=== PATIENT | male | born 1945 | race Caucasian/White ===

== ENCOUNTER → 2018-05-12 09:29 | Outpatient (CLI) | payer MEDICARE, OTHER, SELFPAY ==
[2018-05-12 12:03] LABS: Absolute Lymphocyte Count 2.14 X10^3/ul (0.83-4.51); Absolute Neutrophil Count 4.2 X10^3/uL (2.0-7.7); Basophil# 0.03 X10^3/uL; Basophil% 0.4 % (0-1); Eosinophil# 0.23 X10^3/uL; Eosinophils% 3.1 % (0-5); Hematocrit 43.3 % (40-54); Hemoglobin 14.1 g/dl (13.0-16.5); Lymphocyte # 2.14 X10^3/ul (4.0); Lymphocyte % 28.7 % (19-41); Mean Corp Hgb Conc 32.6 g/gl (32-36); Mean Corpuscular Hgb 28.5 pg (27.0-32.0); Mean Corpuscular Volume 87.5 fL (80-94); Mean Platelet Vol. 10.9 fl (6.2-12.0); Monocyte# 0.83 X10^3/uL; Monocyte% 11.1 % (0-10); Neutrophil # 4.21 X10^3/uL (2.7-7.7); Neutrophil % 56.4 % (47-70); Platelet Count 223 K/mm3 (150-450); Red Blood Count 4.95 M/mm3 (4.6-6.2); White Blood Count 7.5 K/mm3 (4.4-11.0)
[2018-05-12 12:06] LABS: POSITIVE COUNT NO; POSITIVE DIFFERENTIAL NO; POSITIVE MORPHOLOGY NO
[2018-05-12 12:24] LABS: Hemoglobin A1c 5.8 % (4.2-6.3)
[2018-05-12 12:26] LABS: ALB/GLOB Ratio 1.1 RATIO (0.9-2.4); AST(SGOT) 18 U/L (15-37); Alanine Aminotransfer ALT/SGPT 28 U/L (16-61); Albumin, Serum 3.9 g/dL (3.2-5.0); Alkaline Phosphatase 94 U/L (45-117); Anion Gap 9 (5-15); BUN 14 mg/dL (7-18); BUN/Creat Ratio 13.7 RATIO (10-20); Calcium,Total 9.3 mg/dL (8.5-10.1); Chloride 105 mmol/L (98-107); Cholesterol 169 mg/dL (200); Creatinine, Serum 1.02 mg/dL (0.70-1.30); EST Glomerular Filtration Rate 76 mL/min (>60); Est Glom Filt Rate - Afr Amer 92 mL/min (>60); Globulin 3.6 g/dL (2.2-4.2); Glucose 119 mg/dL (74-106); High Density Lipoprotein 46 mg/dL; Potassium 4.4 mmol/L (3.5-5.1); Protein, Total 7.5 g/dL (6.4-8.2); Sodium Level 142 mmol/L (136-145); Triglycerides 121 mg/dL; Uric Acid 5.5 mg/dL (3.5-7.2); Very Low Density Lipoprotein 24 mg/dL (5-40)
[2018-05-12 12:40] LABS: Microalbumin:Creatinine Ratio 26.3 mg/g CRE (<30 mg/g CRE)
== END ==
PROVIDERS: Family Provider Family Medicine; PCP Family Medicine; Visit Provider Family Medicine
DX: E11.9 Type 2 diabetes mellitus without complications (principal); M10.9 Gout, unspecified; E66.9 Obesity, unspecified
CPT/HCPCS: 36415; 80053; 80061; 82043; 82570; 83036; 84550; 85025

== ENCOUNTER 2018-08-17 23:33 | Inpatient (IN) | payer MEDICARE, OTHER, SELFPAY ==
[2018-08-17 23:34] VITALS: BP 161/80; PULSE 96; RESP 20; TEMP 37.2; O2SAT 94; BMI 31.5
[2018-08-18] VITALS (15 sets, daily range): BP systolic 116–161; BP diastolic 60–87; PULSE 76–93; RESP 16–24; TEMP 36.6–37.2; O2SAT 90–100; BMI 31.6
--- NOTE | 2018-08-18 00:19 | ED.VISSUMM ---
- ER Visit Summary Date of Service: 08/18/18 Chief Complaint: Incontinence and confusion History of Present Illness: The patient is a 72 M who was brought to the emergency room by his because of incontinence and confusion. He also has a cough. Patient states there is nothing wrong with him. was the informant. He has been incontinent with increased urination the past 24-48 hours. He is also had a cough which is nonproductive. There is been no documented fever. History is limited because patient is disoriented. Physical Examination: Vital signs remarkable for blood pressure 161/80. Pulse ox is only 90% on room air. Patient is alert but he is disoriented. HEENT exam is remarkable for nasal congestion. Lungs reveal fine rales. Heart is regular. Abdomen is soft nontender. There is mild swelling of his extremities. Motor is 5/5. Sensations intact. DTRs symmetric. Cranial 2 through 12 are intact. Gait was not tested. Finger-nose to finger was performed well. Test Results: White count is 13.8 thousand with 79 segs no bands. Basic metabolic panel is unremarkable. Urine is remarkable for blood and ketones. There is no evidence of infection. Two-view chest x-ray reveals no acute pathology. Since patient is hypoxic with a normal chest x-ray will obtain a CTA to evaluate for pulmonary embolus. There may be a small pneumonia that was not detected on the x-ray. Because patient is disoriented incontinent will obtain a CT of the head to evaluate for intracranial reason for his change in mental status since there is no metabolic or infectious etiology. Emergency Department Course and Treatment: With history of confusion frequency and incontinence UA was obtained to assess for UTI. With complaint of runny nose abnormal auscultatory findings and pulse ox 90% chest x-ray appropriate blood work and influenza screen was obtained to evaluate his respiratory symptoms. Believe patient has infectious encephalopathy and reason he is disoriented. CT was not obtained since he does not have focal neurologic findings. Treatment Plan: Further testing and disposition once all tests are done Disposition: Pending Impression: 1. Hypoxia, pulse ox 88% room air 2. Acute disorientation/change in mental status with incontinence evaluate for normal pressure hydrocephalus 3. History of diabetes 4. History hypercholesterolemia 5. History of benign prostatic hypertrophy This note was generated with [employer] software. It may contain incorrect words, spelling, and punctuation that were not noted in review of the chart prior to signing Is unchanged ED Disposition - Plan for ED Patient: Chief Complaint: Complaint Referrals: Dallas Vitale DO [Primary Care Provider] -
[2018-08-18 00:33] LABS: Bacteria 0 SEEN /hpf (None Seen); Mucous, Urine 0 SEEN /hpf (<or=2+); Red Blood Cells-Urine 0 SEEN /hpf (0-5); Squamous Epithelial Cells - UA 0 SEEN /hpf (0-5); White Blood Cells 0 SEEN /hpf (0-5)
[2018-08-18 00:39] LABS: Color, Urine Yellow (Yellow); Glucose, Dipstick Normal (Normal); Ketone-Dipstick 15 mg/dl (Negative); Leukocyte Esterase-Dipstick Negative /ul (Negative); Nitrite-Dipstick Negative (Negative); Occult Blood-Urine 150 /ul (Negative); Protein-Dipstick 100 mg/dl (Negative); Specific Gravity, Urine 1.015 (1.002-1.030); Urine Bilirubin Dipstick Negative (Negative); Urine Clarity Clear (Clear); Urine Urobilinogen 4 mg/dl (Normal)
[2018-08-18 00:40] LABS: Anion Gap 8 (5-15); BUN 16 mg/dL (7-18); BUN/Creat Ratio 14.3 RATIO (10-20); Calcium,Total 8.9 mg/dL (8.5-10.1); Chloride 103 mmol/L (98-107); Creatinine, Serum 1.12 mg/dL (0.70-1.30); EST Glomerular Filtration Rate 68 mL/min (>60); Est Glom Filt Rate - Afr Amer 82 mL/min (>60); Estimated Creatinine Clearance 60.65 ml/min; Glucose 132 mg/dL (74-106); Potassium 3.8 mmol/L (3.5-5.1); Sodium Level 135 mmol/L (136-145)
[2018-08-18 00:43] LABS: Absolute Lymphocyte Count 1.01 X10^3/ul (0.83-4.51); Absolute Neutrophil Count 10.9 X10^3/uL (2.0-7.7); Basophil# 0.02 X10^3/uL; Basophil% 0.1 % (0-1); Eosinophil# 0.03 X10^3/uL; Eosinophils% 0.2 % (0-5); Hematocrit 40.6 % (40-54); Hemoglobin 13.3 g/dl (13.0-16.5); Lymphocyte # 1.01 X10^3/ul (4.0); Lymphocyte % 7.3 % (19-41); Mean Corp Hgb Conc 32.8 g/gl (32-36); Mean Corpuscular Volume 85.5 fL (80-94); Mean Platelet Vol. 9.9 fl (6.2-12.0); Monocyte# 1.79 X10^3/uL; Neutrophil # 10.94 X10^3/uL (2.7-7.7); Neutrophil % 79.2 % (47-70); Platelet Count 175 K/mm3 (150-450); RBC Distribution Width CV 13.7 % (11.6-14.6); RBC Distribution Width SD 42.9 fl (35.1-43.9); Red Blood Count 4.75 M/mm3 (4.6-6.2); White Blood Count 13.8 K/mm3 (4.4-11.0)
--- NOTE | 2018-08-18 00:47 | RAD_ITS ---
STUDY: X-RAY CHEST REASON FOR EXAM: Male, 72 years old. Cough TECHNIQUE: Frontal and lateral views of the chest. COMPARISON: None. FINDINGS: Subsegmental atelectases are noted in the right and left lung bases. There is no demonstrated pleural abnormality. Normal size heart. Normal mediastinum and norberto. Normal visualized pulmonary arteries. Normal visualized aortic arch and descending thoracic aorta. There are diffuse degenerative changes and dextroscoliosis of the visualized thoracic spine. Normal visualized ribs, clavicles, and shoulders. There is no demonstrated abnormality of the visualized soft tissue structures of the upper abdomen. RAD/Chest PA and Lateral IMPRESSION: Degenerative changes, as described above. No demonstrated acute cardiopulmonary process. Electronically Signed: Ryan Abreu MD at 1:38 EST Tel , Service support ,
[2018-08-18 00:48] LABS: Differential Indicated SCAN CRITERIA MET; POSITIVE COUNT NO; POSITIVE DIFFERENTIAL YES; POSITIVE MORPHOLOGY NO
--- NOTE | 2018-08-18 00:56 | CT_ITS ---
STUDY: CTA CHEST REASON FOR EXAM: Male, 72 years old. Hypoxia. RADIATION DOSAGE (If Supplied By Facility): CTDIvol = ( 19.63 ) mGy, DLP = ( 726.69 ) mGycm TECHNIQUE: The examination was performed with the intravenous administration of 100 ml of Isovue 370 contrast material. Post-processing of the angiographic images was performed, with multiplanar reformation, but without 3D reconstruction. Individualized dose optimization techniques were used for this CT. COMPARISON: Chest x-ray 08/18/2018. FINDINGS: Normal enhancement of the main pulmonary artery and right and left pulmonary arteries. Normal enhancement of the bilateral peripheral pulmonary arteries. There is no demonstrated pulmonary embolism. There is mild atherosclerotic calcification of the thoracic aorta and visualized great vessels. The left common carotid artery originates from the right brachiocephalic artery, consistent with bovine configuration of the great vessels, a developmental variant. There is no demonstrated aortic dissection. Normal heart and pericardium. There are coronary artery calcifications. There are visualized mediastinal lymph nodes, which are within normal size limits, and with normal morphology. There is an enlarged right hilar lymph node with short axis diameter 1.3 cm. Normal visualized trachea. There is mild bronchiectasis, which is most evident in the lower lobes. There is bronchial wall thickening, is most prominent in the right upper lobe and may represent an infectious or inflammatory bronchitis.. The lungs are hyper expanded, with flattening of the hemidiaphragms. Normal pulmonary parenchyma. Normal pleura. Normal chest wall structures. There are degenerative changes of thoracic spine. There is a small hiatal hernia. CT/CTA Chest W/WO Contrast IMPRESSION: No demonstrated pulmonary embolism, aortic aneurysm, or aortic dissection. COPD. Bronchiectasis. Bronchial wall thickening, most prominent in the right upper lobe, may represent an infectious or inflammatory bronchitis. Atherosclerosis. Mild right hilar lymphadenopathy. Electronically Signed: Bro Fuentes MD at 2:47 EST , Service support ,
--- NOTE | 2018-08-18 00:59 | CT_ITS ---
STUDY: CT BRAIN WITHOUT CONTRAST REASON FOR EXAM: Male, 72 years old. Altered mental status. Incontinence. RADIATION DOSAGE (If Supplied By Facility): CTDIvol = ( 44.99 ) mGy, DLP = ( 812.98 ) mGycm TECHNIQUE: Transaxial CT imaging of the brain was performed without administration of intravenous contrast material. Individualized dose optimization techniques were used for this CT. COMPARISON: None. FINDINGS: Normal soft tissue structures. There is hyperostosis frontalis internus. There is mild cerebral atrophy with widening of the extra-axial spaces and ventricular dilatation. There are areas of decreased attenuation within the white matter tracts of the supratentorial brain, consistent with microvascular disease changes. Normal basal ganglia and thalami. Normal brainstem. Normal cerebellum. There is atherosclerotic calcification of the vertebral and cavernous carotid arteries. There is no intracranial hemorrhage. There are no findings of an acute ischemic infarction. There is mucoperiosteal thickening in bilateral maxillary, bilateral ethmoid, and left frontal sinuses, consistent with chronic sinusitis. There is a small amount of fluid with air-fluid levels in the maxillary sinuses bilaterally, consistent with overlying acute sinusitis. CT/Brain/Head without Contrast IMPRESSION: Chronic involutional changes of the brain. No demonstrated acute intracranial process. Mild bilateral acute maxillary sinusitis, overlying more extensive chronic sinus disease. Electronically Signed: Bro Fuentes MD at 2:28 EST , Service support ,
[2018-08-18 01:13] LABS: Differential Comment SCANNED
--- NOTE | 2018-08-18 03:37 | PCM.HP.STD ---
Problem List (1) Acute bronchitis Status: Acute History of Present Illness Date of Admission: 08/18/18 Chief Complaint: cold-like symptoms The patient is a 72 year old M with a significant history of dementia; hypertension; diabetes mellitus; gout; benign prostatic hypertrophy; obstructive sleep apnea; obstructive sleep apnea status post uvulopalatoplasty who came to the hospital because of cold-like symptoms. History was obtained from patient's as patient was confused and was confabulating. reports that patient has had cold-like symptoms. She described the cold symptoms as a runny nose and cough. Associated with her symptoms is chills. Although patient has a baseline dementia his reports that patient has had an increase in his confusion. Unlike previous patient has been incontinent. And he appeared very weak. Because of history of previous UTI his thought that may be he is having a UTI so he was brought to the emergency department. However at emergency department his urine did not show UTI but it showed proteinuria. He had leukocytosis of 13.8 and mild hyponatremia. Chest x-ray was unremarkable. However a CTA of his chest showed bronchiectasis and bronchial wall thickening. Emergency department doctor reported that was on room air patient oxygen saturation was 88%. Past Medical History Medical History: Medical History (Last Updated 08/18/18 @ 04:47 by Bowen Lechuga MD) BPH (benign prostatic hyperplasia) N40.0 Dementia F03.90 Diabetes E11.9 Gout M10.9 HTN (hypertension) I10 Allergies Penicillins Allergy (Verified 08/17/18 23:34) Unknown Home Medications: Ambulatory Orders Medication Instructions Recorded Allopurinol 100 mg PO DAILY 01/07/15 Lovastatin 20 mg PO DAILY 01/07/15 Metformin HCl [Glucophage] 500 mg PO DAILY 01/07/15 Aspirin [Aspirin, Baby] 81 mg PO DAILY 08/17/18 Memantine HCl 10 mg PO BID 08/17/18 Surgical History: appendectomy - Patient reported that while his appendix was being taken out his gallbladder was taken out too. But his is not sure whether indeed his gallbladder was taken out too., total hip arthroplasty - Left hip, - - Left shoulder surgery. Lives: Spouse/ Significant Other Smoking Status: Never smoker Alcohol: None - *Family History Maternal Family History: Family History (Last Updated 08/18/18 @ 04:49 by Bowen Lechuga MD) Mother Hypertension Father CVA (cerebral vascular accident) Review of Systems Constitutional: Reports: Chills, Weakness. Denies: Fever, Weight Change HEENT: Reports: Sinus Congestion, Sinus Drainage. Denies: Head Aches Cardiovascular: Denies: Chest Pain, Palpitations Respiratory: Reports: Cough, Sputum production Gastrointestinal: Denies: Abdominal Pain, Nausea, Vomiting Genitourinary: Reports: Incontinence. Denies: Dysuria Musculoskeletal: Denies: Joint Pain, Joint Tenderness Skin: Denies: Rash, Wounds Neurological: Denies: Numbness, Tingling, Focal weakness Psychiatric: Denies: Anxiety, Depression, Homicidal Ideations, Suicidal Ideations Hematologic/ Lymphatic: Denies: Easy Bruising, Easy Bleeding VTE Information - Inpt Only VTE Present on Admission: No VTE Mechan Device Prophylaxis: None VTE Pharm Prophylaxis ordered?: Yes Patient Problems: Active and Suspected Problems (Last Updated 08/18/18 @ 04:47 by Bowen Lechuga MD) Acute bronchitis (Acute) - Physical Exam General: Alert, Confused HEENT: Atraumatic, PERRLA, EOMI, Normocephalic Neck: Supple, No JVD, Negative Carotid Bruits Lungs: Rales, Wheezes Cardiovascular: Regular rate Abdomen: Bowel Sounds Present, Non Tender Extremities: No edema, Capillary Refill Less than 3 Seconds Skin: No rashes, No breakdown Musculoskeletal: No Muscle Wasting Neurological: - - Patient is confused and he is confabulating. Psych/Mental Status: Appropriate Vital Signs Temp Pulse Resp BP Pulse Ox 98.9 F 85 18 140/81 H 92 08/18/18 02:31 08/18/18 02:31 08/18/18 02:31 08/18/18 02:31 08/18/18 02:31 Oxygen Flow Rate (L/min) 2 Oxygen Delivery Method Nasal Cannula Weight: 99.79 kg Body Mass Index (BMI) 31.5 Microbiology Past 72 Hours 08/18/18 00:45 Influenza Types A,B Direct FA (ABDIRAHMAN) - Final Mucosa - Nasopharyngeal Laboratory Tests Past 24 Hrs 08/17/18 08/17/18 08/17/18 00:14 00:14 00:14 WBC 13.8 H RBC 4.75 Hgb 13.3 Hct 40.6 MCV 85.5 MCH 28.0 MCHC 32.8 RDW 13.7 RDW Differential 42.9 Plt Count 175 MPV 9.9 Immature Gran % (Auto) 0.200 Neut % (Auto) 79.2 H Lymph % (Auto) 7.3 L [place] % (Auto) 13.0 H Eos % (Auto) 0.2 Baso % (Auto) 0.1 Absolute Neuts (auto) 10.9 H Absolute Lymphs (auto) 1.01 Total Counted Not Reportable Differential Comment SCANNED Diff Path Review May foll Sodium 135 L Potassium 3.8 Chloride 103 Carbon Dioxide 24.0 Anion Gap 8 BUN 16 Creatinine 1.12 Estim Creat Clear Calc 60.65 Est GFR (MDRD) Af Amer 82 Est GFR (MDRD) Non-Af 68 BUN/Creatinine Ratio 14.3 Glucose 132 H Lactic Acid 1.0 Calcium 8.9 Urine Color Urine Clarity Urine pH Ur Specific [place] Urine Protein Urine Glucose (UA) Urine Ketones Urine Occult Blood Urine Nitrite Urine Bilirubin Urine Urobilinogen Ur Leukocyte Esterase Urine RBC Urine WBC Ur Squamous Epith Cells Urine Bacteria Urine Mucus 08/17/18 00:50 WBC RBC Hgb Hct MCV MCH MCHC RDW RDW Differential Plt Count MPV Immature Gran % (Auto) Neut % (Auto) Lymph % (Auto) [place] % (Auto) Eos % (Auto) Baso % (Auto) Absolute Neuts (auto) Absolute Lymphs (auto) Total Counted Differential Comment Diff Path Review Sodium Potassium Chloride Carbon Dioxide Anion Gap BUN Creatinine Estim Creat Clear Calc Est GFR (MDRD) Af Amer Est GFR (MDRD) Non-Af BUN/Creatinine Ratio Glucose Lactic Acid Calcium Urine Color Yellow Urine Clarity Clear Urine pH 5.0 Ur Specific [place] 1.015 Urine Protein 100 H Urine Glucose (UA) Normal Urine Ketones 15 H Urine Occult Blood 150 H Urine Nitrite Negative Urine Bilirubin Negative Urine Urobilinogen 4 H Ur Leukocyte Esterase Negative Urine RBC 0 SEEN Urine WBC 0 SEEN Ur Squamous Epith Cells 0 SEEN Urine Bacteria 0 SEEN Urine Mucus 0 SEEN Assessment/Plan All Active Problems (Last Updated 08/18/18 @ 04:47 by Bowen Lechuga MD) Acute bronchitis (Acute) The patient is a 72 year old M with a significant history of dementia; hypertension; diabetes mellitus; gout; benign prostatic hypertrophy; obstructive sleep apnea; obstructive sleep apnea status post uvulopalatoplasty who came to the hospital because of cold-like symptoms; incontinence of urine a; mild leukocytosis and radiographic evidence of bronchiectasis and bronchial wall thickening.. Acute hypoxemic respiratory failure secondary to bronchiectasis with acute bronchitis. Patient with oxygen saturation of 88% on room air whiles at emergency department. And on 2 L his oxygen saturation was 92%. Levaquin was started at emergency departments. We will continue Levaquin. Because patient had moderate wheezing and rhonchi will initiate prednisone treatment. Scheduled DuoNeb As needed albuterol ordered Flonase and Mucinex ordered. Will order a comprehensive respiratory pathogen panel. His rapid influenza screen was negative. Supplemental oxygen to keep his saturation above 90%. 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 Trend BMP. Diabetes mellitus On admission his blood glucose was within goal. We will continue home metformin. Hypertension His blood pressure on admission was stable for his age and comorbidities. Not on any home blood pressure medication Trend blood pressure Obstructive Sleep apnea BiPAP continued. DVT prophylaxis Subcutaneous heparin. Code Visit Inpatient E&M: 16188 Init Hosp L3
[2018-08-18] MEDS: levoFLOXacin IV 750 MG/150 ML BAG 100 MG IV ×2 (04:25→22:01)
[2018-08-18] MEDS: predniSONE 20 MG Tablet 40 MG PO (05:36)
[2018-08-18] MEDS: Fluticasone 0.05% 1 SPRAY NASAL.SRY NASAL ×2 (05:36→22:00)
[2018-08-18] MEDS: Ipratropium/Albuterol Sulfate 3 ML AMPUL.NEB INHALATION ×5 (07:13→23:46)
[2018-08-18] MEDS: Allopurinol 100 MG Tablet PO (09:56)
[2018-08-18] MEDS: guaiFENesin 1,200 MG Tablet 1200 MG PO ×2 (09:56→22:01)
[2018-08-18] MEDS: Memantine Hydrochloride 10 MG Tablet PO ×2 (09:56→22:01)
[2018-08-18] MEDS: Enoxaparin 40 MG/0.4 ML Syringe SC (09:57)
[2018-08-18] MEDS: Aspirin 81 MG TAB.CHEW PO (09:57)
[2018-08-18] MEDS: Glucerna Shake 120 ML LIQUID PO ×2 (09:57→12:48)
--- NOTE | 2018-08-18 10:00 | CASEMGMT ---
RN QUINTIN Face to Face with patient for initial transition planning/care coordination assessment. RN QUINTIN introduced self and role at [facility]. Patient sitting in chair, alert and oriented, family at bedside. Patient willing to participate in assessment and is able to answer all questions appropriately. Care providers, pharmacy, and demographics verified. Patient wishes to discharge home, denies need for HHC. Patient states he has no further needs or concerns at this time. CM to continue to follow patient for discharge needs. PCP: Iam Specialists: None Preferred Pharmacy: [facility] Insurance: [facility] Prescription Benefit: Yes Living Will/HPOA: Yes Sobeida Zavala HPOA LNOK: , daughter Living Arrangements: Patient lives with in split level home. Patient is indepedent at home. Ramp to enter the home. Transportation: Family DME/HHC: Patient has cane, walker, and Cpap at home. Denies HHC Disposition Plan: Patient to discharge home with family support and follow-up plans in place. Kelly SANTIAGO, RN, CM
[2018-08-18 10:57] LABS: Pathologist Review Reviewed
--- NOTE | 2018-08-18 21:19 | PN_ITS ---
Patient Problems: Active and Suspected Problems (Last Updated 08/18/18 @ 04:47 by Bowen Lechuga MD) Acute bronchitis (Acute) Subjective: Patient is a 72-year-old male with a past medical history of dementia, hypertension, diabetes mellitus, gout, BPH, obstructive sleep apnea (noncompliant with CPAP) who presented to the emergency department at [facility] on 08/18/2018 with cough and increased confusion. His stated he had a runny nose and had chills at home. He has gotten progressively weaker over the past few days. He was afebrile in the emergency room with a blood pressure of 161/80, respiratory rate of 20 and a pulse ox of 90-94% on room air. White blood cell count was elevated at 13.8 with 80% neutrophils. Sodium was mildly decreased at 135. Lactic acid was 1.0 and a UA was negative for evidence of urinary tract infection. Influenza swab in the emergency department was negative however respiratory panel was positive for influenza A. The pt has no complaints at this time. He is oriented to person. Objective: PHYSICAL EXAM: GENERAL: alert, oriented X 1, Cooperative, NAD, the head is atraumatic ORAL: moist mucosa, no mucosal lesions NECK: No JVD, supple, trachea midline LUNGS: Coarse breath sounds and expiratory wheezing throughout. There is symm etric chest expansion. He has no tachypnea and no conversational dyspnea. HEART: RRR, Normal S1 and S2, no rub, no gallop ABDOMEN: soft, NT, ND, BS present, no guarding with palpation EXTREMITIES: no edema, no cyanosis, no calf tenderness SKIN: No rashes, no breakdown NEUROLOGIC: no focal neurologic deficits, able to follow commands but is confused and confabulating. PSYCH: appropriate, normal affect, pleasant - Physical Exam Vital Signs Temp Pulse Resp BP Pulse Ox 97.8 F 76 20 H 116/60 100 08/18/18 16:00 08/18/18 20:00 08/18/18 20:00 08/18/18 16:00 08/18/18 16:00 Oxygen Flow Rate (L/min) 2 Oxygen Delivery Method Room Air Weight: 220 lb 0.341 oz Body Mass Index (BMI) 31.6 Intake and Output for Last 24 Hours 08/16/18 08/17/18 08/18/18 23:59 23:59 23:59 Intake Total 510 / 510 Balance 510 / 510 Microbiology Past 72 Hours 08/18/18 05:24 Gram Stain - Final Sputum, Expectorated/Coughed 08/18/18 07:25 Respiratory Panel (PCR) - Final Mucosa - Nasopharyngeal Influenza A (Subtype H3) 08/18/18 00:45 Influenza Types A,B Direct FA (ABDIRAHMAN) - Final Mucosa - Nasopharyngeal Laboratory Tests Past 24 Hrs 08/17/18 08/17/18 08/17/18 00:14 00:14 00:14 WBC 13.8 H RBC 4.75 Hgb 13.3 Hct 40.6 MCV 85.5 MCH 28.0 MCHC 32.8 RDW 13.7 RDW Differential 42.9 Plt Count 175 MPV 9.9 Immature Gran % (Auto) 0.200 Neut % (Auto) 79.2 H Lymph % (Auto) 7.3 L [place] % (Auto) 13.0 H Eos % (Auto) 0.2 Baso % (Auto) 0.1 Absolute Neuts (auto) 10.9 H Absolute Lymphs (auto) 1.01 Total Counted Not Reportable Differential Comment SCANNED Diff Path Review Reviewed Sodium 135 L Potassium 3.8 Chloride 103 Carbon Dioxide 24.0 Anion Gap 8 BUN 16 Creatinine 1.12 Estim Creat Clear Calc 60.65 Est GFR (MDRD) Af Amer 82 Est GFR (MDRD) Non-Af 68 BUN/Creatinine Ratio 14.3 Glucose 132 H Lactic Acid 1.0 Calcium 8.9 Urine Color Urine Clarity Urine pH Ur Specific [place] Urine Protein Urine Glucose (UA) Urine Ketones Urine Occult Blood Urine Nitrite Urine Bilirubin Urine Urobilinogen Ur Leukocyte Esterase Urine RBC Urine WBC Ur Squamous Epith Cells Urine Bacteria Urine Mucus 08/17/18 00:50 WBC RBC Hgb Hct MCV MCH MCHC RDW RDW Differential Plt Count MPV Immature Gran % (Auto) Neut % (Auto) Lymph % (Auto) [place] % (Auto) Eos % (Auto) Baso % (Auto) Absolute Neuts (auto) Absolute Lymphs (auto) Total Counted Differential Comment Diff Path Review Sodium Potassium Chloride Carbon Dioxide Anion Gap BUN Creatinine Estim Creat Clear Calc Est GFR (MDRD) Af Amer Est GFR (MDRD) Non-Af BUN/Creatinine Ratio Glucose Lactic Acid Calcium Urine Color Yellow Urine Clarity Clear Urine pH 5.0 Ur Specific [place] 1.015 Urine Protein 100 H Urine Glucose (UA) Normal Urine Ketones 15 H Urine Occult Blood 150 H Urine Nitrite Negative Urine Bilirubin Negative Urine Urobilinogen 4 H Ur Leukocyte Esterase Negative Urine RBC 0 SEEN Urine WBC 0 SEEN Ur Squamous Epith Cells 0 SEEN Urine Bacteria 0 SEEN Urine Mucus 0 SEEN Medical Necessity - Tobacco Use Smoking Status: Never smoker Assessment/Plan All Active Problems (Last Updated 08/18/18 @ 04:47 by Bowen Lechuga MD) Acute bronchitis (Acute) Impressions 1. Influenza A 2. Generalized debility with weakness 3. Dementia with probable coexisting encephalopathy secondary to infection 4. HARINDER-not always compliant with CPAP 5. BPH 6. Status post uvulopalatoplasty 7. Diabetes mellitus type 2 8. Gout 9. Hypertension His symptoms started approximately 1 week ago and therefore he is not a candidate for Tamiflu. Continue oxygen protocol Continue Lovenox for DVT prophylaxis Continue guaifenesin and DuoNeb's Continue Levaquin until the final sputum culture is available. Seroquel 25 mg at bedtime Continue prednisone and order accuchecks and SSI
[2018-08-18] MEDS: Atorvastatin Calcium 10 MG Tablet 5 MG PO (22:01)
[2018-08-18] MEDS: Insulin Lispro 100 UNIT/ML INSULN.PEN SC (22:16)
[2018-08-18 23:00] LABS: Bedside Glucose 216 mg/dL (70-110)
[2018-08-19] VITALS (11 sets, daily range): BP systolic 120–146; BP diastolic 72–77; PULSE 76–98; RESP 18–21; TEMP 36.8–37.1; O2SAT 91–97
[2018-08-19 06:56] LABS: Bedside Glucose 113 mg/dL (70-110)
[2018-08-19] MEDS: Ipratropium/Albuterol Sulfate 3 ML AMPUL.NEB INHALATION ×5 (07:03→22:22)
[2018-08-19 07:08] LABS: Absolute Lymphocyte Count 1.39 X10^3/ul (0.83-4.51); Basophil# 0.02 X10^3/uL; Basophil% 0.2 % (0-1); Eosinophil# 0.02 X10^3/uL; Eosinophils% 0.2 % (0-5); Hematocrit 36.8 % (40-54); Hemoglobin 12.2 g/dl (13.0-16.5); Lymphocyte # 1.39 X10^3/ul (4.0); Lymphocyte % 11.8 % (19-41); Mean Corp Hgb Conc 33.2 g/gl (32-36); Mean Corpuscular Hgb 28.2 pg (27.0-32.0); Mean Corpuscular Volume 85.2 fL (80-94); Mean Platelet Vol. 10.5 fl (6.2-12.0); Monocyte# 1.33 X10^3/uL; Monocyte% 11.3 % (0-10); Neutrophil # 9.01 X10^3/uL (2.7-7.7); Neutrophil % 76.3 % (47-70); Platelet Count 187 K/mm3 (150-450); RBC Distribution Width CV 13.7 % (11.6-14.6); RBC Distribution Width SD 42.8 fl (35.1-43.9); Red Blood Count 4.32 M/mm3 (4.6-6.2); White Blood Count 11.8 K/mm3 (4.4-11.0)
[2018-08-19 07:14] LABS: POSITIVE COUNT NO; POSITIVE DIFFERENTIAL NO; POSITIVE MORPHOLOGY NO
[2018-08-19 07:27] LABS: Anion Gap 11 (5-15); BUN 19 mg/dL (7-18); BUN/Creat Ratio 17.4 RATIO (10-20); Chloride 105 mmol/L (98-107); Creatinine, Serum 1.09 mg/dL (0.70-1.30); EST Glomerular Filtration Rate 70 mL/min (>60); Est Glom Filt Rate - Afr Amer 85 mL/min (>60); Estimated Creatinine Clearance 62.32 ml/min; Glucose 108 mg/dL (74-106); Phosphorus 2.3 mg/dL (2.5-4.9); Potassium 3.4 mmol/L (3.5-5.1); Sodium Level 140 mmol/L (136-145)
[2018-08-19] MEDS: Glucerna Shake 120 ML LIQUID PO ×3 (08:24→16:21)
[2018-08-19] MEDS: predniSONE 20 MG Tablet 40 MG PO (08:24)
[2018-08-19] MEDS: Allopurinol 100 MG Tablet PO (08:25)
[2018-08-19] MEDS: Aspirin 81 MG TAB.CHEW PO (08:25)
[2018-08-19 08:47] LABS: Hemoglobin A1c 6.1 % (4.2-6.3)
[2018-08-19] MEDS: Fluticasone 0.05% 1 SPRAY NASAL.SRY NASAL ×2 (09:45→21:52)
[2018-08-19] MEDS: guaiFENesin 1,200 MG Tablet 1200 MG PO ×2 (09:46→21:52)
[2018-08-19] MEDS: Enoxaparin 40 MG/0.4 ML Syringe SC (09:46)
[2018-08-19] MEDS: Memantine Hydrochloride 10 MG Tablet PO ×2 (09:46→21:52)
[2018-08-19] MEDS: Insulin Lispro 100 UNIT/ML INSULN.PEN SC ×3 (11:37→21:57)
[2018-08-19 11:56] LABS: Bedside Glucose 223 mg/dL (70-110)
--- NOTE | 2018-08-19 13:44 | PCM.PROGNOTE ---
Subjective: All events the past 24 hours of been reviewed. He remains afebrile Vital signs are stable Pulse ox on room air ranges from 92-96% Lab: Potassium is low at 3.4 today. White blood cell count remains elevated at 11.8, down from 13.8 at admission. Microbiology: Sputum is positive for streptococcal pneumoniae, respiratory panel was positive for influenza A He is more alert today. He has no complaints Objective: PHYSICAL EXAM: GENERAL: alert, oriented X 1, Cooperative, NAD, the head is atraumatic. more alert today ORAL: moist mucosa, no mucosal lesions NECK: No JVD, supple, trachea midline LUNGS: Coarse breath sounds with rare end exp wheeze today. There is symmetric chest expansion. He has no tachypnea and no conversational dyspnea. HEART: RRR, Normal S1 and S2, no rub, no gallop ABDOMEN: soft, NT, ND, BS present, no guarding with palpation EXTREMITIES: no edema, no cyanosis, no calf tenderness SKIN: No rashes, no breakdown NEUROLOGIC: no focal neurologic deficits, able to follow commands but is confused and confabulating. PSYCH: appropriate, normal affect, pleasant - Physical Exam Vital Signs Temp Pulse Resp BP Pulse Ox 98.2 F 92 20 H 143/73 H 97 08/19/18 08:10 08/19/18 08:10 08/19/18 10:52 08/19/18 08:10 08/19/18 08:10 Oxygen Flow Rate (L/min) 2 Oxygen Delivery Method Room Air Weight: 220 lb 0.341 oz Body Mass Index (BMI) 31.6 Intake and Output for Last 24 Hours 08/17/18 08/18/18 08/19/18 23:59 23:59 23:59 Intake Total 510 / 510 1539 / 1539 Output Total 1125 / 1125 Balance 510 / 510 414 / 414 Microbiology Past 72 Hours 08/18/18 05:24 Gram Stain - Final Sputum, Expectorated/Coughed Respiratory Culture - Preliminary Streptococcus group A 08/18/18 07:25 Respiratory Panel (PCR) - Final Mucosa - Nasopharyngeal Influenza A (Subtype H3) 08/18/18 00:45 Influenza Types A,B Direct FA (ABDIRAHMAN) - Final Mucosa - Nasopharyngeal Laboratory Tests Past 24 Hrs 08/19/18 08/19/18 08/19/18 06:05 06:05 06:05 WBC 11.8 H RBC 4.32 L Hgb 12.2 L Hct 36.8 L MCV 85.2 MCH 28.2 MCHC 33.2 RDW 13.7 RDW Differential 42.8 Plt Count 187 MPV 10.5 Immature Gran % (Auto) 0.200 Neut % (Auto) 76.3 H Lymph % (Auto) 11.8 L [place] % (Auto) 11.3 H Eos % (Auto) 0.2 Baso % (Auto) 0.2 Absolute Neuts (auto) 9.0 H Absolute Lymphs (auto) 1.39 Total Counted Not Reportable Sodium 140 Potassium 3.4 L Chloride 105 Carbon Dioxide 24.0 Anion Gap 11 BUN 19 H Creatinine 1.09 Estim Creat Clear Calc 62.32 Est GFR (MDRD) Af Amer 85 Est GFR (MDRD) Non-Af 70 BUN/Creatinine Ratio 17.4 Glucose 108 H Hemoglobin A1c 6.1 Calcium 9.0 Phosphorus 2.3 L Magnesium 2.0 POC Glucose 08/19/18 08/19/18 08/18/18 11:31 06:51 22:12 POC Glucose 223 H 113 H 216 H Medical Necessity - Tobacco Use Smoking Status: Never smoker Assessment/Plan All Active Problems (Last Updated 08/18/18 @ 04:47 by Bowen Lechuga MD) Encephalopathy due to infection (Acute) Streptococcus pneumoniae infection (Acute) Post viral debility (Acute) Influenza A (Acute) Acute bronchitis (Acute) Impressions 1. Influenza A 2. Generalized debility with weakness 3. Dementia with probable coexisting encephalopathy secondary to infection 4. HARINDER-not always compliant with CPAP 5. BPH 6. Status post uvulopalatoplasty 7. Diabetes mellitus type 2 8. Gout 9. Hypertension Continue current treatment Ambulatory pulse ox in the a.m. on room air Possible discharge tomorrow if he is able to ambulate Code Visit Inpatient E&M: 04333 Subs Hosp L2
[2018-08-19] MEDS: Ceftriaxone 1 GM/50 ML BAG IV (15:46)
[2018-08-19 16:32] LABS: Bedside Glucose 237 mg/dL (70-110)
[2018-08-19] MEDS: Atorvastatin Calcium 10 MG Tablet 5 MG PO (21:52)
[2018-08-19 22:11] LABS: Bedside Glucose 205 mg/dL (70-110)
[2018-08-20 03:10] VITALS: BP 122/80; PULSE 82; RESP 18; TEMP 36.6; O2SAT 94
[2018-08-20 06:46] LABS: Bedside Glucose 107 mg/dL (70-110)
[2018-08-20] MEDS: Ipratropium/Albuterol Sulfate 3 ML AMPUL.NEB INHALATION ×3 (07:34→15:09)
[2018-08-20 07:35] VITALS: PULSE 72; RESP 18; O2SAT 96
[2018-08-20 09:09] VITALS: BP 140/96; PULSE 87; RESP 18; TEMP 36.9; O2SAT 93
[2018-08-20] MEDS: Allopurinol 100 MG Tablet PO (09:12)
[2018-08-20] MEDS: Fluticasone 0.05% 1 SPRAY NASAL.SRY NASAL (09:12)
[2018-08-20] MEDS: Aspirin 81 MG TAB.CHEW PO (09:12)
[2018-08-20] MEDS: Enoxaparin 40 MG/0.4 ML Syringe SC (09:13)
[2018-08-20] MEDS: Memantine Hydrochloride 10 MG Tablet PO (09:15)
[2018-08-20] MEDS: predniSONE 20 MG Tablet 40 MG PO (09:15)
[2018-08-20] MEDS: Glucerna Shake 120 ML LIQUID PO ×2 (09:16→16:03)
[2018-08-20] MEDS: guaiFENesin 1,200 MG Tablet 1200 MG PO (09:16)
[2018-08-20] MEDS: Ceftriaxone 1 GM/50 ML BAG IV (09:19)
[2018-08-20] MEDS: Insulin Lispro 100 UNIT/ML INSULN.PEN SC ×2 (11:34→16:01)
[2018-08-20 11:35] VITALS: PULSE 82; RESP 18
[2018-08-20 12:16] LABS: Bedside Glucose 168 mg/dL (70-110)
[2018-08-20 14:03] VITALS: BP 117/67; PULSE 76; RESP 16; TEMP 36.2; O2SAT 95
[2018-08-20 15:10] VITALS: PULSE 74; RESP 18
[2018-08-20 16:26] LABS: Bedside Glucose 208 mg/dL (70-110)
--- NOTE | 2018-08-20 17:00 | DCINST_ITS ---
- Discharge Diagnoses Current Active Problems: Current Active and Chronic Problems (Last Updated 08/18/18 @ 04:47 by Bowen Lechuga MD) Acute bronchitis (Acute) secondary to Streptococcus pneumoniae and influenza a Post viral debility Encephalopathy due to infection You will use the following diet at home:: Other - Carbohydrate controlled diet Your food should be the consistency of: Regular Your liquids should be the consistency of: Regular/Thin Discharge Activity: - - Avoid exposure to any strong smells such as bleach, cleaning products, strong colognes or perfumes, paint fumes and smoke of any kind. Avoid sudden exposure to cold air because this can cause bronchospasm. You may want to cover your mouth when you go outside in the winter. Avoid exposure to anyone who is sick with a cough or sore throat. Call your doctor if you observe: Fever of 101 or Higher, Shortness of breath, Dizziness, Fainting spells, Chest pain, Calf discomfort Additional Instructions: The blood sugars will be high while he is on the Prednisone which is a steroid. This will make you urinate more so be sure todrink enough fluid to keep your urine a pale yellow. The HGBA1C is 6.1 and this is excellent. Allergies/Adverse Reactions: Allergies Penicillins Allergy (Verified 08/18/18 04:52) Unknown allergy occurred when he was a child - reaction unknown Medications to take at Discharge Allopurinol 100 mg PO DAILY 01/07/15 Lovastatin 40 mg PO DAILY 01/07/15 Metformin HCl [Glucophage] 500 mg PO DAILY 01/07/15 Aspirin [Aspirin, Baby] 81 mg PO DAILY 08/17/18 Memantine HCl 10 mg PO BID 08/17/18 Cefdinir [Omnicef [equiv]] 300 mg PO Q12H #10 capsule 08/20/18 Guaifenesin [Mucinex] 1,200 mg PO BID #20 tablet 08/20/18 Prednisone 10 mg PO UD #30 tab 08/20/18 The following prescriptions were given: Cefdinir [Omnicef [equiv]] 300 mg PO Q12H #10 capsule Prednisone 10 mg PO UD #30 tab Guaifenesin [Mucinex] 1,200 mg PO BID #20 tablet Primary Care Physician: Dallas Vitale DO [Primary Care Provider] - Please follow up with your Primary Care Physician in: 5-7 days Test Results: Test results from this visit will be discussed in further detail at your follow- up appointment, if applicable. Proposed Discharge Date: 08/20/18
--- NOTE | 2018-08-20 17:02 | PCM.DC.SUM ---
Discharge Date and Diagnosis - Problem List Patient Problems: Active and Suspected Problems (Last Updated 08/18/18 @ 04:47 by Bowen Lechuga MD) Encephalopathy due to infection (Acute) Streptococcus pneumoniae infection (Acute) Post viral debility (Acute) Influenza A (Acute) Acute bronchitis (Acute) Date of Admission: 08/18/18 Date of Discharge: 08/20/18 - Primary Discharge Diagnosis Active and Suspected Problems (Last Updated 08/18/18 @ 04:47 by Bowen Lechuga MD) Streptococcus pneumoniae infection (Acute) - bronchitis Influenza A (Acute) Acute bronchitis (Acute) Encephalopathy due to infection (Acute) Post viral debility (Acute) - Secondary Discharge Diagnosis Dementia Diabetes mellitus type 2 Obstructive sleep apnea-noncompliant with CPAP BPH Status post uvulopalatoplasty Gout Hypertension Hospital Course and Treatment Imaging Results: Clinical Impression(s) from Imaging Studies Chest X-Ray 08/18/18 00:47 IMPRESSION: Degenerative changes, as described above. No demonstrated acute cardiopulmonary process. Electronically Signed: Ryan Abreu MD at 1:38 EST Tel , Service support , Chest CTA 08/18/18 00:56 IMPRESSION: No demonstrated pulmonary embolism, aortic aneurysm, or aortic dissection. COPD. Bronchiectasis. Bronchial wall thickening, most prominent in the right upper lobe, may represent an infectious or inflammatory bronchitis. Atherosclerosis. Mild right hilar lymphadenopathy. Electronically Signed: Bro Fuentes MD at 2:47 EST , Service support , Brain CT 08/18/18 00:59 IMPRESSION: Chronic involutional changes of the brain. No demonstrated acute intracranial process. Mild bilateral acute maxillary sinusitis, overlying more extensive chronic sinus disease. Electronically Signed: Bro Fuentes MD at 2:28 EST , Service support , none Operations: None Procedures: None Summary of Care Provided: Patient is a 72-year-old male with a past medical history of dementia, hypertension, diabetes mellitus II, gout, BPH and obstructive sleep apnea (noncompliant with CPAP) who presented to the emergency department at [facility] on 08/18/2018 with cough and increased confusion. His stated he had a runny nose and had chills at home and that the sx had been present for about a week. He was getting progressively weaker over the few days preceding admission to the hospital. He was afebrile in the emergency room with a blood pressure of 161/80, respiratory rate of 20 and a pulse ox of 90-94% on room air. White blood cell count was elevated at 13.8 with 80% neutrophils. Sodium was mildly decreased at 135. Lactic acid was 1.0 and a UA was negative for evidence of urinary tract infection. Influenza swab in the emergency department was negative. Respiratory was positive for Influenza A He had already had SX for a week and Tamiflu was not indicated. He was admitted to the hospital and started on Steroids and aerosolized bronchodilators for acute bronchitis with Bronchospasm. He was also started on Levaquin by the admitting physician. A sputum was sent for culture and it was positive for group A strep. The antibiotic was changed to Rocephin. He was seen by PT and OT in the hospital and on 08/20/18 he was ambulated in the halls and did well. Physical therapy recommended no additional therapy. He was discharged home on 08/20/2018 with a prescription for Cefdinir 300 mg twice daily for 10 doses and a prednisone taper over the next 10 days. He will follow-up with Dr. Vitale in the office in 5-7 days. I reassured his that his blood sugars have been high because of the steroids and that his hemoglobin A1c is 6.1 so his diabetes is very well controlled as an outpatient. She was instructed that he will need to increase his fluid intake while on the Prednisone because the high blood sugars will make him urinate more. PHYSICAL EXAM: GENERAL: alert, oriented X 1, Cooperative, NAD, the head is atraumatic ORAL: moist mucosa, no mucosal lesions NECK: No JVD, supple, trachea midline LUNGS: Scattered mild expiratory wheezing with no rales. There is symmetric chest expansion. He has no tachypnea and no conversational dyspnea. HEART: RRR, Normal S1 and S2, no rub, no gallop ABDOMEN: soft, NT, ND, BS present, no guarding with palpation EXTREMITIES: no edema, no cyanosis, no calf tenderness SKIN: No rashes, no breakdown NEUROLOGIC: no focal neurologic deficits, able to follow commands but is confused and confabulating. PSYCH: appropriate, normal affect, pleasant This note was generated with [employer] software. It may contain incorrect words, spelling, and punctuation that were not noted in checking the note before signing. Patient Problems: Active and Suspected Problems (Last Updated 08/18/18 @ 04:47 by Bowen Lechuga MD) Encephalopathy due to infection (Acute) Streptococcus pneumoniae infection (Acute) Post viral debility (Acute) Influenza A (Acute) Acute bronchitis (Acute) - Physical Exam Vital Signs Temp Pulse Resp BP Pulse Ox 97.2 F L 74 18 117/67 95 08/20/18 14:03 08/20/18 15:10 08/20/18 15:10 08/20/18 14:03 08/20/18 14:03 Oxygen Flow Rate (L/min) 2 Oxygen Delivery Method Room Air Weight: 220 lb 0.341 oz Body Mass Index (BMI) 31.6 Intake and Output for Last 24 Hours 08/18/18 08/19/18 08/20/18 23:59 23:59 23:59 Intake Total 510 / 510 1539 / 1539 654 / 654 Output Total 1125 / 1125 300 / 300 Balance 510 / 510 414 / 414 354 / 354 Microbiology Past 72 Hours 08/18/18 05:24 Gram Stain - Final Sputum, Expectorated/Coughed Respiratory Culture - Final Streptococcus group A 08/18/18 07:25 Respiratory Panel (PCR) - Final Mucosa - Nasopharyngeal Influenza A (Subtype H3) 08/18/18 00:45 Influenza Types A,B Direct FA (ABDIRAHMAN) - Final Mucosa - Nasopharyngeal POC Glucose 08/20/18 08/20/18 08/20/18 16:00 11:32 06:39 POC Glucose 208 H 168 H 107 08/19/18 21:57 POC Glucose 205 H Discharge Activity: - - Avoid exposure to any strong smells such as bleach, cleaning products, strong colognes or perfumes, paint fumes and smoke of any kind. Avoid sudden exposure to cold air because this can cause bronchospasm. You may want to cover your mouth when you go outside in the winter. Avoid exposure to anyone who is sick with a cough or sore throat. Call your doctor if you observe: Fever of 101 or Higher, Shortness of breath, Dizziness, Fainting spells, Chest pain, Calf discomfort Home Medications: Medications to take at Discharge Allopurinol 100 mg PO DAILY 01/07/15 Lovastatin 40 mg PO DAILY 01/07/15 Metformin HCl [Glucophage] 500 mg PO DAILY 01/07/15 Aspirin [Aspirin, Baby] 81 mg PO DAILY 08/17/18 Memantine HCl 10 mg PO BID 08/17/18 Cefdinir [Omnicef [equiv]] 300 mg PO Q12H #10 capsule 08/20/18 Guaifenesin [Mucinex] 1,200 mg PO BID #20 tablet 08/20/18 Prednisone 10 mg PO UD #30 tab 08/20/18 Following Prescrptions Were Given to Patient: Cefdinir [Omnicef [equiv]] 300 mg PO Q12H #10 capsule Prednisone 10 mg PO UD #30 tab Guaifenesin [Mucinex] 1,200 mg PO BID #20 tablet Primary Care Physician: Dallas Vitale DO [Primary Care Provider] - Please follow up with your Primary Care Physician in: 5-7 days Disposition: Home Minutes spent on discharge:: 30 Patient Condition:: Good Medical Necessity - Tobacco Use Smoking Status: Never smoker Meaningful Use Info Meaningful Use Diagnoses (Choose all that apply): None applicable Code Visit Inpatient E&M: 54347 Disch Hosp
--- NOTE | 2018-08-20 17:06 | DS.PCM_ITS ---
Discharge Date and Diagnosis - Problem List Patient Problems: Active and Suspected Problems (Last Updated 08/18/18 @ 04:47 by Bowen Lechuga MD) Encephalopathy due to infection (Acute) Streptococcus pneumoniae infection (Acute) Post viral debility (Acute) Influenza A (Acute) Acute bronchitis (Acute) Date of Admission: 08/18/18 Date of Discharge: 08/20/18 - Primary Discharge Diagnosis Active and Suspected Problems (Last Updated 08/18/18 @ 04:47 by Bowen Lechuga MD) Streptococcus pneumoniae infection (Acute) - bronchitis Influenza A (Acute) Acute bronchitis (Acute) Encephalopathy due to infection (Acute) Post viral debility (Acute) - Secondary Discharge Diagnosis Dementia Diabetes mellitus type 2 Obstructive sleep apnea-noncompliant with CPAP BPH Status post uvulopalatoplasty Gout Hypertension Hospital Course and Treatment Imaging Results: Clinical Impression(s) from Imaging Studies Chest X-Ray 08/18/18 00:47 IMPRESSION: Degenerative changes, as described above. No demonstrated acute cardiopulmonary process. Electronically Signed: Ryan Abreu MD at 1:38 EST Tel , Service support , Chest CTA 08/18/18 00:56 IMPRESSION: No demonstrated pulmonary embolism, aortic aneurysm, or aortic dissection. COPD. Bronchiectasis. Bronchial wall thickening, most prominent in the right upper lobe, may represent an infectious or inflammatory bronchitis. Atherosclerosis. Mild right hilar lymphadenopathy. Electronically Signed: Bro Fuentes MD at 2:47 EST , Service support , Brain CT 08/18/18 00:59 IMPRESSION: Chronic involutional changes of the brain. No demonstrated acute intracranial process. Mild bilateral acute maxillary sinusitis, overlying more extensive chronic sinus disease. Electronically Signed: Bro Fuentes MD at 2:28 EST , Service support , none Operations: None Procedures: None Summary of Care Provided: Patient is a 72-year-old male with a past medical history of dementia, hypertension, diabetes mellitus II, gout, BPH and obstructive sleep apnea (noncompliant with CPAP) who presented to the emergency department at [facility] on 08/18/2018 with cough and increased confusion. His stated he had a runny nose and had chills at home and that the sx had been present for about a week. He was getting progressively weaker over the few days preceding admission to the hospital. He was afebrile in the emergency room with a blood pressure of 161/80, respiratory rate of 20 and a pulse ox of 90-94% on room air. White blood cell count was elevated at 13.8 with 80% neutrophils. Sodium was mildly decreased at 135. Lactic acid was 1.0 and a UA was negative for evidence of urinary tract infection. Influenza swab in the emergency department was negative. Respiratory was positive for Influenza A He had already had SX for a week and Tamiflu was not indicated. He was admitted to the hospital and started on Steroids and aerosolized bronchodilators for acute bronchitis with Bronchospasm. He was also started on Levaquin by the admitting physician. A sputum was sent for culture and it was positive for group A strep. The antibiotic was changed to Rocephin. He was seen by PT and OT in the hospital and on 08/20/18 he was ambulated in the halls and did well. Physical therapy recommended no additional therapy. He was discharged home on 08/20/2018 with a prescription for Cefdinir 300 mg twice daily for 10 doses and a prednisone taper over the next 10 days. He will follow-up with Dr. Vitale in the office in 5-7 days. I reassured his that his blood sugars have been high because of the steroids and that his h emoglobin A1c is 6.1 so his diabetes is very well controlled as an outpatient. She was instructed that he will need to increase his fluid intake while on the Prednisone because the high blood sugars will make him urinate more. PHYSICAL EXAM: GENERAL: alert, oriented X 1, Cooperative, NAD, the head is atraumatic ORAL: moist mucosa, no mucosal lesions NECK: No JVD, supple, trachea midline LUNGS: Scattered mild expiratory wheezing with no rales. There is symmetric chest expansion. He has no tachypnea and no conversational dyspnea. HEART: RRR, Normal S1 and S2, no rub, no gallop ABDOMEN: soft, NT, ND, BS present, no guarding with palpation EXTREMITIES: no edema, no cyanosis, no calf tenderness SKIN: No rashes, no breakdown NEUROLOGIC: no focal neurologic deficits, able to follow commands but is confused and confabulating. PSYCH: appropriate, normal affect, pleasant This note was generated with [employer] dictation software. It may contain incorrect words, spelling, and punctuation that were not noted in checking the note before signing. Patient Problems: Active and Suspected Problems (Last Updated 08/18/18 @ 04:47 by Bowen Lechuga MD) Encephalopathy due to infection (Acute) Streptococcus pneumoniae infection (Acute) Post viral debility (Acute) Influenza A (Acute) Acute bronchitis (Acute) - Physical Exam Vital Signs Temp Pulse Resp BP Pulse Ox 97.2 F L 74 18 117/67 95 08/20/18 14:03 08/20/18 15:10 08/20/18 15:10 08/20/18 14:03 08/20/18 14:03 Oxygen Flow Rate (L/min) 2 Oxygen Delivery Method Room Air Weight: 220 lb 0.341 oz Body Mass Index (BMI) 31.6 Intake and Output for Last 24 Hours 08/18/18 08/19/18 08/20/18 23:59 23:59 23:59 Intake Total 510 / 510 1539 / 1539 654 / 654 Output Total 1125 / 1125 300 / 300 Balance 510 / 510 414 / 414 354 / 354 Microbiology Past 72 Hours 08/18/18 05:24 Gram Stain - Final Sputum, Expectorated/Coughed Respiratory Culture - Final Streptococcus group A 08/18/18 07:25 Respiratory Panel (PCR) - Final Mucosa - Nasopharyngeal Influenza A (Subtype H3) 08/18/18 00:45 Influenza Types A,B Direct FA (ABDIRAHMAN) - Final Mucosa - Nasopharyngeal POC Glucose 08/20/18 08/20/18 08/20/18 16:00 11:32 06:39 POC Glucose 208 H 168 H 107 08/19/18 21:57 POC Glucose 205 H Discharge Activity: - - Avoid exposure to any strong smells such as bleach, cleaning products, strong colognes or perfumes, paint fumes and smoke of any kind. Avoid sudden exposure to cold air because this can cause bronchospasm. You may want to cover your mouth when you go outside in the winter. Avoid exposure to anyone who is sick with a cough or sore throat. Call your doctor if you observe: Fever of 101 or Higher, Shortness of breath, Dizziness, Fainting spells, Chest pain, Calf discomfort Home Medications: Medications to take at Discharge Allopurinol 100 mg PO DAILY 01/07/15 Lovastatin 40 mg PO DAILY 01/07/15 Metformin HCl [Glucophage] 500 mg PO DAILY 01/07/15 Aspirin [Aspirin, Baby] 81 mg PO DAILY 08/17/18 Memantine HCl 10 mg PO BID 08/17/18 Cefdinir [Omnicef [equiv]] 300 mg PO Q12H #10 capsule 08/20/18 Guaifenesin [Mucinex] 1,200 mg PO BID #20 tablet 08/20/18 Prednisone 10 mg PO UD #30 tab 08/20/18 Following Prescrptions Were Given to Patient: Cefdinir [Omnicef [equiv]] 300 mg PO Q12H #10 capsule Prednisone 10 mg PO UD #30 tab Guaifenesin [Mucinex] 1,200 mg PO BID #20 tablet Primary Care Physician: Dallas Vitale DO [Primary Care Provider] - Please follow up with your Primary Care Physician in: 5-7 days Disposition: Home Minutes spent on discharge:: 30 Patient Condition:: Good Medical Necessity - Tobacco Use Smoking Status: Never smoker Meaningful Use Info Meaningful Use Diagnoses (Choose all that apply): None applicable Code Visit Inpatient E&M: 99089 Disch Hosp
== END 2018-08-20 17:31 | disposition home or self-care (01) | DRG 193 ==
LOC: ED 08-18 02:18 → MS3 08-18 04:04
PROVIDERS: Admitting Provider Hospitalist; Emergency Provider Emergency Medicine; Family Provider Family Medicine; PCP Family Medicine; Visit Provider Internal Medicine
DX: J10.1 Influenza due to other identified influenza virus with other respiratory manifestations (principal); J96.01 Acute respiratory failure with hypoxia; E87.1 Hypo-osmolality and hyponatremia; G93.40 Encephalopathy, unspecified; J47.0 Bronchiectasis with acute lower respiratory infection; J20.2 Acute bronchitis due to streptococcus; G47.33 Obstructive sleep apnea (adult) (pediatric); M10.9 Gout, unspecified; R32 Unspecified urinary incontinence; E11.9 Type 2 diabetes mellitus without complications; F03.90 Unspecified dementia, unspecified severity, without behavioral disturbance, psychotic disturbance, mood disturbance, and anxiety; N40.0 Benign prostatic hyperplasia without lower urinary tract symptoms; I10 Essential (primary) hypertension; R53.81 Other malaise; R53.1 Weakness; Z91.19 Patient's noncompliance with other medical treatment and regimen; Z79.84 Long term (current) use of oral hypoglycemic drugs; Z79.899 Other long term (current) drug therapy
CPT/HCPCS: 36415; 70450; 71046; 71275; 80048; 81001; 82962; 83036; 83605; 83735; 84100; 85025; 87070; 87077; 87205; 87633; 87804; 94640; 94667; 94668; 97110; 97116; 97162; 97165; 97530; 97802; 99285; J7040; J7050; P9612; Q9967; A4216

== ENCOUNTER 2018-09-03 15:36 | Emergency (ER) | payer MEDICARE, OTHER, SELFPAY ==
[2018-08-18 04:57] VITALS: BMI 31.6
[2018-09-03 15:37] VITALS: BP 145/82; PULSE 77; RESP 16; TEMP 36.4; O2SAT 94; BMI 32.8
[2018-09-03 16:11] LABS: Bedside Glucose 107 mg/dL (70-110)
--- NOTE | 2018-09-03 16:22 | CT_ITS ---
STUDY: CT BRAIN WITHOUT CONTRAST REASON FOR EXAM: Male, 72 years old. Altered mental status. RADIATION DOSAGE (If Supplied By Facility): CTDIvol = ( 44.99 ) mGy, DLP = ( 796.11 ) mGycm TECHNIQUE: Transaxial CT imaging of the brain was performed without administration of intravenous contrast material. Individualized dose optimization techniques were used for this CT. COMPARISON: August 18, 2018. FINDINGS: Normal soft tissue structures. Normal calvarium. There is mild cerebral atrophy with widening of the extra-axial spaces and ventricular dilatation. There are areas of decreased attenuation within the white matter tracts of the supratentorial brain, consistent with microvascular disease changes. Normal basal ganglia and thalami. Normal brainstem. Normal cerebellum. There is no intracranial hemorrhage. There are no findings of an acute ischemic infarction. There is persistent left maxillary sinus. There is clearing of the remainder of the sinus disease seen on the prior study. CT/Brain/Head without Contrast IMPRESSION: 1. Chronic involutional changes without evidence of acute intracranial or calvarial abnormality. There is no major interval change. 2. Improving sinusitis. Electronically Signed: Gil Disla DO at 17:44 EST Tel [phone], Service support ,
--- NOTE | 2018-09-03 16:23 | EKG12_ITS ---
Test Reason : GEN ILLNESS Blood Pressure : / mmHG Vent. Rate : 067 BPM Atrial Rate : 067 BPM P-R Int : 178 ms QRS Dur : 088 ms QT Int : 382 ms P-R-T Axes : 001 027 047 degrees QTc Int : 403 ms Normal sinus rhythm Normal ECG Confirmed by GUZMAN NORTON, CARYN ([id number]), supervising editor news reel KAVITA CHUN ([id number]) on 09/08/2018 9:09:59 AM Referred By: DAVID Confirmed By:CARYN HINDS MD
[2018-09-03 16:31] VITALS: O2SAT 97
--- NOTE | 2018-09-03 16:32 | RAD_ITS ---
STUDY: X-RAY CHEST REASON FOR EXAM: Male, 72 years old. Chest pain. TECHNIQUE: Single AP portable view of the chest. COMPARISON: August 18, 2000 8T. FINDINGS: Telemetry wires overlie the chest. There is a mildly decreased inspiratory effort with minimal bibasilar atelectasis. There is no new infiltrate or mass. There is no demonstrated pleural abnormality. Stable borderline cardiomegaly. Normal mediastinum and norberto. Normal visualized pulmonary arteries. Normal visualized aortic arch and descending thoracic aorta. Stable dextroscoliosis and degenerative changes of the thoracic spine. There is degenerative osteoarthritis of the bilateral shoulders. There is no demonstrated abnormality of the visualized soft tissue structures of the upper abdomen. RAD/Chest 1 View (Portable) IMPRESSION: Diminished inspiratory effort with minimal bibasilar atelectasis. The study is otherwise unchanged. Electronically Signed: Gil Disla DO at 16:48 EST Tel [phone], Service support ,
[2018-09-03 16:36] LABS: Absolute Lymphocyte Count 1.97 X10^3/ul (0.83-4.51); Absolute Neutrophil Count 7.1 X10^3/uL (2.0-7.7); Basophil# 0.03 X10^3/uL; Basophil% 0.3 % (0-1); Hematocrit 42.1 % (40-54); Hemoglobin 13.6 g/dl (13.0-16.5); Lymphocyte # 1.97 X10^3/ul (4.0); Lymphocyte % 19.3 % (19-41); Mean Corp Hgb Conc 32.3 g/gl (32-36); Mean Corpuscular Hgb 28.6 pg (27.0-32.0); Mean Corpuscular Volume 88.4 fL (80-94); Mean Platelet Vol. 10.3 fl (6.2-12.0); Monocyte# 0.94 X10^3/uL; Monocyte% 9.2 % (0-10); Neutrophil # 7.13 X10^3/uL (2.7-7.7); Neutrophil % 69.7 % (47-70); Platelet Count 247 K/mm3 (150-450); RBC Distribution Width CV 14.1 % (11.6-14.6); RBC Distribution Width SD 44.9 fl (35.1-43.9); Red Blood Count 4.76 M/mm3 (4.6-6.2); White Blood Count 10.2 K/mm3 (4.4-11.0)
[2018-09-03 16:45] LABS: POSITIVE COUNT NO; POSITIVE DIFFERENTIAL NO; POSITIVE MORPHOLOGY NO
[2018-09-03 16:48] LABS: Anion Gap 7 (5-15); BUN 23 mg/dL (7-18); Calcium,Total 8.9 mg/dL (8.5-10.1); Chloride 110 mmol/L (98-107); Creatinine, Serum 1.15 mg/dL (0.70-1.30); EST Glomerular Filtration Rate 66 mL/min (>60); Est Glom Filt Rate - Afr Amer 80 mL/min (>60); Estimated Creatinine Clearance 59.07 ml/min; Glucose 126 mg/dL (74-106); Sodium Level 141 mmol/L (136-145)
[2018-09-03 17:24] LABS: Bacteria 0 SEEN /hpf (None Seen); Mucous, Urine 0 SEEN /hpf (<or=2+); Red Blood Cells-Urine 0 SEEN /hpf (0-5); Squamous Epithelial Cells - UA 0 SEEN /hpf (0-5); White Blood Cells 0 SEEN /hpf (0-5)
[2018-09-03 17:29] LABS: Color, Urine Yellow (Yellow); Glucose, Dipstick Normal (Normal); Ketone-Dipstick Negative (Negative); Leukocyte Esterase-Dipstick 25 /ul (Negative); Nitrite-Dipstick Negative (Negative); Occult Blood-Urine Negative /ul (Negative); Protein-Dipstick Negative (Negative); Specific Gravity, Urine 1.015 (1.002-1.030); Urine Bilirubin Dipstick Negative (Negative); Urine Clarity Clear (Clear); Urine Urobilinogen 1 mg/dl (Normal); Urine pH 6.5 (5.0 - 8.0)
[2018-09-03 17:38] VITALS: BP 144/89; PULSE 72; RESP 16; O2SAT 97
--- NOTE | 2018-09-03 18:40 | ED.VISSUMM ---
- ER Visit Summary Date of Service: 09/03/18 Chief Complaint: Feels strange History of Present Illness: The patient is a 72 M who told his today that he feels strange. He was admitted about 2 weeks ago for URI and bronchitis. He was treated with antibiotics and a mucus medication which she completed several days ago. He just completed prednisone 2 days ago. Yesterday he was feeling well, but today he was acting strange per his family. He seemed out of character and had to lay down. No slurred speech or incoherent words. No facial droop. No vision changes. No weakness or numbness. No chest pain or any pains at all. No trouble breathing. He has had a lingering cough. He has a history of sleep apnea and is noncompliant with his treatment. Also history of dementia, diabetes, hypertension, BPH, and gout. Physical Examination: Afebrile and vital signs unremarkable. 94% on room air. Patient is alert and oriented. No acute distress. Cranial nerves grossly intact. Normal strength sensation. Normal cerebellar testing. Heart regular. Lungs clear. Abdomen soft and nontender. Extremities nontender. Test Results: EKG showed sinus rhythm at a rate of 67. No sign of acute ischemia or infarction pattern. CBC normal. Chloride 110, glucose 126, BUN 23. Urinalysis unremarkable. Troponin normal. Chest x-ray showed decreased inspiratory effort but was otherwise unremarkable. CT brain showed chronic changes and improving sinusitis. Emergency Department Course and Treatment: Patient has nonspecific symptoms, but he is elderly and had a recent admission. I did check a workup as above. Everything looks fairly unremarkable. He had no new or further symptoms during his stay in the emergency department. He is not having signs of stroke, encephalitis. No signs of sepsis or infection. No other concerning symptoms. His symptoms may be from his recent admission to the hospital or possibly the medications he was on including prednisone. I believe it is the safest course of action for him to be discharged. He is currently alert and oriented. No complaints. Family says he is acting appropriately. They will monitor for new or worsening issues. Follow-up with primary care. Return right away for any problems. Treatment Plan: As above Disposition: Discharge Impression: 1. Altered mental status resolved This note was generated with [employer].com[employer] software. It may contain incorrect words, spelling, and punctuation that were not noted in review of the chart prior to signing ED Disposition - Plan for ED Patient: Chief Complaint: General Illness Referrals: Dallas Vitale DO [Primary Care Provider] -
--- NOTE | 2018-09-03 18:43 | ED.DEP ---
ED Disposition - Plan for ED Patient: Chief Complaint: General Illness Instructions: ED Altered Loc Referrals: Dallas Vitale DO [Primary Care Provider] -
[2018-09-03 18:58] VITALS: BP 154/87; PULSE 69; RESP 18; O2SAT 93
--- OUTSIDE RECORDS SUMMARY | 2018-11-08 16:39 | XMS RPT_ITS ---
:1945 Author Organization OHIP Care Team Providers Name Role Phone Dallas Vitale Primary Care Unavailable Magdiel Lau Attending Unavailable Dallas Vitale Attending Unavailable Dallas Vitale Primary Care Unavailable Dallas Vitale Primary Care Unavailable Nhan Wong Attending Unavailable Bowen Lechuga Admitting Unavailable SemenStarla yousif Attending Unavailable Dallas Vitale Primary Care Unavailable Starla Raymond Consulting Unavailable Bowen Lechuga Admitting Unavailable SemenStarla yousif Attending Unavailable Dallas Vitale Primary Care Unavailable Starla Raymond Consulting Unavailable Bowen Lechuga Admitting Unavailable Bowen Lechuga Attending Unavailable Dallas Vitale Primary Care Unavailable Bowen Lechuga Consulting Unavailable Dallas Vitale Primary Care Unavailable Bowen Lechuga Admitting Unavailable Starla Raymond Attending Unavailable PROBLEMS PROBLEMS DATE TYPE CONDITION / CODE ATTENDING STATUS SOURCE 08/22/2018 Unknown J96.01 - Acute Sementi, Active [place] respiratory [facility] Community failure with Hospital hypoxia / Repository J96.01(ICD-10) PROCEDURES PROCEDURES No Procedure Records FoundRESULTS RESULTS EMERGENCY DEPARTMENT Observed: 09/09/2018 Status: F Source: [place] SUMMARY 3:29 PM [facility] HOSPITAL REPOSITORY [facility] Medical Records Department [address] [place] [address] Emergency Department Summary 09/09/18 1522 MR#: [id number] Acct: [id number] Name: HUMAIRA BUSTAMANTE Rep #: [id number] : 1945 72 From: Nhan Wong MD PCP: Dallas Vitale DO Status: REG ER - ER Visit Summary Date of Service: 09/09/18 Chief Complaint: [] History of Present Illness: The patient is a 72 M [] Physical Examination: [] Test Results: [] Emergency Department Course and Treatment: [] Treatment Plan: [] Disposition: [] Impression: [] This note was generated with [employer].comation software. It may contain incorrect words, spelling, and punctuation that were not noted in review of the chart prior to signing ED Disposition - Plan for ED Patient: Disposition: Home or Assisted Living Chief Complaint: Fall Instructions: ED Dementia Caregiver Support Prescriptions: Haloperidol [Haldol] 2 mg PO QHS #60 tablet Referrals: Dallas Vitale DO [Primary Care Provider] - Keep Veronica appointment What to do if you have Problems For any increased pain, shortness of breath, bleeding, nausea or vomiting, chest pain, or any unexpected problems, contact your Primary Care Provider. Call [facility] ([phone]) or report to the closest Emergency Room. Call 911 if necessary. 09/09/18 1529 <Electronically signed by Nhan Wong MD> Date Nhan Wong MD Cosigner Signature (If Indicated): Date CC: Dallas Vitale DO EMERGENCY DEPARTMENT Observed: 09/09/2018 Status: F Source: [place] SUMMARY 3:17 PM [facility] [facility] Medical Records Department [address] [place] [address] Emergency Department Summary 09/09/18 1512 MR#: [id number] Acct: [id number] Name: HUMAIRA BUSTAMANTE Rep #: [id number] : 1945 72 From: Nhan Wong MD PCP: Dallas Vitale DO Status: REG ER - ER Visit Summary Date of Service: 09/09/18 Chief Complaint: brought patient because he complains of not feeling right. History of Present Illness: The patient is a 72 M Patient has history of dementia. He has had increased problems since admission for delirium secondary to influenza type A. He has voiced no other complaints other than he feels strange. He has not informed that he had chest pain, shortness of breath. has not noted him to be short of breath. He apparently fell off the commode yesterday onto his knees. There is no head trauma. There is no loss of conscious. Denies neck pain. He denies urologic symptoms. has not noted any abnormal movements or difficulty using one extremity versus another. She states she would like an answer. Physical Examination: Vital signs noted blood pressure is elevated. Head is atraumatic normocephalic. Pupils are equal round reactive. Extraocular muscles are intact. TMs are pearly white with landmarks noted. Nares patent with no drainage. Posterior pharynx without erythema or exudate. Uvula is midline. There is no dysphonia or dysphasia. Trachea is midline. There is no stridor with auscultation of the neck. Heart is regular without murmur, gallop or rub. S1 and S2 are normal. Lungs are clear to auscultation with good movement of air bilaterally. Abdomen is soft nontender. He is alert but not oriented. He is not demonstrating any agitation in the emergency department. and family were states he becomes agitated. He has not harmed his . She feels safe at home. Motor is 5/5. Sensations intact. DTRs symmetric no clonus or Babinski sign. Cranial 2 through 12 are intact. Test Results: Review of prior records for this month. CBC, basic metabolic panel and UA were obtained and are unremarkable. Emergency Department Course and Treatment: Metabolic/infectious workup was undertaken. He had a recent CAT scan during his September 03 visit. This was not repeated. He had a chest x-ray which was done and not repeated since he has no respiratory symptoms nor findings. Case management was consulted. Arrangements have been made for increased care at home Treatment Plan: Outpatient home health Disposition: Discharge to home with spouse and children Impression: Exacerbation of dementia This note was generated with [employer] dictation software. It may contain incorrect words, spelling, and punctuation that were not noted in review of the chart prior to signing ED Disposition - Plan for ED Patient: Disposition: Home or Assisted Living Chief Complaint: Fall Instructions: ED Dementia Caregiver Support Referrals: Dallas Vitale, DO [Primary Care Provider] - Keep Veronica appointment What to do if you have Problems For any increased pain, shortness of breath, bleeding, nausea or vomiting, chest pain, or any unexpected problems, contact your Primary Care Provider. Call [facility] ([phone]) or report to the closest Emergency Room. Call 911 if necessary. 09/09/18 1517 <Electronically signed by Nhan Wong MD> Date Nhan Wong MD Cosigner Signature (If Indicated): Date CC: Dallas Vitale DO URINALYSIS, COMPLETE Collected: 09/09/2018 Status: F Source: [place] 1:20 PM [facility] [place] Order Comment: How was Urine Obtained? MARKETING ASSISTANT TO SPECIFY TYPE CODE TESTS RESULT OUT OF RANGE REFERENCE UNITS LAB L400.3000 Yellow COLOR Normal Yellow LAB L400.3050 Clear Normal CLARITY Clear LAB L400.3200 Normal mg/dl Normal GLUCOSE, UR Normal LAB L400.3300 Negative mg/dL Normal BILIRUBIN URINE Negative LAB L400.3400 Negative mg/dl High 5 KETONE UR LAB L400.3465 1.002-1.030 Normal SP.GR. DIPSTX 1.005 LAB L400.3550 5.0 - 8.0 pH UR Normal 7.0 LAB L400.3600 Negative mg/dl PROT Normal DIPSTX Negative LAB L400.3700 Normal mg/dl Normal UROBILI Normal LAB L400.3750 Negative Normal NITRITE UR Negative LAB L400.3780 Negative /ul Normal OCCULT BLOOD-UR Negative LAB L400.3800 Negative /ul LEUK Normal ESTERASE Negative LAB L400.4050 0-5 /hpf WBC 0 Normal SEEN LAB L400.4100 0-5 /hpf 0 Normal RBC-UA SEEN LAB L400.4150 0-5 /hpf SQUAM 0 Normal EPI SEEN LAB L400.4300 None Seen /hpf 0 Normal BACTERIA SEEN LAB L400.4350 <or=2+ /hpf 0 Normal MUCUS, URINE SEEN Performed By: #### L400.0001 #### [facility] [address] [place], [place], [address] CBC W/DIFF, AUTOMATED Collected: 09/09/2018 Status: F Source: [place] 1:05 PM [facility] [place] TYPE CODE TESTS RESULT OUT OF RANGE REFERENCE UNITS LAB L100.1000 4.4-11.0 K/mm3 Normal WBC 7.0 LAB L100.1200 4.6-6.2 M/mm3 Normal RBC 4.68 LAB L100.1300 13.0-16.5 g/dl Normal HGB 13.2 LAB L100.1400 40-54 % Normal HCT 40.8 LAB L100.1500 80-94 fL Normal MCV 87.2 LAB L100.1600 27.0-32.0 pg Normal MCH 28.2 LAB L100.1700 32-36 g/gl Normal MCHC 32.4 LAB L100.1810 11.6-14.6 % Normal RDW CV 14.1 LAB L100.1820 35.1-43.9 fl Normal RDW SD 43.9 LAB L100.1900 150-450 K/mm3 Normal PLT 167 LAB L100.2000 6.2-12.0 fl Normal MPV 9.9 LAB L100.2100 47-70 % Normal NEUT% 59.5 LAB L100.2200 19-41 % Normal LY% 27.0 LAB L100.2300 0-10 % High MONO% 11.0 LAB L100.2400 0-5 % Normal EO% 1.9 LAB L100.2500 0-1 % Normal BASO% 0.3 LAB L100.2550 0.0-0.9 % Normal IM GRAN % 0.300 Result Comment: IG% - Immature Granulocytes (promyelocytes, myelocytes and metamyelocytes) > 1% indicates that a LEFT SHIFT is Present. LAB L100.2620 2.0-7.7 X10 3/uL Normal Absolute Neut 4.2 LAB L100.2720 0.83-4.51 X10 3/ul Normal Absolute Lymph 1.89 Performed By: #### L100.0100 #### [facility] [address] [place], [place], [address] BASIC METABOLIC Collected: 09/09/2018 Status: F Source: [place] PROFILE (BMP) 1:05 PM [facility] TYPE CODE TESTS RESULT OUT OF RANGE REFERENCE UNITS LAB L501.0100 74-106 mg/dL Normal GLU 85 Result Comment: Please note revised GLUCOSE reference range effective 2017. LAB L501.1000 7-18 mg/dL Normal BUN 13 LAB L501.1100 0.70-1.30 mg/dL Normal CREAT,SERUM 0.91 Result Comment: The validity of the calculated GFR AND GFRAA in patients over 70 years has not been determined. Clinical correlation is essential. LAB L501.1110 >60 mL/min Normal EST GFR 87 Result Comment: Non- GFR Calc LAB L501.1115 >60 mL/min Normal EST GFR - AA 105 Result Comment: GFR Calc LAB L501.1255 ml/min Normal Estimated CRCL 74.65 LAB L501.1300 10-20 RATIO Normal BUN/CRE 14.3 LAB L501.2200 8.5-10 mg/dL Normal .1 CA 8.9 LAB L501.5300 136-14 mmol/L Normal 5 NA 141 LAB L501.5600 3.5-5. mmol/L Normal 1 K 3.8 LAB L501.5900 98-107 mmol/L High CL 108 LAB L501.6100 21.0-3 mmol/L Normal 2.0 CO2 26.0 LAB L501.6200 5-15 Normal GAP 7 Performed By: #### L500.2500 #### [facility] [address] [place], [address] 12 LEAD ELECTROCARDIOGRAM Observed: 09/08/2018 Status: F Source: [place] 9:10 AM [facility] [place] [facility] Cardiovascular Services [address] [place] [address] 12 Lead EKG 09/03/18 1629 MR#: [id number] Acct: [id number] Name: HUMAIRA BUSTAMANTE Rep #: [id number] : 1945 72 From: Danielito Foley MD Attending Dr: Status: DEP ER Ordering Dr: Magdiel Lau MD Date: 09/03/18 Location: ED Sex: M C Admitted: Test Reason : GEN ILLNESS Blood Pressure : / mmHG Vent. Rate : 067 BPM Atrial Rate : 067 BPM P-R Int : 178 ms QRS Dur : 088 ms QT Int : 382 ms P-R-T Axes : 001 027 047 degrees QTc Int : 403 ms Normal sinus rhythm Normal ECG Confirmed by DANIELITO FOLEY MD ([id number]), food editor KAVITA CHUN ([id number]) on 09/08/2018 9:09:59 AM Referred By: DAVID Confirmed By:DANIELITO FOLEY MD 09/08/18 0910 Date Danielito Foley MD CC: Magdiel Lau MD; Dallas Vitale DO Signed EMERGENCY DEPARTMENT Observed: 09/03/2018 Status: F Source: [place] SUMMARY 11:50 PM [facility] [place] [facility] Medical Records Department [address] [place] [address] Emergency Department Summary 09/03/18 1840 MR#: [id number] Acct: [id number] Name: HUMAIRA BUSTAMANTE Rep #: [id number] : 1945 72 From: Magdiel Lau MD PCP: Dallas Vitale DO Status: DEP ER - ER Visit Summary Date of Service: 09/03/18 Chief Complaint: Feels strange History of Present Illness: The patient is a 72 M who told his today that he feels strange. He was admitted about 2 weeks ago for URI and bronchitis. He was treated with antibiotics and a mucus medication which she completed several days ago. He just completed prednisone 2 days ago. Yesterday he was feeling well, but today he was acting strange per his family. He seemed out of character and had to lay down. No slurred speech or incoherent words. No facial droop. No vision changes. No weakness or numbness. No chest pain or any pains at all. No trouble breathing. He has had a lingering cough. He has a history of sleep apnea and is noncompliant with his treatment. Also history of dementia, diabetes, hypertension, BPH, and gout. Physical Examination: Afebrile and vital signs unremarkable. 94% on room air. Patient is alert and oriented. No acute distress. Cranial nerves grossly intact. Normal strength sensation. Normal cerebellar testing. Heart regular. Lungs clear. Abdomen soft and nontender. Extremities nontender. Test Results: EKG showed sinus rhythm at a rate of 67. No sign of acute ischemia or infarction pattern. CBC normal. Chloride 110, glucose 126, BUN 23. Urinalysis unremarkable. Troponin normal. Chest x-ray showed decreased inspiratory effort but was otherwise unremarkable. CT brain showed chronic changes and improving sinusitis. Emergency Department Course and Treatment: Patient has nonspecific symptoms, but he is elderly and had a recent admission. I did check a workup as above. Everything looks fairly unremarkable. He had no new or further symptoms during his stay in the emergency department. He is not having signs of stroke, encephalitis. No signs of sepsis or infection. No other concerning symptoms. His symptoms may be from his recent admission to the hospital or possibly the medications he was on including prednisone. I believe it is the safest course of action for him to be discharged. He is currently alert and oriented. No complaints. Family says he is acting appropriately. They will monitor for new or worsening issues. Follow-up with primary care. Return right away for any problems. Treatment Plan: As above Disposition: Discharge Impression: 1. Altered mental status resolved This note was generated with [employer]comation software. It may contain incorrect words, spelling, and punctuation that were not noted in review of the chart prior to signing ED Disposition - Plan for ED Patient: Chief Complaint: General Illness Referrals: Dallas Vitale DO [Primary Care Provider] - What to do if you have Problems For any increased pain, shortness of breath, bleeding, nausea or vomiting, chest pain, or any unexpected problems, contact your Primary Care Provider. Call [facility] ([phone]) or report to the closest Emergency Room. Call 911 if necessary. 09/03/182349 <Electronically signed by Magdiel Lau MD> Date Magdiel Stevensigner Signature (If Indicated): Date CC: Dallas Vitale DO DISCHARGE INSTRUCTION Observed: 09/03/2018 Status: F Source: [place] 11:50 PM [facility] [place] [facility] Medical Records Department [address] [place] [address] Discharge Instruction 09/03/18 1843 MR#: [id number] Acct: [id number] Name: HUMAIRA BUSTAMANTE Dunia Rep #: [id number] : 1945 72 From: Magdiel Lau MD PCP: Dallas Vitale DO Status: DEP ER ED Disposition - Plan for ED Patient: Chief Complaint: General Illness Instructions: ED Altered Loc Referrals: Dallas Vitale DO [Primary Care Provider] - What to do if you have Problems For any increased pain, shortness of breath, bleeding, nausea or vomiting, chest pain, or any unexpected problems, contact your Primary Care Provider. Call [facility] ([phone]) or report to the closest Emergency Room. Call 911 if necessary. 09/03/182349 <Electronically signed by Magdiel Lau MD> Date Magdiel Martinoer Signature (If Indicated): Date CC: Dallas Vitale DO URINALYSIS, COMPLETE Collected: 09/03/2018 Status: F Source: [place] 5:10 PM [facility] [place] Order Comment: Order Date: 09/03/18 How was Urine Obtained? MARKETING ASSISTANT TO SPECIFY TYPE CODE TESTS RESULT OUT OF RANGE REFERENCE UNITS LAB L400.3000 Yellow COLOR Normal Yellow LAB L400.3050 Clear Normal CLARITY Clear LAB L400.3200 Normal mg/dl Normal GLUCOSE, UR Normal LAB L400.3300 Negative mg/dL Normal BILIRUBIN URINE Negative LAB L400.3400 Negative mg/dl Normal KETONE UR Negative LAB L400.3465 1.002-1.030 Normal SP.GR. DIPSTX 1.015 LAB L400.3550 5.0 - 8.0 pH UR Normal 6.5 LAB L400.3600 Negative mg/dl PROT Normal DIPSTX Negative LAB L400.3700 Normal mg/dl High 1 UROBILI LAB L400.3750 Negative Normal NITRITE UR Negative LAB L400.3780 Negative /ul Normal OCCULT BLOOD-UR Negative LAB L400.3800 Negative /ul High LEUK 25 ESTERASE LAB L400.4050 0-5 /hpf WBC 0 Normal SEEN LAB L400.4100 0-5 /hpf 0 Normal RBC-UA SEEN LAB L400.4150 0-5 /hpf SQUAM 0 Normal EPI SEEN LAB L400.4300 None Seen /hpf 0 Normal BACTERIA SEEN LAB L400.4350 <or=2+ /hpf 0 Normal MUCUS, URINE SEEN Performed By: #### L400.0001 #### [facility] [address] [facility] [place], [place], [id number] CHEST 1 VIEW Observed: 09/03/2018 Status: F Source: [place] (PORTABLE) 4:24 PM [facility] [place] [facility] Imaging Services [address] [place] [address] Chest 1 View (Portable) MR#: [id number] Acct: [id number] Name: HUMAIRA BUSTAMANTE Rep #: [id number] : 1945 M 72 From: Gil Disla DO PCP: Dallas Vitale DO Status: PRE ER Study: Chest 1 View (Portable) Date of Exam: 09/03/18 Exam# [id number] Ordering Dr: Magdiel Lau MD STUDY: X-RAY CHEST REASON FOR EXAM: Male, 72 years old. Chest pain. TECHNIQUE: Single AP portable view of the chest. COMPARISON: August 18, 2000 8T. FINDINGS: Telemetry wires overlie the chest. There is a mildly decreased inspiratory effort with minimal bibasilar atelectasis. There is no new infiltrate or mass. There is no demonstrated pleural abnormality. Stable borderline cardiomegaly. Normal mediastinum and norberto. Normal visualized pulmonary arteries. Normal visualized aortic arch and descending thoracic aorta. Stable dextroscoliosis and degenerative changes of the thoracic spine. There is degenerative osteoarthritis of the bilateral shoulders. There is no demonstrated abnormality of the visualized soft tissue structures of the upper abdomen. RAD/Chest 1 View (Portable) IMPRESSION: Diminished inspiratory effort with minimal bibasilar atelectasis. The study is otherwise unchanged. Electronically Signed: Gil Disla DO at 16:48 EST Tel [phone], Service support , CC: Magdiel Lau MD; Dallas Vitale DO Senior Regulatory Affairs Specialist: Signed BRAIN/HEAD WITHOUT Observed: 09/03/2018 Status: F Source: [place] CONTRAST 4:24 PM [facility] [place] [facility] Imaging Services [address] [place] [address] Brain/Head without Contrast MR#: [id number] Acct: [id number] Name: HUMAIRA BUSTAMANTE Rep #: [id number] : 1945 M 72 From: Gil Disla DO PCP: Dallas Vitale DO Status: REG ER Study: Brain/Head without Contrast Date of Exam: 09/03/18 Exam# [id number] Ordering Dr: Magdiel Lau MD STUDY: CT BRAIN WITHOUT CONTRAST REASON FOR EXAM: Male, 72 years old. Altered mental status. RADIATION DOSAGE (If Supplied By Facility): CTDIvol = ( 44.99 ) mGy, DLP = ( 796.11 ) mGycm TECHNIQUE: Transaxial CT imaging of the brain was performed without administration of intravenous contrast material. Individualized dose optimization techniques were used for this CT. COMPARISON: August 18, 2018. FINDINGS: Normal soft tissue structures. Normal calvarium. There is mild cerebral atrophy with widening of the extra- axial spaces and ventricular dilatation. There are areas of decreased attenuation within the white matter tracts of the supratentorial brain, consistent with microvascular disease changes. Normal basal ganglia and thalami. Normal brainstem. Normal cerebellum. There is no intracranial hemorrhage. There are no findings of an acute ischemic infarction. There is persistent left maxillary sinus. There is clearing of the remainder of the sinus disease seen on the prior study. CT/Brain/Head without Contrast IMPRESSION: 1. Chronic involutional changes without evidence of acute intracranial or calvarial abnormality. There is no major interval change. 2. Improving sinusitis. Electronically Signed: Gil Disla DO at 17:44 EST Tel [phone], Service support , CC: Magdiel Lau MD; Dallas Vitale DO Senior Regulatory Affairs Specialist: Signed BEDSIDE GLUCOSE Collected: 09/03/2018 Status: F Source: [place] 3:56 PM [facility] [place] TYPE CODE TESTS RESULT OUT OF RANGE REFERENCE UNITS LAB L501.080 70-110 mg/dL Normal BEDSIDE GLU 107 Result Comment: MANAGEMENT OF PATIENT CARE PER NURSING PROTOCOL Performed By: #### L501.080 #### [facility] Point of Care [address] [place] [address] CBC W/DIFF, AUTOMATED Collected: 09/03/2018 Status: F Source: [place] 3:46 PM [facility] [place] TYPE CODE TESTS RESULT OUT OF RANGE REFERENCE UNITS LAB L100.1000 4.4-11.0 K/mm3 Normal WBC 10.2 LAB L100.1200 4.6-6.2 M/mm3 Normal RBC 4.76 LAB L100.1300 13.0-16.5 g/dl Normal HGB 13.6 LAB L100.1400 40-54 % Normal HCT 42.1 LAB L100.1500 80-94 fL Normal MCV 88.4 LAB L100.1600 27.0-32.0 pg Normal MCH 28.6 LAB L100.1700 32-36 g/gl Normal MCHC 32.3 LAB L100.1810 11.6-14.6 % Normal RDW CV 14.1 LAB L100.1820 35.1-43.9 fl High RDW SD 44.9 LAB L100.1900 150-450 K/mm3 Normal PLT 247 LAB L100.2000 6.2-12.0 fl Normal MPV 10.3 LAB L100.2100 47-70 % Normal NEUT% 69.7 LAB L100.2200 19-41 % Normal LY% 19.3 LAB L100.2300 0-10 % Normal MONO% 9.2 LAB L100.2400 0-5 % Normal EO% 1.0 LAB L100.2500 0-1 % Normal BASO% 0.3 LAB L100.2550 0.0-0.9 % Normal IM GRAN % 0.500 Result Comment: IG% - Immature Granulocytes (promyelocytes, myelocytes and metamyelocytes) > 1% indicates that a LEFT SHIFT is Present. LAB L100.2620 2.0-7.7 X10 3/uL Normal Absolute Neut 7.1 LAB L100.2720 0.83-4.51 X10 3/ul Normal Absolute Lymph 1.97 Performed By: #### L100.0100 #### [facility] [place], [address] BASIC METABOLIC Collected: 09/03/2018 Status: F Source: [place] PROFILE (BMP) 3:46 PM [facility] [place] TYPE CODE TESTS RESULT OUT OF RANGE REFERENCE UNITS LAB L501.0100 74-106 mg/dL High GLU 126 Result Comment: Fasting Glucose result greater than or equal to 126 mg/dL suggests DIABETES MELLITUS per A.D.A. criteria. Please note revised GLUCOSE reference range effective 2017. LAB L501.1000 7-18 mg/dL High BUN 23 LAB L501.1100 0.70-1.30 mg/dL Normal CREAT,SERUM 1.15 Result Comment: The validity of the calculated GFR AND GFRAA in patients over 70 years has not been determined. Clinical correlation is essential. LAB L501.1110 >60 mL/min Normal EST GFR 66 Result Comment: Non- GFR Calc LAB L501.1115 >60 mL/min Normal EST GFR - AA 80 Result Comment: GFR Calc LAB L501.1255 ml/min Normal Estimated CRCL 59.07 LAB L501.1300 10-20 RATIO Normal BUN/CRE 20.0 LAB L501.2200 8.5-10 mg/dL Normal .1 CA 8.9 LAB L501.5300 136-14 mmol/L Normal 5 NA 141 LAB L501.5600 3.5-5. mmol/L Normal 1 K 4.0 LAB L501.5900 98-107 mmol/L High CL 110 LAB L501.6100 21.0-3 mmol/L Normal 2.0 CO2 24.0 LAB L501.6200 5-15 Normal GAP 7 Performed By: #### L500.2500, L501.4010 #### [facility] [address] [place], [address] TROPONIN-I Collected: 09/03/2018 Status: F Source: [place] 3:46 PM [facility] TYPE CODE TESTS RESULT OUT OF RANGE REFERENCE UNITS LAB L501.4010 <0.045 ng/mL Normal < 0.015 TROPONIN-I Result Comment: TROPONIN-I EXPECTED VALUES <0.045 Negative 0.045 - 0.590 Consistent with Cardiac Damage > OR = 0.600 Critical Value Not every elevated troponin is indicative of AR. These values should be used with clinical judgement in examining the patient's clinical picture for diagnosis. To establish a diagnosis of AR versus myocardial injury, there must be a demonstrated rise and/or fall in the troponin values, in addition to ischemic symptoms, EKG changes, new regional wall motion abnormality, and/or angiographical evidence. PLEASE NOTE: REFERENCE RANGES EDITED 17 Performed By: #### L500.2500, L501.4010 #### [facility] [address] [place], [address] DISCHARGE SUMMARY Observed: 08/20/2018 Status: F Source: [place] 5:22 PM [facility] [place] Medical Records Department [address] [place] [address] Discharge Summary 08/20/18 1702 MR#: [id number] Acct: [id number] Name: HUMAIRA BUSTAMANTE Rep #: [id number] : 1945 72 From: Jesse Raymond DO PCP: Dallas Vitale DO Status: ADM IN Location: [facility] [place] [address] Discharge Date and Diagnosis - Problem List Patient Problems: Active and Suspected Problems (Last Updated 08/18/18 @ 04:47 by Bowen Lechuga MD) Encephalopathy due to infection (Acute) Streptococcus pneumoniae infection (Acute) Post viral debility (Acute) Influenza A (Acute) Acute bronchitis (Acute) Date of Admission: 08/18/18 Date of Discharge: 08/20/18 - Primary Discharge Diagnosis Active and Suspected Problems (Last Updated 08/18/18 @ 04:47 by Bowen Lechuga MD) Streptococcus pneumoniae infection (Acute) - bronchitis Influenza A (Acute) Acute bronchitis (Acute) Encephalopathy due to infection (Acute) Post viral debility (Acute) - Secondary Discharge Diagnosis Dementia Diabetes mellitus type 2 Obstructive sleep apnea-noncompliant with CPAP BPH Status post uvulopalatoplasty Gout Hypertension Hospital Course and Treatment Imaging Results: Clinical Impression(s) from Imaging Studies Chest X-Ray 08/18/18 00:47 IMPRESSION: Degenerative changes, as described above. No demonstrated acute cardiopulmonary process. Electronically Signed: Ryan Abreu MD at 1:38 EST Tel , Service support , Chest CTA 08/18/18 00:56 IMPRESSION: No demonstrated pulmonary embolism, aortic aneurysm, or aortic dissection. COPD. Bronchiectasis. Bronchial wall thickening, most prominent in the right upper lobe, may represent an infectious or inflammatory bronchitis. Atherosclerosis. Mild right hilar lymphadenopathy. Electronically Signed: Bro Fuentes MD at 2:47 EST , Service support , Brain CT 08/18/18 00:59 IMPRESSION: Chronic involutional changes of the brain. No demonstrated acute intracranial process. Mild bilateral acute maxillary sinusitis, overlying more extensive chronic sinus disease. Electronically Signed: Bro Fuentes MD at 2:28 EST , Service support , none Operations: None Procedures: None Summary of Care Provided: Patient is a 72-year-old male with a past medical history of dementia, hypertension, diabetes mellitus II, gout, BPH and obstructive sleep apnea (noncompliant with CPAP) who presented to the emergency department at [facility] on 08/18/2018 with cough and increased confusion. His stated he had a runny nose and had chills at home and that the sx had been present for about a week. He was getting progressively weaker over the few days preceding admission to the hospital. He was afebrile in the emergency room with a blood pressure of 161/80, respiratory rate of 20 and a pulse ox of 90-94% on room air. White blood cell count was elevated at 13.8 with 80% neutrophils. Sodium was mildly decreased at 135. Lactic acid was 1.0 and a UA was negative for evidence of urinary tract infection. Influenza swab in the emergency department was negative. Respiratory was positive for Influenza A He had already had SX for a week and Tamiflu was not indicated. He was admitted to the hospital and started on Steroids and aerosolized bronchodilators for acute bronchitis with Bronchospasm. He was also started on Levaquin by the admitting physician. A sputum was sent for culture and it was positive for group A strep. The antibiotic was changed to Rocephin. He was seen by PT and OT in the hospital and on 08/20/18 he was ambulated in the halls and did well. Physical therapy recommended no additional therapy. He was discharged home on 08/20/2018 with a prescription for Cefdinir 300 mg twice daily for 10 doses and a prednisone taper over the next 10 days. He will follow-up with Dr. Vitale in the office in 5-7 days. I reassured his that his blood sugars have been high because of the steroids and that his hemoglobin A1c is 6.1 so his diabetes is very well controlled as an outpatient. She was instructed that he will need to increase his fluid intake while on the Prednisone because the high blood sugars will make him urinate more. PHYSICAL EXAM: GENERAL: alert, oriented X 1, Cooperative, NAD, the head is atraumatic ORAL: moist mucosa, no mucosal lesions NECK: No JVD, supple, trachea midline LUNGS: Scattered mild expiratory wheezing with no rales. There is symmetric chest expansion. He has no tachypnea and no conversational dyspnea. HEART: RRR, Normal S1 and S2, no rub, no gallop ABDOMEN: soft, NT, ND, BS present, no guarding with palpation EXTREMITIES: no edema, no cyanosis, no calf tenderness SKIN: No rashes, no breakdown NEUROLOGIC: no focal neurologic deficits, able to follow commands but is confused and confabulating. PSYCH: appropriate, normal affect, pleasant This note was generated with [employer] dictation software. It may contain incorrect words, spelling, and punctuation that were not noted in checking the note before signing. Patient Problems: Active and Suspected Problems (Last Updated 08/18/18 @ 04:47 by Bowen Lechuga MD) Encephalopathy due to infection (Acute) Streptococcus pneumoniae infection (Acute) Post viral debility (Acute) Influenza A (Acute) Acute bronchitis (Acute) - Physical Exam Vital Signs Temp Pulse Resp BP Pulse Ox 97.2 F L 74 18 117/67 95 08/20/18 14:03 08/20/18 15:10 08/20/18 15:10 08/20/18 14:03 08/20/18 14:03 Oxygen Flow Rate (L/min) 2 Oxygen Delivery Method Room Air Weight: 220 lb 0.341 oz Body Mass Index (BMI) 31.6 Intake and Output for Last 24 Hours Intake Total 510 / 510 1539 / 1539 654 / 654 Output Total 1125 / 1125 300 / 300 Balance 510 / 510 414 / 414 354 / 354 Microbiology Past 72 Hours 08/18/18 05:24 Gram Stain - Final Sputum, Expectorated/Coughed Respiratory Culture - Final POC Glucose POC Glucose 208 H 168 H 107 POC Glucose 205 H Discharge Activity: - - Avoid exposure to any strong smells such as bleach, cleaning products, strong colognes or perfumes, paint fumes and smoke of any kind. Avoid sudden exposure to cold air because this can cause bronchospasm. You may want to cover your mouth when you go outside in the winter. Avoid exposure to anyone who is sick with a cough or sore throat. Call your doctor if you observe: Fever of 101 or Higher, Shortness of breath, Dizziness, Fainting spells, Chest pain, Calf discomfort Home Medications: Medications to take at Discharge Allopurinol 100 mg PO DAILY 01/07/15 Lovastatin 40 mg PO DAILY 01/07/15 Metformin HCl [Glucophage] 500 mg PO DAILY 01/07/15 Aspirin [Aspirin, Baby] 81 mg PO DAILY 08/17/18 Memantine HCl 10 mg PO BID 08/17/18 Cefdinir [Omnicef [equiv]] 300 mg PO Q12H #10 capsule 08/20/18 Guaifenesin [Mucinex] 1,200 mg PO BID #20 tablet 08/20/18 Prednisone 10 mg PO UD #30 tab 08/20/18 Following Prescrptions Were Given to Patient: Cefdinir [Omnicef [equiv]] 300 mg PO Q12H #10 capsule Prednisone 10 mg PO UD #30 tab Guaifenesin [Mucinex] 1,200 mg PO BID #20 tablet Primary Care Physician: Dallas Vitale DO [Primary Care Provider] - Please follow up with your Primary Care Physician in: 5-7 days Disposition: Home Minutes spent on discharge:: 30 Patient Condition:: Good Medical Necessity - Tobacco Use Smoking Status: Never smoker Meaningful Use Info Meaningful Use Diagnoses (Choose all that apply): None applicable Code Visit Inpatient Nati AND Jesse: [id number] Disch Hosp 08/20/18 1722 <Electronically signed by Jesse Raymond DO> Date Jesse Raymond DO Cosigner Signature (if applicable): Date CC: Starla Raymond; Dallas Vitale DO Signed DISCHARGE INSTRUCTION Observed: 08/20/2018 Status: F Source: [place] 5:02 [place] [facility] [place] [facility] Medical Records Department [address] [place] [address] Instructions for Home/Discharge Instructions 08/20/18 1656 MR#: [id number] Acct: [id number] Name: HUMAIRA BUSTAMANTE Rep #: [id number] : 1945 72 From: Jesse Raymond DO PCP: Dallas Vitale DO Status: ADM IN - Discharge Diagnoses Current Active Problems: Current Active and Chronic Problems (Last Updated 08/18/18 @ 04:47 by Bowen Lechuga MD) Acute bronchitis (Acute) secondary to Streptococcus pneumoniae and influenza a Post viral debility Encephalopathy due to infection You will use the following diet at home:: Other - Carbohydrate controlled diet Your food should be the consistency of: Regular Your liquids should be the consistency of: Regular/Thin Discharge Activity: - - Avoid exposure to any strong smells such as bleach, cleaning products, strong colognes or perfumes, paint fumes and smoke of any kind. Avoid sudden exposure to cold air because this can cause bronchospasm. You may want to cover your mouth when you go outside in the winter. Avoid exposure to anyone who is sick with a cough or sore throat. Call your doctor if you observe: Fever of 101 or Higher, Shortness of breath, Dizziness, Fainting spells, Chest pain, Calf discomfort Additional Instructions: The blood sugars will be high while he is on the Prednisone which is a steroid. This will make you urinate more so be sure todrink enough fluid to keep your urine a pale yellow. The HGBA1C is 6.1 and this is excellent. Allergies/Adverse Reactions: Allergies Penicillins Allergy (Verified 08/18/18 04:52) Unknown allergy occurred when he was a child - reaction unknown Medications to take at Discharge Allopurinol 100 mg PO DAILY 01/07/15 Lovastatin 40 mg PO DAILY 01/07/15 Metformin HCl [Glucophage] 500 mg PO DAILY 01/07/15 Aspirin [Aspirin, Baby] 81 mg PO DAILY 08/17/18 Memantine HCl 10 mg PO BID 08/17/18 Cefdinir [Omnicef [equiv]] 300 mg PO Q12H #10 capsule 08/20/18 Guaifenesin [Mucinex] 1,200 mg PO BID #20 tablet 08/20/18 Prednisone 10 mg PO UD #30 tab 08/20/18 The following prescriptions were given: Cefdinir [Omnicef [equiv]] 300 mg PO Q12H #10 capsule Prednisone 10 mg PO UD #30 tab Guaifenesin [Mucinex] 1,200 mg PO BID #20 tablet Primary Care Physician: Dallas Vitale DO [Primary Care Provider] - Please follow up with your Primary Care Physician in: 5-7 days Test Results: Test results from this visit will be discussed in further detail at your follow-up appointment, if applicable. Proposed Discharge Date: 08/20/18 08/20/181701 <Electronically signed by Jesse Raymond DO> Date Jesse Raymond DO CC: Dallas Vitale DO Signed BEDSIDE GLUCOSE Collected: 08/20/2018 Status: F Source: [place] 4:[place] [facility] [place] CODE TESTS RESULT OUT OF REFERENCE UNITS RANGE LAB L501.080 70-110 mg/dL High BEDSIDE GLU 208 Result Comment: MANAGEMENT OF PATIENT CARE PER NURSING PROTOCOL Performed By: #### L501.080 #### [facility] Point of Care [address] [place], [place] [address] BEDSIDE GLUCOSE Collected: 08/20/2018 Status: F Source: [place] 11:32 AM [facility] [place] TYPE CODE TESTS RESULT OUT OF REFERENCE UNITS RANGE LAB L501.080 70-110 mg/dL High BEDSIDE GLU 168 Result Comment: MANAGEMENT OF PATIENT CARE PER NURSING PROTOCOL Performed By: #### L501.080 #### [facility] Point of Care [address] [place] [address] BEDSIDE GLUCOSE Collected: 08/20/2018 Status: F Source: [place] 6:39 AM [facility] [place] TYPE CODE TESTS RESULT OUT OF RANGE REFERENCE UNITS LAB L501.080 70-110 mg/dL Normal BEDSIDE GLU 107 Result Comment: MANAGEMENT OF PATIENT CARE PER NURSING PROTOCOL Performed By: #### L501.080 #### [facility] Point of Care [address] [place] [address] BEDSIDE GLUCOSE Collected: 08/19/2018 Status: F Source: [place] 9:57 PM [facility] [place] TYPE CODE TESTS RESULT OUT OF REFERENCE UNITS RANGE LAB L501.080 70-110 mg/dL High BEDSIDE GLU 205 Result Comment: Dr Mccann Followed MANAGEMENT OF PATIENT CARE PER NURSING PROTOCOL Performed By: #### L501.080 #### [facility] Point of Care [address] [place] [address] BEDSIDE GLUCOSE Collected: 08/19/2018 Status: F Source: [place] 4:16 PM [facility] [place] TYPE CODE TESTS RESULT OUT OF REFERENCE UNITS RANGE LAB L501.080 70-110 mg/dL High BEDSIDE GLU 237 Result Comment: MANAGEMENT OF PATIENT CARE PER NURSING PROTOCOL Performed By: #### L501.080 #### [facility] Point of Care [address] [place] [address] BEDSIDE GLUCOSE Collected: 08/19/2018 Status: F Source: [place] 11:31 AM [facility] [place] TYPE CODE TESTS RESULT OUT OF REFERENCE UNITS RANGE LAB L501.080 70-110 mg/dL High BEDSIDE GLU 223 Result Comment: MANAGEMENT OF PATIENT CARE PER NURSING PROTOCOL Performed By: #### L501.080 #### [facility] Point of Care [address] [place] [address] BEDSIDE GLUCOSE Collected: 08/19/2018 Status: F Source: [place] 6:51 AM [facility] [place] CODE TESTS RESULT OUT OF REFERENCE UNITS RANGE LAB L501.080 70-110 mg/dL High BEDSIDE GLU 113 Result Comment: MANAGEMENT OF PATIENT CARE PER NURSING PROTOCOL Performed By: #### L501.080 #### [facility] Point of Care [address] [place], [place] [address] CBC W/DIFF, AUTOMATED Collected: 08/19/2018 Status: F Source: [place] 6:05 AM [facility] [place] TYPE CODE TESTS RESULT OUT OF RANGE REFERENCE UNITS LAB L100.1000 4.4-11.0 K/mm3 High WBC 11.8 LAB L100.1200 4.6-6.2 M/mm3 Low RBC 4.32 LAB L100.1300 13.0-16.5 g/dl Low HGB 12.2 LAB L100.1400 40-54 % Low HCT 36.8 LAB L100.1500 80-94 fL Normal MCV 85.2 LAB L100.1600 27.0-32.0 pg Normal MCH 28.2 LAB L100.1700 32-36 g/gl Normal MCHC 33.2 LAB L100.1810 11.6-14.6 % Normal RDW CV 13.7 LAB L100.1820 35.1-43.9 fl Normal RDW SD 42.8 LAB L100.1900 150-450 K/mm3 Normal PLT 187 LAB L100.2000 6.2-12.0 fl Normal MPV 10.5 LAB L100.2100 47-70 % High NEUT% 76.3 LAB L100.2200 19-41 % Low LY% 11.8 LAB L100.2300 0-10 % High MONO% 11.3 LAB L100.2400 0-5 % Normal EO% 0.2 LAB L100.2500 0-1 % Normal BASO% 0.2 LAB L100.2550 0.0-0.9 % Normal IM GRAN % 0.200 Result Comment: IG% - Immature Granulocytes (promyelocytes, myelocytes and metamyelocytes) > 1% indicates that a LEFT SHIFT is Present. LAB L100.2620 2.0-7.7 X10 3/uL High Absolute Neut 9.0 LAB L100.2720 0.83-4.51 X10 3/ul Normal Absolute Lymph 1.39 Performed By: #### L100.0100 #### [facility] [address] [place], [place], [address] BASIC METABOLIC Collected: 08/19/2018 Status: F Source: [place] PROFILE (BMP) 6:05 AM [facility] [place] CODE TESTS RESULT OUT OF RANGE REFERENCE UNITS LAB L501.0100 74-106 mg/dL High GLU 108 Result Comment: Fasting Glucose result from 100 to 125 mg/dL suggests IMPAIRED HOMEOSTASIS per A.D.A. criteria. Please note revised GLUCOSE reference range effective 2017. LAB L501.1000 7-18 mg/dL High BUN 19 LAB L501.1100 0.70-1.30 mg/dL Normal CREAT,SERUM 1.09 Result Comment: The validity of the calculated GFR AND GFRAA in patients over 70 years has not been determined. Clinical correlation is essential. LAB L501.1110 >60 mL/min Normal EST GFR 70 Result Comment: Non- GFR Calc LAB L501.1115 >60 mL/min Normal EST GFR - AA 85 Result Comment: GFR Calc LAB L501.1255 ml/min Normal Estimated CRCL 62.32 LAB L501.1300 10-20 RATIO Normal BUN/CRE 17.4 LAB L501.2200 8.5-10 mg/dL Normal .1 CA 9.0 LAB L501.5300 136-14 mmol/L Normal 5 NA 140 LAB L501.5600 3.5-5. mmol/L Low 1 K 3.4 LAB L501.5900 98-107 mmol/L Normal CL 105 LAB L501.6100 21.0-3 mmol/L Normal 2.0 CO2 24.0 LAB L501.6200 5-15 Normal GAP 11 Performed By: #### L500.2500, L501.2300, L501.5200 #### [facility] [address] [place], [place], [address] PHOSPHORUS Collected: 08/19/2018 Status: F Source: [place] 6:05 [facility] TYPE CODE TESTS RESULT OUT OF RANGE REFERENCE UNITS LAB L501.2300 2.5-4.9 mg/dL Low PHOS 2.3 Performed By: #### L500.2500, L501.2300, L501.5200 #### [facility] [address] [place], [address] MAGNESIUM Collected: 08/19/2018 Status: F Source: [place] 6:05 [facility] TYPE CODE TESTS RESULT OUT OF RANGE REFERENCE UNITS LAB L501.5200 1.6-2.6 mg/dL Normal MG 2.0 Performed By: #### L500.2500, L501.2300, L501.5200 #### [facility] [address] [place], [address] HEMOGLOBIN A1C Collected: 08/19/2018 Status: F Source: [place] 6:05 AM [facility] [place] TYPE CODE TESTS RESULT OUT OF RANGE REFERENCE UNITS LAB L501.9985 4.2-6.3 % Normal HGB A1C 6.1 Performed By: #### L501.9985 #### [facility] [address] [place], [address] BEDSIDE GLUCOSE Collected: 08/18/2018 Status: F Source: [place] 10:12 PM [facility] [place] TYPE CODE TESTS RESULT OUT OF REFERENCE UNITS RANGE LAB L501.080 70-110 mg/dL High BEDSIDE GLU 216 Result Comment: MANAGEMENT OF PATIENT CARE PER NURSING PROTOCOL Performed By: #### L501.080 #### [facility] Point of Care [address] [facility] [place] [address] Observed: 08/18/2018 Status: F Source: [place] RESPIRATORY PANEL 7:25 AM [facility] [place] [facility] RP PANEL RESULTS CALLED TO Eamon WALLER 08/18/18 121Julio Alonzo. REPORT READ BACK BY HUA. Copy of report sent to Infection Control Printer [id number] 08/18/18 Omkar PANDEY. Normal Reference Range = Not Detected ADENOVIRUS Not Detected HUMAN METAPHNEUMO Not Detected INFLUENZA A Positive for INFLUENZA A by NAAT technology INFLUENZA A (SUBTYPE H1) Not Detected INFLUENZA A (SUBTYPE H3) Positive for INFLUENZA A SUBTYPE H3 by NAAT technology INFLUENZA B Not Detected PARAINFLUENZA 1 Not Detected PARAINFLUENZA 2 Not Detected PARAINFLUENZA 3 Not Detected PARAINFLUENZA 4 Not Detected RHINOVIRUS Not Detected RSV A Not Detected RSV B Not Detected NAAT METHOD Testing was performed using nucleic acid amplification ORGANISM 1: INFLUENZA A (SUBTYPE H3) Performed By: #### M100.638 #### [facility] [address] [facility] [place], [address] Observed: 08/18/2018 Status: F Source: [place] CULTURE, SPUT[place] 5:24 AM [facility] [place] Gram Stain Acceptable Specimen? Yes (<25 Epithelial cells per/lpf) Gram Stain 1+ Epithelial cells 3+ White Blood Cells 3+ Gram positive cocci in chains and clusters 1+ Gram negative rods Resp. Culture RESULTS CALLED TO Jesse DENIS 08/19/18 Sahil Alonzo. REPORT READ BACK BY SHANE. Penicillin is the drug of choice for Beta Streptococcal infections. For Penicillin allergic patients, Erythromycin may be used. Mixed normal respiratory anne-marie. ORGANISM 1: Streptococcus group A Amount Growth 3+ Performed By: #### M100.0800 #### [facility] [address] [place] [address] [place], [address] HISTORY AND PHYSICAL Observed: 08/18/2018 Status: F Source: [place] EXAM 4:56 AM [facility] [place] [facility] Medical Records Department [address] [place] [id number] History and Physical 08/18/18 0337 MR#: [id number] Acct: [id number] Name: HUMAIRA BUSTAMANTE Rep #: [id number] : 1945 72 From: Bowen Lechuga MD PCP: Dallas Vitale DO Status: ADM IN [id number] Problem List (1) Acute bronchitis Status: Acute History of Present Illness Date of Admission: 08/18/18 Chief Complaint: cold-like symptoms The patient is a 72 year old M with a significant history of dementia; hypertension; diabetes mellitus; gout; benign prostatic hypertrophy; obstructive sleep apnea; obstructive sleep apnea status post uvulopalatoplasty who came to the hospital because of cold-like symptoms. History was obtained from patient's as patient was confused and was confabulating. reports that patient has had cold-like symptoms. She described the cold symptoms as a runny nose and cough. Associated with her symptoms is chills. Although patient has a baseline dementia his reports that patient has had an increase in his confusion. Unlike previous patient has been incontinent. And he appeared very weak. Because of history of previous UTI his thought that may be he is having a UTI so he was brought to the emergency department. However at emergency department his urine did not show UTI but it showed proteinuria. He had leukocytosis of 13.8 and mild hyponatremia. Chest x-ray was unremarkable. However a CTA of his chest showed bronchiectasis and bronchial wall thickening. Emergency department doctor reported that was on room air patient oxygen saturation was 88%. Past Medical History Medical History: Medical History (Last Updated 08/18/18 @ 04:47 by Bowen Lechuga MD) BPH (benign prostatic hyperplasia) N40.0 Dementia F03.90 Diabetes E11.9 Gout M10.9 HTN (hypertension) I10 Allergies Penicillins Allergy (Verified 08/17/18 23:34) Unknown Home Medications: Ambulatory Orders Medication Instructions Recorded Allopurinol 100 mg PO DAILY 01/07/15 Surgical History: appendectomy - Patient reported that while his appendix was being taken out his gallbladder was taken out too. But his is not sure whether indeed his gallbladder was taken out too., total hip arthroplasty - Left hip, - - Left shoulder surgery. Lives: Spouse/ Significant Other Smoking Status: Never smoker Alcohol: None - *Family History Maternal Family History: Family History (Last Updated 08/18/18 @ 04:49 by Bowen Lechuga MD) Mother Hypertension Father CVA (cerebral vascular accident) Review of Systems Constitutional: Reports: Chills, Weakness. Denies: Fever, Weight Change HEENT: Reports: Sinus Congestion, Sinus Drainage. Denies: Head Aches Cardiovascular: Denies: Chest Pain, Palpitations Respiratory: Reports: Cough, Sputum production Gastrointestinal: Denies: Abdominal Pain, Nausea, Vomiting Genitourinary: Reports: Incontinence. Denies: Dysuria Musculoskeletal: Denies: Joint Pain, Joint Tenderness Skin: Denies: Rash, Wounds Neurological: Denies: Numbness, Tingling, Focal weakness Psychiatric: Denies: Anxiety, Depression, Homicidal Ideations, Suicidal Ideations Hematologic/ Lymphatic: Denies: Easy Bruising, Easy Bleeding VTE Information - Inpt Only VTE Present on Admission: No VTE Mechan Device Prophylaxis: None VTE Pharm Prophylaxis ordered?: Yes Patient Problems: Active and Suspected Problems (Last Updated 08/18/18 @ 04:47 by Boewn Lechuga MD) Acute bronchitis (Acute) - Physical Exam General: Alert, Confused HEENT: Atraumatic, PERRLA, EOMI, Normocephalic Neck: Supple, No JVD, Negative Carotid Bruits Lungs: Rales, Wheezes Cardiovascular: Regular rate Abdomen: Bowel Sounds Present, Non Tender Extremities: No edema, Capillary Refill Less than 3 Seconds Skin: No rashes, No breakdown Musculoskeletal: No Muscle Wasting Neurological: - - Patient is confused and he is confabulating. Psych/Mental Status: Appropriate Vital Signs Temp Pulse Resp BP Pulse Ox 98.9 F 85 18 140/81 H 92 08/18/18 02:31 08/18/18 02:31 08/18/18 02:31 08/18/18 02:31 08/18/18 02:31 Oxygen Flow Rate (L/min) 2 Oxygen Delivery Method Nasal Cannula Weight: 99.79 kg Body Mass Index (BMI) 31.5 Microbiology Past 72 Hours 08/18/18 00:45 Influenza Types A,B Direct FA (ABDIRAHMAN) - Final Mucosa - Nasopharyngeal Laboratory Tests Past 24 Hrs WBC RBC Hgb Hct MCV MCH MCHC RDW RDW Differential Plt Count MPV Immature Gran % (Auto) Neut % (Auto) Lymph % (Auto) [place] % (Auto) Assessment/Plan All Active Problems (Last Updated 08/18/18 @ 04:47 by Bowen Lechuga MD) Acute bronchitis (Acute) The patient is a 72 year old M with a significant history of dementia; hypertension; diabetes mellitus; gout; benign prostatic hypertrophy; obstructive sleep apnea; obstructive sleep apnea status post uvulopalatoplasty who came to the hospital because of cold-like symptoms; incontinence of urine a; mild leukocytosis and radiographic evidence of bronchiectasis and bronchial wall thickening.. Acute hypoxemic respiratory failure secondary to bronchiectasis with acute bronchitis. Patient with oxygen saturation of 88% on room air whiles at emergency department. And on 2 L his oxygen saturation was 92%. Levaquin was started at emergency departments. We will continue Levaquin. Because patient had moderate wheezing and rhonchi will initiate prednisone treatment. Scheduled DuoNeb As needed albuterol ordered Flonase and Mucinex ordered. Will order a comprehensive respiratory pathogen panel. His rapid influenza screen was negative. Supplemental oxygen to keep his saturation above 90%. 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 Trend BMP. Diabetes mellitus On admission his blood glucose was within goal. We will continue home metformin. Hypertension His blood pressure on admission was stable for his age and comorbidities. Not on any home blood pressure medication Trend blood pressure Obstructive Sleep apnea BiPAP continued. DVT prophylaxis Subcutaneous heparin. Code Visit Inpatient E AND M: [id number] Init Hosp L3 08/18/18 0456 <Electronically signed by Bowen Lechuga MD> Date Bowen Lechuga MD Cosigner Signature: Date (if applicable) CC: Bowen Lechuga MD; Dallas Vitale DO Signed EMERGENCY DEPARTMENT Observed: 08/18/2018 Status: C Source: [place] SUMMARY 3:47 AM [facility] [place] [facility] Medical Records Department [address] [place] [address] Emergency Department Summary 08/18/18 0019 MR#: [id number] Acct: [id number] Name: HUMAIRA BUSTAMANTE Rep #: [id number] : 1945 72 From: Nhan Wong MD PCP: Dallas Vitale DO Status: REG ER ADDENDUM by ROLF PHILIP MD on 08/18/18 at 0347 Took over care of this patient. CT head shows no acute abnormalities, CT angiography of the chest shows no PE or dissection but presence of bronchiectasis, which the and patient are unaware of him previously having, as well as bronchial wall thickening especially in the right upper lobe, and given his cough and congestion, with hypoxemia, probably represents infection. He does not have signs of an infiltrate/pneumonia, but I will cover him empirically with antibiotics and admit him to the hospital for further treatment and evaluation. Discussed with hospitalist and the . She states that he does have the early signs of dementia, but today he was way more confused than normal for him. Impression: Delirium Hypoxemia Lower respiratory tract infection Date Rolf Philip MD cc: Dallas Vitale DO * Addendum - ER Visit Summary Date of Service: 08/18/18 Chief Complaint: Incontinence and confusion History of Present Illness: The patient is a 72 M who was brought to the emergency room by his because of incontinence and confusion. He also has a cough. Patient states there is nothing wrong with him. was the informant. He has been incontinent with increased urination the past 24-48 hours. He is also had a cough which is nonproductive. There is been no documented fever. History is limited because patient is disoriented. Physical Examination: Vital signs remarkable for blood pressure 161/80. Pulse ox is only 90% on room air. Patient is alert but he is disoriented. HEENT exam is remarkable for nasal congestion. Lungs reveal fine rales. Heart is regular. Abdomen is soft nontender. There is mild swelling of his extremities. Motor is 5/5. Sensations intact. DTRs symmetric. Cranial 2 through 12 are intact. Gait was not tested. Finger-nose to finger was performed well. Test Results: White count is 13.8 thousand with 79 segs no bands. Basic metabolic panel is unremarkable. Urine is remarkable for blood and ketones. There is no evidence of infection. Two-view chest x-ray reveals no acute pathology. Since patient is hypoxic with a normal chest x-ray will obtain a CTA to evaluate for pulmonary embolus. There may be a small pneumonia that was not detected on the x-ray. Because patient is disoriented incontinent will obtain a CT of the head to evaluate for intracranial reason for his change in mental status since there is no metabolic or infectious etiology. Emergency Department Course and Treatment: With history of confusion frequency and incontinence UA was obtained to assess for UTI. With complaint of runny nose abnormal auscultatory findings and pulse ox 90% chest x-ray appropriate blood work and influenza screen was obtained to evaluate his respiratory symptoms. Believe patient has infectious encephalopathy and reason he is disoriented. CT was not obtained since he does not have focal neurologic findings. Treatment Plan: Further testing and disposition once all tests are done Disposition: Pending Impression: 1. Hypoxia, pulse ox 88% room air 2. Acute disorientation/change in mental status with incontinence evaluate for normal pressure hydrocephalus 3. History of diabetes 4. History hypercholesterolemia 5. History of benign prostatic hypertrophy This note was generated with [employer] dictation software. It may contain incorrect words, spelling, and punctuation that were not noted in review of the chart prior to signing Is unchanged ED Disposition - Plan for ED Patient: Chief Complaint: Complaint Referrals: Dallas Vitale, [Primary Care Provider] - What to do if you have Problems For any increased pain, shortness of breath, bleeding, nausea or vomiting, chest pain, or any unexpected problems, contact your Primary Care Provider. Call [facility] ([phone]) or report to the closest Emergency Room. Call 911 if necessary. 08/18/18 0059 <Electronically signed by Nhan Wong MD> Date Nhan Wong MD Cosigner Signature (If Indicated): Date CC: Dallas Vitale DO BRAIN/HEAD WITHOUT Observed: 08/18/2018 Status: F Source: [place] CONTRAST 1:00 AM [facility] [facility] Imaging Services [address] [place] [address] Brain/Head without Contrast MR#: [id number] Acct: [id number] Name: ROBBYHUMAIRA Rep #: [id number] : 1945 M 72 From: Bro Fuentes MD PCP: Dallas Vitale DO Status: REG ER Study: Brain/Head without Contrast Date of Exam: 08/18/18 Exam# [id number] Ordering Dr: Nhan Wong MD STUDY: CT BRAIN WITHOUT CONTRAST REASON FOR EXAM: Male, 72 years old. Altered mental status. Incontinence. RADIATION DOSAGE (If Supplied By Facility): CTDIvol = ( 44.99 ) mGy, DLP = ( 812.98 ) mGycm TECHNIQUE: Transaxial CT imaging of the brain was performed without administration of intravenous contrast material. Individualized dose optimization techniques were used for this CT. COMPARISON: None. FINDINGS: Normal soft tissue structures. There is hyperostosis frontalis internus. There is mild cerebral atrophy with widening of the extra- axial spaces and ventricular dilatation. There are areas of decreased attenuation within the white matter tracts of the supratentorial brain, consistent with microvascular disease changes. Normal basal ganglia and thalami. Normal brainstem. Normal cerebellum. There is atherosclerotic calcification of the vertebral and cavernous carotid arteries. There is no intracranial hemorrhage. There are no findings of an acute ischemic infarction. There is mucoperiosteal thickening in bilateral maxillary, bilateral ethmoid, and left frontal sinuses, consistent with chronic sinusitis. There is a small amount of fluid with air-fluid levels in the maxillary sinuses bilaterally, consistent with overlying acute sinusitis. CT/Brain/Head without Contrast IMPRESSION: Chronic involutional changes of the brain. No demonstrated acute intracranial process. Mild bilateral acute maxillary sinusitis, overlying more extensive chronic sinus disease. Electronically Signed: Bro Fuentes MD at 2:28 EST , Service support , CC: Dallas Vitale DO; Nhan Wong MD Senior Regulatory Affairs Specialist: Signed CTA CHEST W/WO Observed: 08/18/2018 Status: F Source: [place] CONTRAST 12:56 AM [facility] HOSPITAL REPOSITORY [facility] Imaging Services [address] [place] [address] CTA Chest W/WO Contrast MR#: [id number] Acct: [id number] Name: HUMAIRA BUSTAMANTE Rep #: [id number] : 1945 M 72 From: Bro Fuentes MD PCP: Dallas Vitale DO Status: REG ER Study: CTA Chest W/WO Contrast Date of Exam: 08/18/18 Exam# [id number] Ordering Dr: Nhan Wong MD STUDY: CTA CHEST REASON FOR EXAM: Male, 72 years old. Hypoxia. RADIATION DOSAGE (If Supplied By Facility): CTDIvol = ( 19.63 ) mGy, DLP = ( 726.69 ) mGycm TECHNIQUE: The examination was performed with the intravenous administration of 100 ml of Isovue 370 contrast material. Post-processing of the angiographic images was performed, with multiplanar reformation, but without 3D reconstruction. Individualized dose optimization techniques were used for this CT. COMPARISON: Chest x-ray 08/18/2018. FINDINGS: Normal enhancement of the main pulmonary artery and right and left pulmonary arteries. Normal enhancement of the bilateral peripheral pulmonary arteries. There is no demonstrated pulmonary embolism. There is mild atherosclerotic calcification of the thoracic aorta and visualized great vessels. The left common carotid artery originates from the right brachiocephalic artery, consistent with bovine configuration of the great vessels, a developmental variant. There is no demonstrated aortic dissection. Normal heart and pericardium. There are coronary artery calcifications. There are visualized mediastinal lymph nodes, which are within normal size limits, and with normal morphology. There is an enlarged right hilar lymph node with short axis diameter 1.3 cm. Normal visualized trachea. There is mild bronchiectasis, which is most evident in the lower lobes. There is bronchial wall thickening, is most prominent in the right upper lobe and may represent an infectious or inflammatory bronchitis.. The lungs are hyper expanded, with flattening of the hemidiaphragms. Normal pulmonary parenchyma. Normal pleura. Normal chest wall structures. There are degenerative changes of thoracic spine. There is a small hiatal hernia. CT/CTA Chest W/WO Contrast IMPRESSION: No demonstrated pulmonary embolism, aortic aneurysm, or aortic dissection. COPD. Bronchiectasis. Bronchial wall thickening, most prominent in the right upper lobe, may represent an infectious or inflammatory bronchitis. Atherosclerosis. Mild right hilar lymphadenopathy. Electronically Signed: Bro Fuentes MD at 2:47 EST , Service support , CC: Dallas Vitale DO; Nhan Wong MD Senior Regulatory Affairs Specialist: Signed Observed: 08/18/2018 Status: F Source: [place] INFLUENZA A+B (RAPID 12:45 AM [facility] [place] REPOSITORY Order Date: 08/18/18 Has pt arrived? Y FLU A/B Rapid Negative test results should be confirmed with FLU PANEL MOLECULAR if indicated. Influenza Ag, Direct Presumptive NEGATIVE for Influenza A/B Antigen (See Note) Performed By: #### M101.0101 #### [facility] [address] [facility] [place], [address] CHEST PA AND LATERAL Observed: 08/18/2018 Status: F Source: [place] 12:01 AM [facility] [place] [facility] Imaging Services [address] [facility] [place] [address] Chest PA and Lateral MR#: [id number] Acct: [id number] Name: HUMAIRA BUSTAMANTE Rep #: [id number] : 1945 M 72 From: Ryan Abreu MD PCP: Dallas Vitale DO Status: REG ER Study: Chest PA and Lateral Date of Exam: 08/18/18 Exam# [id number] Ordering Dr: Nhan Wong MD STUDY: X-RAY CHEST REASON FOR EXAM: Male, 72 years old. Cough TECHNIQUE: Frontal and lateral views of the chest. COMPARISON: None. FINDINGS: Subsegmental atelectases are noted in the right and left lung bases. There is no demonstrated pleural abnormality. Normal size heart. Normal mediastinum and norberto. Normal visualized pulmonary arteries. Normal visualized aortic arch and descending thoracic aorta. There are diffuse degenerative changes and dextroscoliosis of the visualized thoracic spine. Normal visualized ribs, clavicles, and shoulders. There is no demonstrated abnormality of the visualized soft tissue structures of the upper abdomen. RAD/Chest PA and Lateral IMPRESSION: Degenerative changes, as described above. No demonstrated acute cardiopulmonary process. Electronically Signed: Ryan Abreu MD at 1:38 EST Tel , Service support , CC: Dallas Vitale DO; Nhan Wong MD Senior Regulatory Affairs Specialist: Signed URINALYSIS, COMPLETE Collected: 08/17/2018 Status: F Source: [place] 12:50 AM [facility] [place] Order Comment: Order Date: 08/17/18 How was Urine Obtained? CLEAN CATCH TYPE CODE TESTS RESULT OUT OF RANGE REFERENCE UNITS LAB L400.3000 Yellow COLOR Normal Yellow LAB L400.3050 Clear Normal CLARITY Clear LAB L400.3200 Normal mg/dl Normal GLUCOSE, UR Normal LAB L400.3300 Negative mg/dL Normal BILIRUBIN URINE Negative LAB L400.3400 Negative mg/dl High 15 KETONE UR LAB L400.3465 1.002-1.030 Normal SP.GR. DIPSTX 1.015 LAB L400.3550 5.0 - 8.0 pH UR Normal 5.0 LAB L400.3600 Negative mg/dl High PROT DIPSTX 100 LAB L400.3700 Normal mg/dl High 4 UROBILI LAB L400.3750 Negative Normal NITRITE UR Negative LAB L400.3780 Negative /ul High OCCULT BLOOD-UR 150 LAB L400.3800 Negative /ul LEUK Normal ESTERASE Negative LAB L400.4050 0-5 /hpf WBC 0 Normal SEEN LAB L400.4100 0-5 /hpf 0 Normal RBC-UA SEEN LAB L400.4150 0-5 /hpf SQUAM 0 Normal EPI SEEN LAB L400.4300 None Seen /hpf 0 Normal BACTERIA SEEN LAB L400.4350 <or=2+ /hpf 0 Normal MUCUS, URINE SEEN Performed By: #### L400.0001 #### [facility] [address] [place], [place], [address] BASIC METABOLIC Collected: 08/17/2018 Status: F Source: [place] PROFILE (BMP) 12:14 AM [facility] TYPE CODE TESTS RESULT OUT OF RANGE REFERENCE UNITS LAB L501.0100 74-106 mg/dL High GLU 132 Result Comment: Fasting Glucose result greater than or equal to 126 mg/dL suggests DIABETES MELLITUS per A.D.A. criteria. Please note revised GLUCOSE reference range effective 2017. LAB L501.1000 7-18 mg/dL Normal BUN 16 LAB L501.1100 0.70-1.30 mg/dL Normal CREAT,SERUM 1.12 Result Comment: The validity of the calculated GFR AND GFRAA in patients over 70 years has not been determined. Clinical correlation is essential. LAB L501.1110 >60 mL/min Normal EST GFR 68 Result Comment: Non- GFR Calc LAB L501.1115 >60 mL/min Normal EST GFR - AA 82 Result Comment: GFR Calc LAB L501.1255 ml/min Normal Estimated CRCL 60.65 LAB L501.1300 10-20 RATIO Normal BUN/CRE 14.3 LAB L501.2200 8.5-10 mg/dL Normal .1 CA 8.9 LAB L501.5300 136-14 mmol/L Low 5 NA 135 LAB L501.5600 3.5-5. mmol/L Normal 1 K 3.8 LAB L501.5900 98-107 mmol/L Normal CL 103 LAB L501.6100 21.0-3 mmol/L Normal 2.0 CO2 24.0 LAB L501.6200 5-15 Normal GAP 8 Performed By: #### L500.2500 #### [facility] [address] [place], [address] CBC W/DIFF, AUTOMATED Collected: 08/17/2018 Status: C Source: [place] 12:14 AM [facility] [place] TYPE CODE TESTS RESULT OUT OF RANGE REFERENCE UNITS LAB L100.1000 4.4-11.0 K/mm3 High WBC 13.8 LAB L100.1200 4.6-6.2 M/mm3 Normal RBC 4.75 LAB L100.1300 13.0-16.5 g/dl Normal HGB 13.3 LAB L100.1400 40-54 % Normal HCT 40.6 LAB L100.1500 80-94 fL Normal MCV 85.5 LAB L100.1600 27.0-32.0 pg Normal MCH 28.0 LAB L100.1700 32-36 g/gl Normal MCHC 32.8 LAB L100.1810 11.6-14.6 % Normal RDW CV 13.7 LAB L100.1820 35.1-43.9 fl Normal RDW SD 42.9 LAB L100.1900 150-450 K/mm3 Normal PLT 175 LAB L100.2000 6.2-12.0 fl Normal MPV 9.9 LAB L100.2100 47-70 % High NEUT% 79.2 LAB L100.2200 19-41 % Low LY% 7.3 LAB L100.2300 0-10 % High MONO% 13.0 LAB L100.2400 0-5 % Normal EO% 0.2 LAB L100.2500 0-1 % Normal BASO% 0.1 LAB L100.2550 0.0-0.9 % Normal IM GRAN % 0.200 Result Comment: IG% - Immature Granulocytes (promyelocytes, myelocytes and metamyelocytes) > 1% indicates that a LEFT SHIFT is Present. LAB L100.2620 2.0-7.7 X10 3/uL High Absolute Neut 10.9 LAB L100.2720 0.83-4.51 X10 3/ul Normal Absolute Lymph 1.01 LAB L100.4500 Normal SMEAR COMMENT SCANNED Result Comment: MONOCYTOSIS NOTED LAB L100.9900 Normal Reviewed PATH REV Result Comment: Neutrophilic leukocytosis. Clinical correlation necessary. Jean Marie Valero M.D. 08/18/18 AMENDED REPORT 08/18/18 1056 PATH REV previously reported as: December Performed By: #### L100.0100 #### [facility] [address] [facility] [place], [address] LACTIC ACID Collected: 08/17/2018 Status: F Source: [place] 12:14 AM [facility] [place] Order Comment: Yes/No query for Sepsis Lactate Rule Y TYPE CODE TESTS RESULT OUT OF RANGE REFERENCE UNITS LAB L503.6005 0.4-2.0 mmol/L Normal LACTIC ACID 1.0 Performed By: #### L503.6005 #### [facility] [address] [place], [address] CBC W/DIFF, AUTOMATED Collected: 05/12/2018 Status: F Source: [place] 9:31 AM [facility] TYPE CODE TESTS RESULT OUT OF RANGE REFERENCE UNITS LAB L100.1000 4.4-11.0 K/mm3 Normal WBC 7.5 LAB L100.1200 4.6-6.2 M/mm3 Normal RBC 4.95 LAB L100.1300 13.0-16.5 g/dl Normal HGB 14.1 LAB L100.1400 40-54 % Normal HCT 43.3 LAB L100.1500 80-94 fL Normal MCV 87.5 LAB L100.1600 27.0-32.0 pg Normal MCH 28.5 LAB L100.1700 32-36 g/gl Normal MCHC 32.6 LAB L100.1810 11.6-14.6 % Normal RDW CV 14.0 LAB L100.1820 35.1-43.9 fl High RDW SD 44.0 LAB L100.1900 150-450 K/mm3 Normal PLT 223 LAB L100.2000 6.2-12.0 fl Normal MPV 10.9 LAB L100.2100 47-70 % Normal NEUT% 56.4 LAB L100.2200 19-41 % Normal LY% 28.7 LAB L100.2300 0-10 % High MONO% 11.1 LAB L100.2400 0-5 % Normal EO% 3.1 LAB L100.2500 0-1 % Normal BASO% 0.4 LAB L100.2550 0.0-0.9 % Normal IM GRAN % 0.300 Result Comment: IG% - Immature Granulocytes (promyelocytes, myelocytes and metamyelocytes) > 1% indicates that a LEFT SHIFT is Present. LAB L100.2620 2.0-7.7 X10 3/uL Normal Absolute Neut 4.2 LAB L100.2720 0.83-4.51 X10 3/ul Normal Absolute Lymph 2.14 Performed By: #### L100.0100 #### [facility] [address] [place], [place], [address] HEMOGLOBIN A1C Collected: 05/12/2018 Status: F Source: [place] 9:31 AM [facility] [place] TYPE CODE TESTS RESULT OUT OF RANGE REFERENCE UNITS LAB L501.9985 4.2-6.3 % Normal HGB A1C 5.8 Performed By: #### L501.9985 #### [facility] [address] [place], [address] COMPREHENSIVE METABOLIC Collected: 05/12/2018 Status: F Source: [place] 9:31 AM [facility] [place] TYPE CODE TESTS RESULT OUT OF RANGE REFERENCE UNITS LAB L501.0100 74-106 mg/dL High GLU 119 Result Comment: Fasting Glucose result from 100 to 125 mg/dL suggests IMPAIRED HOMEOSTASIS per A.D.A. criteria. Please note revised GLUCOSE reference range effective 2017. LAB L501.1000 7-18 mg/dL Normal BUN 14 LAB L501.1100 0.70-1.30 mg/dL Normal CREAT,SERUM 1.02 Result Comment: The validity of the calculated GFR AND GFRAA in patients over 70 years has not been determined. Clinical correlation is essential. LAB L501.1110 >60 mL/min Normal EST GFR 76 Result Comment: Non- GFR Calc LAB L501.1115 >60 mL/min Normal EST GFR - AA 92 Result Comment: GFR Calc LAB L501.1300 10-20 RATIO Normal BUN/CRE 13.7 LAB L501.1500 6.4-8.2 g/dL T Normal PROT 7.5 LAB L501.1800 3.2-5.0 g/dL Normal ALB 3.9 LAB L501.1950 2.2-4.2 g/dL Normal GLOB 3.6 LAB L501.2000 0.9-2.4 RATIO Normal A/G 1.1 LAB L501.2200 8.5-10.1 mg/dL CA Normal 9.3 LAB L501.4100 15-37 U/L Normal AST 18 LAB L501.4305 45-117 U/L Normal ALK P 94 LAB L501.4405 16-61 U/L Normal ALT 28 LAB L501.4600 0.20-1.00 mg/dL T Normal BILI 0.70 LAB L501.5300 136-145 mmol/L NA Normal 142 LAB L501.5600 3.5-5.1 mmol/L K Normal 4.4 LAB L501.5900 98-107 mmol/L CL Normal 105 LAB L501.6100 21.0-32.0 mmol/L Normal CO2 28.0 LAB L501.6200 5-15 Normal GAP 9 Performed By: #### L500.4050, L500.4100, L501.1400 #### [facility] [address] [place], [place], [address] LIPID PROFILE Collected: 05/12/2018 Status: F Source: [place] 9:31 AM [facility] [place] TYPE CODE TESTS RESULT OUT OF RANGE REFERENCE UNITS LAB L501.4900 200 mg/dL Normal CHOL 169 Result Comment: <200 mg/dL Desirable 200-240 mg/dL Borderline >240 mg/dL High Risk LAB L501.5000 mg/dL Normal TRIG 121 Result Comment: The drugs N-Acetylcysteine and Metamizole may falsely depress this assay. Serum Triglycerides Reference Interval Normal <150 mg/dL Borderline high 150 - 199 mg/dL High 200 - 499 mg/dL Very High > or = 500 mg/dL LAB L501.6400 mg/dL Normal HDL 46 Result Comment: The drugs N-Acetylcysteine and Metamizole may falsely depress this assay. Reference Range HDL <40 mg/dL Low HDL Cholesterol HDL >or= 60 mg/dL High HDL Cholesterol LAB L501.6500 0-130 mg/dL Normal LDL 99 LAB L501.6600 5-40 mg/dL Normal VLDL 24 Performed By: #### L500.4050, L500.4100, L501.1400 #### [facility] [address] [facility] [address] [place], [place], [address] URIC ACID Collected: 05/12/2018 Status: F Source: [place] 9:31 AM [facility] [place] TYPE CODE TESTS RESULT OUT OF RANGE REFERENCE UNITS LAB L501.1400 3.5-7.2 mg/dL Normal URIC 5.5 Result Comment: The drugs N-Acetylcysteine and Metamizole may falsely depress this assay. Performed By: #### L500.4050, L500.4100, L501.1400 #### [facility] [address] [facility] [place], [place], [address] MICROALB:CREAT Collected: 05/12/2018 Status: F Source: [place] RATIO,RANDOM UR 9:31 AM [facility] TYPE CODE TESTS RESULT OUT OF RANGE REFERENCE UNITS LAB L501.1200 NO RANGE EST. mg/dL Normal UR CREAT 76.10 LAB L502.0500 NO RANGE EST. mg/L Normal 20.0 MICROALBUMIN ,UR LAB L502.0600 <30 mg/g CRE mg/g CRE Normal 26.3 MALB:CREAT Performed By: #### L502.0250 #### [facility] [address] [place], [address] ALLERGIES ALLERGIES DATE TYPE / CODE NAME / CODE REACTION SEVERITY SOURCE 09/09/2018 Drug Penicillins/F Unknown Unknown [facility] Allergy/4160 [id number](RXN Hospital 07817(SNOMED ORM) Repository CT) 01/06/2015 Drug No Known Unknown [facility] Allergy/4160 Allergies/F00 Hospital 78601(SNOMED 6095262(RXNOR Repository CT) M) ENCOUNTERS ENCOUNTERS ADMIT/DISCHARGE ACCOUNT ADMITTING ENCOUNTER LOCATION SOURCE NUMBER CLASS 09/09/2018/ [id number] Emergency [place] 9 5 [facility] ing:ED Repository 09/03/2018/ [id number] Emergency [place] [address] 6 [facility] ing:ED Repository 08/18/2018 [id number] [place], Ambulatory BMSBuilding:B [place] [address] [place] Repository 08/18/2018 [id number] [place], Ambulatory BMSBuilding:B [place] [address] [place] Repository 08/18/2018 [id number] [place], Ambulatory BMSBuilding:B [place] [address] [place] Repository 08/18/2018/ [id number] [place], Inpatient [place] [address] [place] Encounter [facility] ing:GF8Mluv: Repository TR456Iyd: 1 05/12/2018 [id number] Ambulatory [place] 1 [facility] ing:BFHLAB Repository PAYERS PAYERS ENCOUNTER GUARANTOR PAYER SUBSCRIBER SOURCE 09/09/2018 HUMAIRA [place] Primary HUMAIRA [place] [id number] Insurance:MEDICARE [id number]: Repository [address]Yjc: [phone] [id number] [phone] () Date:2018-09-09 09/09/2018 Secondary HUMAIRA [place] Insurance:AARPPolicy [place]ST[place]SDOB: Community Number: [id number] [id number] Repository Date:1891-04-34KZ [address], [place] [address]NL: 09/09/2018 Tertiary NOT GIVENUNK [place] Insurance:SELF PAY [facility]: Effective Repository Date:2018-09-09 09/03/2018 HUMAIRA L Primary HUMAIRA [place] [id number] Insurance:AARPPolicy [place]ST[place]SDOB: Community [address] Number: [id number], [place] [id number] Repository [address]Rug: [phone]) Date:7459-13-22LM [id number] () [place], [place] [address]VB: 09/03/2018 Secondary HUMAIRA [place] Insurance:RR HASTINGSDOB: Community MEDICAREPolicy [id number] Hospital Number: Repository [id number] Date:0253-76-08YS [address]SBJKTFO [place] [address]UP: 09/03/2018 Tertiary NOT GIVENUNK [place] Insurance:SELF PAY [facility] Number: Effective Repository Date:2018-09-03 08/18/2018 HUMAIRA Duque Primary Insurance:RR HUMAIRA [place] [id number] MEDICAREPolicy [place]ST[place]SDOB: Community [address] Number: [id number], [place] [id number] Repository [address]Ptf: [phone] Date:0237-98-19SY [phone] () [address]902PBTJBBH [place] [address]88VY: 08/18/2018 Secondary HUMAIRA Duque [place] Insurance:AARPPolicy [place]ST[place]SDOB: Community Number: [id number] Hospital [id number] Repository Date:3233-51-69MZ [address]BYBOPFF, [place] [address]CX: 08/18/2018 Tertiary NOT GIVENUNK [place] Insurance:SELF PAY Community [facility] Number: Effective Repository Date:2018-08-18 08/18/2018 HUMAIRA Dunia Primary HUMAIRA Yost [id number] Insurance:AARPPolicy [place]SDOB: Community [address] [place]: [id number] [id number] Repository [address]Mxp: [phone]) Date:2356-80-15JV [phone] () [id number], [place] [address]DR: 08/18/2018 Secondary HUMAIRA Hicksoster Insurance:RR [place]ST[place]SDOB: Community MEDICAREPolicy [id number] Hospital Number: Repository [id number] Date:9095-00-48AG [address] [place] [address]FF: 08/18/2018 Tertiary NOT GIVENUNK [place] Insurance:SELF PAY [facility] Number: Effective Repository Date:2018-08-18 08/18/2018 HUMAIRA Duque Primary Insurance:RR HUMAIRA Yost [id number] MEDICAREPolicy [place]OB: Community [address] Number: [id number], [place] [id number] Repository [address]Kol: ([phone]) Date:6650-90-46UC [phone] () [address]UNBLGAW, [place] [address]XV: 08/18/2018 Secondary HUMAIRA Hicksoster Insurance:AARPPolicy [place]SDOB: Community Number: [id number] Hospital [id number] Repository Date:0720-70-35AW [address]EKUOFRU, [place] [address]WW: 08/18/2018 Tertiary NOT GIVENUNK [place] Insurance:SELF PAY [facility] Number: Effective Repository Date:2018-08-18 08/18/2018 HUMAIRA Duque Primary HUMAIRA Yost [id number] Insurance:MEDICARE [place]OB: Community [address] PART A BPolicy [id number] Number: Repository [id number]: [phone] [id number] [phone] (HP) Date:2018-08-17 08/18/2018 Secondary HUMAIRA Yost Insurance:[facility]: [facility] Number: [id number] Hospital [id number] Repository Date:3381-03-54QI [address]GBFKUYK, [place] [address]KO: 08/18/2018 Tertiary NOT GIVENUNK [place] Insurance:SELF PAY [facility] Number: Effective Repository Date:2018-08-17 05/12/2018 Humaira Duque Primary Humaira Yost [id number] Insurance:MEDICARE [facility] insanesDOB: [address] [facility] [id number] Number: Repository [id number]: 330 [id number] [phone] (HP) Date:2018-05-12 05/12/2018 Secondary ABRAHAM A [place] Insurance:[facility] [address] [facility]: [facility] [id number] Hospital Number: Repository [id number] Date:9514-99-20GL [address]ZYVRHBV, [place] [address]DP: 05/12/2018 Tertiary NOT GIVENUNK [place] Insurance:SELF PAY [facility] Number: Effective Repository Date:2018-05-12
== END 2018-09-03 18:58 | disposition home or self-care (01) ==
PROVIDERS: Emergency Provider Emergency Medicine; Family Provider Family Medicine; PCP Family Medicine
DX: R41.82 Altered mental status, unspecified (principal); G47.33 Obstructive sleep apnea (adult) (pediatric); Z91.19 Patient's noncompliance with other medical treatment and regimen; F03.90 Unspecified dementia, unspecified severity, without behavioral disturbance, psychotic disturbance, mood disturbance, and anxiety; E11.9 Type 2 diabetes mellitus without complications; I10 Essential (primary) hypertension; N40.0 Benign prostatic hyperplasia without lower urinary tract symptoms; M10.9 Gout, unspecified; Z79.82 Long term (current) use of aspirin; Z79.899 Other long term (current) drug therapy
CPT/HCPCS: 70450; 71045; 80048; 81001; 82962; 84484; 85025; 93005; 99285; J7030; A4216

== ENCOUNTER 2018-09-09 12:21 | Emergency (ER) | payer MEDICARE, OTHER, SELFPAY ==
[2018-09-09 12:26] VITALS: BP 151/96; PULSE 66; RESP 14; TEMP 36.9; O2SAT 93; BMI 29.7
[2018-09-09 13:10] LABS: Absolute Lymphocyte Count 1.89 X10^3/ul (0.83-4.51); Absolute Neutrophil Count 4.2 X10^3/uL (2.0-7.7); Basophil# 0.02 X10^3/uL; Basophil% 0.3 % (0-1); Eosinophil# 0.13 X10^3/uL; Eosinophils% 1.9 % (0-5); Hematocrit 40.8 % (40-54); Hemoglobin 13.2 g/dl (13.0-16.5); Lymphocyte # 1.89 X10^3/ul (4.0); Mean Corp Hgb Conc 32.4 g/gl (32-36); Mean Corpuscular Hgb 28.2 pg (27.0-32.0); Mean Corpuscular Volume 87.2 fL (80-94); Mean Platelet Vol. 9.9 fl (6.2-12.0); Monocyte# 0.77 X10^3/uL; Neutrophil # 4.16 X10^3/uL (2.7-7.7); Neutrophil % 59.5 % (47-70); Platelet Count 167 K/mm3 (150-450); RBC Distribution Width CV 14.1 % (11.6-14.6); RBC Distribution Width SD 43.9 fl (35.1-43.9); Red Blood Count 4.68 M/mm3 (4.6-6.2)
[2018-09-09 13:11] LABS: POSITIVE COUNT NO; POSITIVE DIFFERENTIAL NO; POSITIVE MORPHOLOGY NO
[2018-09-09 13:20] LABS: Anion Gap 7 (5-15); BUN 13 mg/dL (7-18); BUN/Creat Ratio 14.3 RATIO (10-20); Calcium,Total 8.9 mg/dL (8.5-10.1); Chloride 108 mmol/L (98-107); Creatinine, Serum 0.91 mg/dL (0.70-1.30); EST Glomerular Filtration Rate 87 mL/min (>60); Est Glom Filt Rate - Afr Amer 105 mL/min (>60); Estimated Creatinine Clearance 74.65 ml/min; Glucose 85 mg/dL (74-106); Potassium 3.8 mmol/L (3.5-5.1); Sodium Level 141 mmol/L (136-145)
[2018-09-09 13:32] LABS: Bacteria 0 SEEN /hpf (None Seen); Mucous, Urine 0 SEEN /hpf (<or=2+); Red Blood Cells-Urine 0 SEEN /hpf (0-5); Squamous Epithelial Cells - UA 0 SEEN /hpf (0-5); White Blood Cells 0 SEEN /hpf (0-5)
[2018-09-09 13:37] LABS: Color, Urine Yellow (Yellow); Glucose, Dipstick Normal (Normal); Ketone-Dipstick 5 mg/dl (Negative); Leukocyte Esterase-Dipstick Negative /ul (Negative); Nitrite-Dipstick Negative (Negative); Occult Blood-Urine Negative /ul (Negative); Protein-Dipstick Negative (Negative); Specific Gravity, Urine 1.005 (1.002-1.030); Urine Bilirubin Dipstick Negative (Negative); Urine Clarity Clear (Clear); Urine Urobilinogen Normal (Normal)
--- NOTE | 2018-09-09 13:42 | CM.ED ---
Social Work Note Referral from Dr. Wong for resources and assistance for home going. Face to face with pt and his , Sobeida. Son and daughter present at this time as well. Introduced self and role at [facility]. Confirm that the pt has Dr. Vitale as a PCP and does not presently see any specialists. Preferred pharmacy is [id number] in [place]. Pt's his HCPOA, but papers on not on file. Pt lives with his in a split level home with a ramp for entry. DME consists of a walker, cane and CPAP machine. Discuss that on his last admission therapy had recommended home health therapy and family is agreeable to this. Educate that this would not be a daily service and understanding expressed by family. Also provided information on [employer]. No further needs expressed at this time and pt and family intend on returning home. [facility] referral for PT/OT, and SHABBIR faxed. Placed call to Christine to update, and Christine will follow-up with the pt's , Sobeida. PLAN: Discharge home with PT/OT, , and SHABBIR through [facility] for additional rehabilitation and services. Clarissa Browning, [employer], [place]
[2018-09-09 14:09] VITALS: BP 153/84; PULSE 69; RESP 16; O2SAT 94
--- NOTE | 2018-09-09 15:12 | ED.VISSUMM ---
- ER Visit Summary Date of Service: 09/09/18 Chief Complaint: brought patient because he complains of not feeling right. History of Present Illness: The patient is a 72 M Patient has history of dementia. He has had increased problems since admission for delirium secondary to influenza type A. He has voiced no other complaints other than he feels strange. He has not informed that he had chest pain, shortness of breath. has not noted him to be short of breath. He apparently fell off the commode yesterday onto his knees. There is no head trauma. There is no loss of conscious. Denies neck pain. He denies urologic symptoms. has not noted any abnormal movements or difficulty using one extremity versus another. She states she would like an answer. Physical Examination: Vital signs noted blood pressure is elevated. Head is atraumatic normocephalic. Pupils are equal round reactive. Extraocular muscles are intact. TMs are pearly white with landmarks noted. Nares patent with no drainage. Posterior pharynx without erythema or exudate. Uvula is midline. There is no dysphonia or dysphasia. Trachea is midline. There is no stridor with auscultation of the neck. Heart is regular without murmur, gallop or rub. S1 and S2 are normal. Lungs are clear to auscultation with good movement of air bilaterally. Abdomen is soft nontender. He is alert but not oriented. He is not demonstrating any agitation in the emergency department. and family were states he becomes agitated. He has not harmed his . She feels safe at home. Motor is 5/5. Sensations intact. DTRs symmetric no clonus or Babinski sign. Cranial 2 through 12 are intact. Test Results: Review of prior records for this month. CBC, basic metabolic panel and UA were obtained and are unremarkable. Emergency Department Course and Treatment: Metabolic/infectious workup was undertaken. He had a recent CAT scan during his September 03 visit. This was not repeated. He had a chest x-ray which was done and not repeated since he has no respiratory symptoms nor findings. Case management was consulted. Arrangements have been made for increased care at home Treatment Plan: Outpatient home health Disposition: Discharge to home with spouse and children Impression: Exacerbation of dementia This note was generated with [employer] dictation software. It may contain incorrect words, spelling, and punctuation that were not noted in review of the chart prior to signing ED Disposition - Plan for ED Patient: Disposition: Home or Assisted Living Chief Complaint: Fall Instructions: ED Dementia Caregiver Support Referrals: Dallas Vitale DO [Primary Care Provider] - Keep Veronica appointment
--- NOTE | 2018-09-09 15:22 | ED.VISSUMM ---
- ER Visit Summary Date of Service: 09/09/18 Chief Complaint: [] History of Present Illness: The patient is a 72 M [] Physical Examination: [] Test Results: [] Emergency Department Course and Treatment: [] Treatment Plan: [] Disposition: [] Impression: [] This note was generated with [employer] dictation software. It may contain incorrect words, spelling, and punctuation that were not noted in review of the chart prior to signing ED Disposition - Plan for ED Patient: Disposition: Home or Assisted Living Chief Complaint: Fall Instructions: ED Dementia Caregiver Support Prescriptions: Haloperidol [Haldol] 2 mg PO QHS #60 tablet Referrals: Dallas Vitale DO [Primary Care Provider] - Keep Veronica appointment
--- NOTE | 2018-09-09 15:29 | ED.DCSUM_ITS ---
- ER Visit Summary Date of Service: 09/09/18 Chief Complaint: [] History of Present Illness: The patient is a 72 M [] Physical Examination: [] Test Results: [] Emergency Department Course and Treatment: [] Treatment Plan: [] Disposition: [] Impression: [] This note was generated with [employer] dictation software. It may contain incorrect words, spelling, and punctuation that were not noted in review of the chart prior to signing ED Disposition - Plan for ED Patient: Disposition: Home or Assisted Living Chief Complaint: Fall Instructions: ED Dementia Caregiver Support Prescriptions: Haloperidol [Haldol] 2 mg PO QHS #60 tablet Referrals: Dallas Vitale DO [Primary Care Provider] - Keep Veronica appointment
[2018-09-09 15:46] VITALS: BP 151/71; PULSE 68; RESP 14; O2SAT 95
[2018-09-09] MEDS: Haloperidol 5 MG Tablet 2.5 MG PO (18:51)
--- NOTE | 2018-09-09 18:52 | ED.RN ---
when pt was D/C from department he was given a rx for Haldol. there were no local pharmacies that were able to fill the rx. Dr Wong was aware and wrote for 2.0mg Haldol for home. The pharmacy did not have 1mg tabs available. Dr Quigley verified 2.5mg was an appropriate dose. I called Deborah Zavala and she returned to peanut picker the tablet.
--- OUTSIDE RECORDS SUMMARY | 2018-11-11 18:20 | XMS RPT_ITS ---
:1945 Author Organization OHIP Care Team Providers Name Role Phone Dallas Vitale Primary Care Unavailable Bowen Lechuga Admitting Unavailable SemenStarla yousif Attending Unavailable Bowen Lechuga Admitting Unavailable Bowen Lechuga Attending Unavailable Dallas Vitale Primary Care Unavailable Bowen Lechuga Consulting Unavailable Bowen Lechuga Admitting Unavailable SemenStarla yousif Attending Unavailable Dallas Vitale Primary Care Unavailable Semennica, Starla Consulting Unavailable Bowen Lechuga Admitting Unavailable Semennica, Starla Attending Unavailable Dallas Vitale Primary Care Unavailable Sementi, Starla Consulting Unavailable Dallas Vitale Primary Care Unavailable Magdiel Lau Attending Unavailable Dallas Vitale Primary Care Unavailable Nhan Wong Attending Unavailable Dallas Vitale Attending Unavailable Dallas Vitale Primary Care Unavailable PROBLEMS PROBLEMS DATE TYPE CONDITION / CODE ATTENDING STATUS SOURCE 08/22/2018 Unknown J96.01 - Acute Sementi, Active Malin respiratory Starla Community failure with Hospital hypoxia / Repository J96.01(ICD-10) PROCEDURES PROCEDURES No Procedure Records FoundRESULTS RESULTS EMERGENCY DEPARTMENT Observed: 09/09/2018 Status: F Source: PRIYANK SUMMARY 3:29 PM [facility] [address] [place] [address] Emergency Department Summary 09/09/18 1522 MR#: [id number] Acct: [id number] Name: HUMAIRA BUSTAMANTE Rep #: [id number] : 1945 72 From: Nhan Wong MD PCP: Dallas Vitale DO Status: REG ER - ER Visit Summary Date of Service: 09/09/18 Chief Complaint: [] History of Present Illness: The patient is a 72 M [] Physical Examination: [] Test Results: [] Emergency Department Course and Treatment: [] Treatment Plan: [] Disposition: [] Impression: [] This note was generated with Provesicaation software. It may contain incorrect words, spelling, [...] your Primary Care Provider. Call [facility] ([phone]) or report to the closest Emergency Room. Call 911 if necessary. 09/09/18 1529 <Electronically signed by Nhan Wong MD> Date Nhan Wong MD Cosigner Signature (If Indicated): Date CC: Dallas Vitale DO EMERGENCY DEPARTMENT Observed: 09/09/2018 Status: F Source: BOWIE SUMMARY 3:17 PM [facility] REPOSITORY [facility] Department [address] [place] [address] Emergency Department Summary 09/09/18 1512 MR#: [id number] Acct: [id number] Name: HUMAIRA BUSTAMANTE Rep #: [id number] : 1945 72 From: Nhan Wong MD [...] of dementia This note was generated with Recoup dictation software. It may contain incorrect words, [...] your Primary Care Provider. Call [facility] ([phone]) or report to the closest Emergency Room. Call 911 if necessary. 09/09/18 1517 <Electronically signed by Nhan Wong MD> Date Nhan Wong MD Cosigner Signature (If Indicated): Date CC: Dallas Vitale DO URINALYSIS, COMPLETE Collected: 09/09/2018 Status: F Source: PRIYANK 1:20 PM [facility] REPOSITORY Order Comment: How was Urine Obtained? PIG MACHINE CRANE OPERATOR TO SPECIFY TYPE CODE TESTS RESULT OUT [...] URINE SEEN Performed By: #### L400.0001 #### [facility] Laboratory [address] [place], [place], [address] CBC W/DIFF, AUTOMATED Collected: 09/09/2018 Status: F Source: BOWIE 1:05 PM [facility] REPOSITORY TYPE CODE TESTS RESULT OUT OF [...] Lymph 1.89 Performed By: #### L100.0100 #### [facility] [address] [place], [place], [address] BASIC METABOLIC Collected: 09/09/2018 Status: F Source: BOWIE PROFILE (BMP) 1:05 PM [facility] REPOSITORY TYPE CODE TESTS RESULT OUT OF [...] GAP 7 Performed By: #### L500.2500 #### [facility] [address] [place], [address] 12 LEAD ELECTROCARDIOGRAM Observed: 09/08/2018 Status: F Source: PRIYANK 9:10 AM [facility] REPOSITORY [facility] [address] [place] [address] 12 Lead EKG 09/03/18 1629 MR#: [id number] Acct: [id number] Name: HUMAIRA BUSTAMANTE Rep #: [id number] : 1945 72 From: Danielito Foley MD [...] ECG Confirmed by DANIELITO FOLEY MD ([id number]), newspaper copy editor KAVITA CHUN ([id number]) on 09/08/2018 9:09:59 AM Referred By: DAVID Confirmed By:DANIELITO FOLEY MD 09/08/18 0910 Date Danielito Foley MD CC: Magdiel Lau MD; Dallas Vitale DO Signed EMERGENCY DEPARTMENT Observed: 09/03/2018 Status: F Source: PRIYANK SUMMARY 11:50 PM [facility] REPOSITORY [facility] Department [address] [place] [address] Emergency Department Summary 09/03/18 1840 MR#: [id number] Acct: [id number] Name: HUMAIRA BUSTAMANTE Rep #: [id number] : 1945 72 From: Magdiel Lau MD [...] status resolved This note was generated with Provesicaation software. It may contain incorrect words, spelling, [...] your Primary Care Provider. Call [facility] ([phone]) or report to the closest Emergency Room. Call 911 if necessary. 09/03/182349 <Electronically signed by Magdiel Lau MD> Date Magdiel Stevensigner Signature (If Indicated): Date CC: Dallas Vitale DO DISCHARGE INSTRUCTION Observed: 09/03/2018 Status: F Source: BOWIE 11:50 PM [facility] REPOSITORY [facility] Department [address] [place] [address] Discharge Instruction 09/03/18 1843 MR#: [id number] Acct: [id number] Name: HUMAIRA BUSTAMANTE Dunia Rep #: [id number] : 1945 72 From: Magdiel Lau MD [...] your Primary Care Provider. Call [facility] ([phone]) or report to the closest Emergency Room. Call 911 if necessary. 09/03/182349 <Electronically signed by Magdiel Lau MD> Date Magdiel Martinoer Signature (If Indicated): Date CC: Dallas Vitale DO URINALYSIS, COMPLETE Collected: 09/03/2018 Status: F Source: PRIYANK 5:10 PM [facility] REPOSITORY Order Comment: Order Date: 09/03/18 How was Urine Obtained? PIG MACHINE CRANE OPERATOR TO SPECIFY TYPE CODE TESTS RESULT OUT [...] URINE SEEN Performed By: #### L400.0001 #### [facility] [address] [facility] [place], [place], [id number] CHEST 1 VIEW Observed: 09/03/2018 Status: F Source: PRIYANK (PORTABLE) 4:24 PM [facility] REPOSITORY [facility] Imaging Services [address] [place] [address] Chest 1 View (Portable) MR#: [id number] Acct: [id number] Name: HUMAIRA BUSTAMANTE Rep #: [id number] : 1945 M 72 From: Gil Disla DO PCP: Dallas Vitale DO Status: PRE ER Study: Chest 1 View (Portable) Date of Exam: 09/03/18 Exam# [id number] Ordering Dr: Magdiel Lau MD STUDY: X-RAY [...] Gil Disla DO at 16:48 EST Tel [phone], Service support , CC: Magdiel Lau MD; Dallas Vitale DO Control Valve Technician: Signed BRAIN/HEAD WITHOUT Observed: 09/03/2018 Status: F Source: BOWIE CONTRAST 4:24 PM [facility] REPOSITORY [facility] Imaging Services [address] [place] [address] Brain/Head without Contrast MR#: [id number] Acct: [id number] Name: HUMAIRA BUSTAMATNE Rep #: [id number] : 1945 M 72 From: Gil Disla DO PCP: Dallas Vitale DO Status: REG ER Study: Brain/Head without Contrast Date of Exam: 09/03/18 Exam# [id number] Ordering Dr: Magdiel Lau MD STUDY: CT [...] Gil Disla DO at 17:44 EST Tel [phone], Service support , CC: Magdiel Lau MD; Dallas Vitale DO Control Valve Technician: Signed BEDSIDE GLUCOSE Collected: 09/03/2018 Status: F Source: PRIYANK 3:56 PM [facility] REPOSITORY TYPE CODE TESTS RESULT OUT OF RANGE REFERENCE UNITS LAB L501.080 70-110 mg/dL Normal BEDSIDE GLU 107 Result Comment: MANAGEMENT OF PATIENT CARE PER NURSING PROTOCOL Performed By: #### L501.080 #### [facility] Laboratory Point of Care [address] [place] [address] CBC W/DIFF, AUTOMATED Collected: 09/03/2018 Status: F Source: PRIYANK 3:46 PM [facility] REPOSITORY TYPE CODE TESTS RESULT OUT OF [...] Lymph 1.97 Performed By: #### L100.0100 #### [facility] [place], [address] BASIC METABOLIC Collected: 09/03/2018 Status: F Source: PRIYANK PROFILE (BMP) 3:46 PM [facility] REPOSITORY TYPE CODE TESTS RESULT OUT OF [...] 7 Performed By: #### L500.2500, L501.4010 #### [facility] [address] [place], [address] TROPONIN-I Collected: 09/03/2018 Status: F Source: BOWIE 3:46 PM [facility] REPOSITORY TYPE CODE TESTS RESULT OUT OF RANGE REFERENCE UNITS LAB L501.4010 <0.045 ng/mL Normal < 0.015 TROPONIN-I Result Comment: TROPONIN-I EXPECTED VALUES <0.045 Negative 0.045 - 0.590 Consistent with Cardiac Damage > OR = 0.600 Critical Value Not every elevated troponin is indicative of NM. These values should be used with clinical judgement in examining the patient's clinical picture for diagnosis. To establish a diagnosis of NM versus myocardial injury, there must be a demonstrated rise and/or fall in the troponin values, in addition to ischemic symptoms, EKG changes, new regional wall motion abnormality, and/or angiographical evidence. PLEASE NOTE: REFERENCE RANGES EDITED 17 Performed By: #### L500.2500, L501.4010 #### [facility] [address] [place], [address] DISCHARGE SUMMARY Observed: 08/20/2018 Status: F Source: BOWIE 5:22 PM [facility] REPOSITORY [facility] Records Department [address] [place] [address] Discharge Summary 08/20/18 1702 MR#: [id number] Acct: [id number] Name: HUMAIRA BUSTAMANTE Rep #: [id number] : 1945 72 From: Jesse Raymond DO PCP: Dallas Vitale DO Status: ADM IN Location: [place] [address] Discharge Date and Diagnosis - Problem List [...] who presented to the emergency department at [facility] on 08/18/2018 with cough and increased confusion. [...] affect, pleasant This note was generated with Recoup dictation software. It may contain incorrect words, [...] applicable Code Visit Inpatient Nati AND Jesse: [id number] Disch Hosp 08/20/18 1722 <Electronically signed by Jesse Raymond DO> Date Jesse Raymond DO Cosigner Signature (if applicable): Date CC: Starla Raymond; Dallas Vitale DO Signed DISCHARGE INSTRUCTION Observed: 08/20/2018 Status: F Source: PRIYANK 5:02 PM [facility] REPOSITORY [facility] Department [address] [place] [address] Instructions for Home/Discharge Instructions 08/20/18 1656 MR#: [id number] Acct: [id number] Name: HUMAIRA BUSTAMANTE Rep #: [id number] : 1945 72 From: Jesse Raymond DO [...] 08/20/2018 Status: F Source: PRIYANK 4:00 PM [facility] REPOSITORY TYPE CODE TESTS RESULT OUT OF REFERENCE UNITS RANGE LAB L501.080 70-110 mg/dL High BEDSIDE GLU 208 Result Comment: MANAGEMENT OF PATIENT CARE PER NURSING PROTOCOL Performed By: #### L501.080 #### [facility] Laboratory Point of Care [address] [place], [place] [address] BEDSIDE GLUCOSE Collected: 08/20/2018 Status: F Source: PRIYANK 11:32 AM [facility] REPOSITORY TYPE CODE TESTS RESULT OUT OF REFERENCE UNITS RANGE LAB L501.080 70-110 mg/dL High BEDSIDE GLU 168 Result Comment: MANAGEMENT OF PATIENT CARE PER NURSING PROTOCOL Performed By: #### L501.080 #### [facility] Laboratory Point of Care [address] [place] [address] BEDSIDE GLUCOSE Collected: 08/20/2018 Status: F Source: PRIYANK 6:39 AM [facility] REPOSITORY TYPE CODE TESTS RESULT OUT OF RANGE REFERENCE UNITS LAB L501.080 70-110 mg/dL Normal BEDSIDE GLU 107 Result Comment: MANAGEMENT OF PATIENT CARE PER NURSING PROTOCOL Performed By: #### L501.080 #### [facility] Laboratory Point of Care [address] [place] [address] BEDSIDE GLUCOSE Collected: 08/19/2018 Status: F Source: PRIYANK 9:57 PM [facility] REPOSITORY TYPE CODE TESTS RESULT OUT OF REFERENCE UNITS RANGE LAB L501.080 70-110 mg/dL High BEDSIDE GLU 205 Result Comment: Dr Mccann Followed MANAGEMENT OF PATIENT CARE PER NURSING PROTOCOL Performed By: #### L501.080 #### [facility] Laboratory Point of Care [address] [place] [address] BEDSIDE GLUCOSE Collected: 08/19/2018 Status: F Source: PRIYANK 4:16 PM [facility] REPOSITORY TYPE CODE TESTS RESULT OUT OF REFERENCE UNITS RANGE LAB L501.080 70-110 mg/dL High BEDSIDE GLU 237 Result Comment: MANAGEMENT OF PATIENT CARE PER NURSING PROTOCOL Performed By: #### L501.080 #### [facility] Laboratory Point of Care [address] [place] [address] BEDSIDE GLUCOSE Collected: 08/19/2018 Status: F Source: PRIYANK 11:31 AM [facility] REPOSITORY TYPE CODE TESTS RESULT OUT OF REFERENCE UNITS RANGE LAB L501.080 70-110 mg/dL High BEDSIDE GLU 223 Result Comment: MANAGEMENT OF PATIENT CARE PER NURSING PROTOCOL Performed By: #### L501.080 #### [facility] Laboratory Point of Care [address] [place] [address] BEDSIDE GLUCOSE Collected: 08/19/2018 Status: F Source: PRIYANK 6:51 AM [facility] REPOSITORY TYPE CODE TESTS RESULT OUT OF REFERENCE UNITS RANGE LAB L501.080 70-110 mg/dL High BEDSIDE GLU 113 Result Comment: MANAGEMENT OF PATIENT CARE PER NURSING PROTOCOL Performed By: #### L501.080 #### [facility] Laboratory Point of Care [address] [place], [place] [address] CBC W/DIFF, AUTOMATED Collected: 08/19/2018 Status: F Source: PRIYANK 6:05 AM [facility] REPOSITORY TYPE CODE TESTS RESULT OUT OF [...] Lymph 1.39 Performed By: #### L100.0100 #### [facility] [address] [place], [place], [address] BASIC METABOLIC Collected: 08/19/2018 Status: F Source: PRIYANK PROFILE (BMP) 6:05 AM [facility] REPOSITORY TYPE CODE TESTS RESULT OUT OF [...] Performed By: #### L500.2500, L501.2300, L501.5200 #### [facility] [address] [place], [place], [address] PHOSPHORUS Collected: 08/19/2018 Status: F Source: PRIYANK 6:05 [facility] [place] TYPE CODE TESTS RESULT OUT OF RANGE REFERENCE UNITS LAB L501.2300 2.5-4.9 mg/dL Low PHOS 2.3 Performed By: #### L500.2500, L501.2300, L501.5200 #### [facility] [address] [place], [address] MAGNESIUM Collected: 08/19/2018 Status: F Source: BOWIE 6:05 [facility] [place] TYPE CODE TESTS RESULT OUT OF RANGE REFERENCE UNITS LAB L501.5200 1.6-2.6 mg/dL Normal MG 2.0 Performed By: #### L500.2500, L501.2300, L501.5200 #### [facility] [address] [place], [address] HEMOGLOBIN A1C Collected: 08/19/2018 Status: F Source: PRIYANK 6:05 AM [facility] REPOSITORY TYPE CODE TESTS RESULT OUT OF RANGE REFERENCE UNITS LAB L501.9985 4.2-6.3 % Normal HGB A1C 6.1 Performed By: #### L501.9985 #### [facility] [address] [place], [address] BEDSIDE GLUCOSE Collected: 08/18/2018 Status: F Source: PRIYANK 10:12 PM [facility] REPOSITORY TYPE CODE TESTS RESULT OUT OF REFERENCE UNITS RANGE LAB L501.080 70-110 mg/dL High BEDSIDE GLU 216 Result Comment: MANAGEMENT OF PATIENT CARE PER NURSING PROTOCOL Performed By: #### L501.080 #### [facility] Point of Care [address] [facility] [place] [address] Observed: 08/18/2018 Status: F Source: BOWIE RESPIRATORY PANEL 7:25 AM [facility] MOLECULAR REPOSITORY RP PANEL RESULTS CALLED TO [...] (SUBTYPE H3) Performed By: #### M100.638 #### [facility] [address] [facility] [place], [address] Observed: 08/18/2018 Status: F Source: BOWIE CULTURE, SPUTUM 5:24 AM [facility] REPOSITORY Gram Stain Acceptable Specimen? Yes (<25 [...] Growth 3+ Performed By: #### M100.0800 #### [facility] Laboratory [address] [place] [address] [place], [address] HISTORY AND PHYSICAL Observed: 08/18/2018 Status: F Source: BOWIE EXAM 4:56 AM [facility] REPOSITORY [facility] Department [address] [place] [address] History and Physical 08/18/18 0337 MR#: [id number] Acct: [id number] Name: HUMAIRA BUSTAMANTE Rep #: [id number] : 1945 72 From: Bowen Lechuga MD PCP: Dallas Vitale DO Status: [id number] Problem List (1) Acute bronchitis Status: Acute [...] by Bowen Lechuga MD) Acute bronchitis (Acute) - Physical [...] (Auto) Neut % (Auto) Lymph % (Auto) [place] % (Auto) Assessment/Plan All Active Problems (Last [...] heparin. Code Visit Inpatient E AND M: 10263 Init Hosp L3 08/18/18 0456 <Electronically signed by Bowen Lechuga MD> Date Bowen Lechuga MD Cosigner Signature: Date (if applicable) CC: Bowen Lechuga MD; Dallas Vitale DO Signed EMERGENCY DEPARTMENT Observed: 08/18/2018 Status: C Source: BOWIE SUMMARY 3:47 AM [facility] REPOSITORY [facility] Medical Records Department [address] [place] [address] Emergency Department Summary 08/18/18 0019 MR#: [id number] Acct: [id number] Name: HUMAIRA BUSTAMANTE Rep #: [id number] : 1945 72 From: Nhan Wong MD [...] prostatic hypertrophy This note was generated with Recoup dictation software. It may contain incorrect words, [...] your Primary Care Provider. Call [facility] ([phone]) or report to the closest Emergency Room. Call 911 if necessary. 08/18/18 0059 <Electronically signed by Nhan Wong MD> Date Nhan Wong MD Cosigner Signature (If Indicated): Date CC: Dallas Vitale DO BRAIN/HEAD WITHOUT Observed: 08/18/2018 Status: F Source: BOWIE CONTRAST 1:00 AM [facility] REPOSITORY [facility] Imaging Services [address] [place] [address] Brain/Head without Contrast MR#: [id number] Acct: [id number] Name: ROBBYHUMAIRA Rep #: [id number] : 1945 M 72 From: Bro Fuentes MD PCP: Dallas Vitale DO Status: REG ER Study: Brain/Head without Contrast Date of Exam: 08/18/18 Exam# [id number] Ordering Dr: Nhan Wong MD STUDY: CT [...] CC: Dallas Vitale DO; Nhan Wong MD Control Valve Technician: Signed CTA CHEST W/WO Observed: 08/18/2018 Status: F Source: PRIYANK CONTRAST 12:56 AM [facility]PITAL REPOSITORY [facility] Services [address] [place] [address] CTA Chest W/WO Contrast MR#: [id number] Acct: [id number] Name: HUMAIRA BUSTAMANTE Rep #: [id number] : 1945 M 72 From: Bro Fuentes MD PCP: Dallas Vitale DO Status: REG ER Study: CTA Chest W/WO Contrast Date of Exam: 08/18/18 Exam# [id number] Ordering Dr: Nhan Wong MD STUDY: CTA [...] CC: Dallas Vitale DO; Nhan Wong MD Control Valve Technician: Signed Observed: 08/18/2018 Status: F Source: PRIYANK INFLUENZA A+B (RAPID 12:45 AM [facility]) REPOSITORY Order Date: 08/18/18 Has pt arrived? Y FLU A/B Rapid Negative test results should be confirmed with FLU PANEL MOLECULAR if indicated. Influenza Ag, Direct Presumptive NEGATIVE for Influenza A/B Antigen (See Note) Performed By: #### M101.0101 #### [facility] Laboratory [address] [facility] [place], [address] CHEST PA AND LATERAL Observed: 08/18/2018 Status: F Source: PRIYANK 12:01 AM [facility] REPOSITORY [facility] Imaging Services [address] [facility] [place] [address] Chest PA and Lateral MR#: [id number] Acct: [id number] Name: HUMAIRA BUSTAMANTE Rep #: [id number] : 1945 M 72 From: Ryan Abreu MD PCP: Dallas Vitale DO Status: REG ER Study: Chest PA and Lateral Date of Exam: 08/18/18 Exam# [id number] Ordering Dr: Nhan Wong MD STUDY: X-RAY [...] CC: Dallas Vitale DO; Nhan Wong MD Control Valve Technician: Signed URINALYSIS, COMPLETE Collected: 08/17/2018 Status: F Source: PRIYANK 12:50 AM [facility] REPOSITORY Order Comment: Order Date: 08/17/18 How [...] URINE SEEN Performed By: #### L400.0001 #### [facility] [address] [place], [place], [address] BASIC METABOLIC Collected: 08/17/2018 Status: F Source: PRIYANK PROFILE (BMP) 12:14 AM [facility] REPOSITORY TYPE CODE TESTS RESULT OUT OF [...] GAP 8 Performed By: #### L500.2500 #### [facility] [address] [place], [address] CBC W/DIFF, AUTOMATED Collected: 08/17/2018 Status: C Source: BOWIE 12:14 AM [facility] REPOSITORY TYPE CODE TESTS RESULT OUT OF [...] as: December Performed By: #### L100.0100 #### [facility] [address] [facility] [place], [address] LACTIC ACID Collected: 08/17/2018 Status: F Source: BOWIE 12:14 AM [facility] REPOSITORY Order Comment: Yes/No query for Sepsis Lactate Rule Y TYPE CODE TESTS RESULT OUT OF RANGE REFERENCE UNITS LAB L503.6005 0.4-2.0 mmol/L Normal LACTIC ACID 1.0 Performed By: #### L503.6005 #### [facility] [address] [place], [address] CBC W/DIFF, AUTOMATED Collected: 05/12/2018 Status: F Source: BOWIE 9:31 AM [facility] REPOSITORY TYPE CODE TESTS RESULT OUT OF [...] Lymph 2.14 Performed By: #### L100.0100 #### [facility] [address] [place], [place], [address] HEMOGLOBIN A1C Collected: 05/12/2018 Status: F Source: PRIYANK 9:31 AM [facility] REPOSITORY TYPE CODE TESTS RESULT OUT OF RANGE REFERENCE UNITS LAB L501.9985 4.2-6.3 % Normal HGB A1C 5.8 Performed By: #### L501.9985 #### [facility] [address] [facility] [address] [place], [address] COMPREHENSIVE METABOLIC Collected: 05/12/2018 Status: F Source: PRIYANK CALVERT 9:31 AM [facility] REPOSITORY TYPE CODE TESTS RESULT OUT OF [...] Performed By: #### L500.4050, L500.4100, L501.1400 #### [facility] [address] [place], [place], [address] LIPID PROFILE Collected: 05/12/2018 Status: F Source: PRIYANK 9:31 AM [facility] REPOSITORY TYPE CODE TESTS RESULT OUT OF [...] Performed By: #### L500.4050, L500.4100, L501.1400 #### [facility] [address] [facility] [facility] [address] [place], [place], [address] URIC ACID Collected: 05/12/2018 Status: F Source: PRIYANK 9:31 AM [facility] REPOSITORY TYPE CODE TESTS RESULT OUT OF RANGE REFERENCE UNITS LAB L501.1400 3.5-7.2 mg/dL Normal URIC 5.5 Result Comment: The drugs N-Acetylcysteine and Metamizole may falsely depress this assay. Performed By: #### L500.4050, L500.4100, L501.1400 #### [facility] [address] [place], [place], [address] MICROALB:CREAT Collected: 05/12/2018 Status: F Source: PRIYANK RATIO,RANDOM UR 9:31 AM [facility] REPOSITORY TYPE CODE TESTS RESULT OUT OF RANGE REFERENCE UNITS LAB L501.1200 NO RANGE EST. mg/dL Normal UR CREAT 76.10 LAB L502.0500 NO RANGE EST. mg/L Normal 20.0 MICROALBUMIN ,UR LAB L502.0600 <30 mg/g CRE mg/g CRE Normal 26.3 MALB:CREAT Performed By: #### L502.0250 #### [facility] [address] [place], [address] ALLERGIES ALLERGIES DATE TYPE / CODE NAME / CODE REACTION SEVERITY SOURCE 09/09/2018 Drug Penicillins/F Unknown Unknown [facility] Allergy/4160 [id number](RXN Hospital 43952(SNOMED ORM) Repository CT) 01/06/2015 Drug No Known Unknown [facility] Allergy/4160 Allergies/F00 Hospital 33299(SNOMED [id number](RXNOR Repository CT) M) ENCOUNTERS ENCOUNTERS ADMIT/DISCHARGE ACCOUNT ADMITTING ENCOUNTER LOCATION SOURCE NUMBER CLASS 09/09/2018/ [id number] Emergency [facility] 9 [facility] ing:ED Repository 09/03/2018/ [id number] Emergency Malin Priyank 9 6 [facility] ing:ED Repository 08/18/2018/ [id number] [facility] [place] [facility] ing:FX1Opmn: Repository [id number]: 1 08/18/2018 [id number] Agyepong, Ambulatory BMSBuilding:B Priyank 0 [place] [facility] Repository 08/18/2018 [id number] Agyepong, Ambulatory BMSBuilding:B Priyank 5 [place] Repository 08/18/2018 [id number] Agyepong, Ambulatory BMSBuilding:B Priyank 6 [place] [facility] Repository 05/12/2018 [id number] Ambulatory [facility] 1 [facility] ing:BFHLAB Repository PAYERS PAYERS ENCOUNTER GUARANTOR PAYER SUBSCRIBER SOURCE 09/09/2018 HUMAIRA Duque Primary HUMAIRA Yost [id number] Insurance:MEDICARE [id number] Number: Repository [address]Vld: [phone] [id number] [phone] () Date:2018-09-09 09/09/2018 Secondary HUMAIRA Yost Insurance:AARPPolicy [place]ST[place]SDOB: Community Number: [id number] [facility] [id number] Repository Date:3276-85-10PB [address], [place] [address]UG: 09/09/2018 Tertiary NOT GIVENUNK Malin Insurance:SELF PAY [facility] Number: Effective Repository Date:2018-09-09 09/03/2018 HUMAIRA Duque Primary HUMAIRA Yost [id number] Insurance:AARPPolicy [place]ST[place]SDOB: Community [address] Number: [id number], [place] [id number] Repository [address]Orb: [phone]) Date:5279-46-54IL [phone] () [id number], [place] [address]YM: 09/03/2018 Secondary HUMAIRA Yost Insurance:RR HAST[place]SDOB: Community MEDICAREPolicy [id number] Hospital Number: Repository [id number] Date:9762-94-96ND [address] [address]OJMQOMA, [place] [address]PI: 09/03/2018 Tertiary NOT GIVENUNK Priyank Insurance:SELF PAY [facility] Number: Effective Repository Date:2018-09-03 08/18/2018 HUMAIRA Duque Primary HUMAIRA Yost [id number] Insurance:MEDICARE [place]OB: Community [address] PART A BPolicy [id number] Number: Repository [address]Mdw: 330 [id number] [phone] Date:2018-08-17 08/18/2018 Secondary HUMAIRA Duque Priyank Insurance:AARPPolicy [place]ST[place]OB: Community Number: [id number] Hospital [id number] Repository Date:1779-41-23DY [address]LQWXR, [place] [address]IC: 08/18/2018 Tertiary NOT GIVENUNK Malin Insurance:SELF PAY [facility] Number: Effective Repository Date:2018-08-17 08/18/2018 HUMAIRA Duque Primary Insurance:RR HUMAIRA Yost [id number] MEDICAREPolicy [place]OB: Community [address] Number: [id number], [place] [id number] Repository [address]Jqh: ([phone]) Date:2405-79-83FM [phone] () [address]IQOJ[place]QS, [place] [address]IE: 08/18/2018 Secondary HUMAIRA Duque Priyank Insurance:AARPPolicy [place]ST[place]OB: Community Number: [id number] Hospital [id number] Repository Date:8661-57-22DT [address]PYCIQ, [place] [address]EP: 08/18/2018 Tertiary NOT GIVENUNK Malin Insurance:SELF PAY [facility] Number: Effective Repository Date:2018-08-18 08/18/2018 HUMAIRA Duque Primary HUMAIRA Yost [id number] Insurance:AARPPolicy [place]SDOB: Community [address] Number: [id number], [place] [id number] Repository [address]Kqw: ([phone]) Date:2167-94-25BQ [phone] () 1907[place], [place] [address]YT: 08/18/2018 Secondary HUMAIRA Duque Priyank Insurance:RR [place]ST[place]OB: Community MEDICAREPolicy [id number] Hospital Number: Repository [id number] Date:0455-28-20[place] [address] [address]UDJ, [place] [address]SJ: 08/18/2018 Tertiary NOT GIVENUNK Priyank Insurance:SELF PAY [facility] Number: Effective Repository Date:2018-08-18 08/18/2018 HUMAIRA Duque Primary Insurance:RR HUMAIRA Yost [id number] MEDICAREPolicy [place]OB: Community [address] Number: [id number], [place] [id number] Repository [address]Uyd: (330) Date:5125-87-68ZZ [phone] () [address]SOJKCPR, [place] [address]JQ: 08/18/2018 Secondary HUMAIRA Yost Insurance:[facility] HASTINGSDOB: [facility] Number: [id number] Hospital [id number] Repository Date:1230-11-88GH [address]XXFXQEN, [place] [address]ID: 08/18/2018 Tertiary NOT GIVENUNK Malin Insurance:SELF PAY [facility] Number: Effective Repository Date:2018-08-18 05/12/2018 Humaira Duque Primary Humaira Yost [id number] Insurance:MEDICARE [facility] [address] [facility] [id number] Number: Repository [address]Nyf: 330 [id number] [phone] () Date:2018-05-12 05/12/2018 Secondary ABRAHAM A Priyank Insurance:[facility] HASTINGSDOB: [facility] [id number] [id number] Hospital Number: Repository [id number] Date:0988-89-66AN [address]JGTQEXF, [place] [address]EM: 05/12/2018 Tertiary NOT GIVENUNK Priyank Insurance:SELF PAY [facility] Number: Effective Repository Date:2018-05-12
== END 2018-09-09 15:47 | disposition home or self-care (01) ==
PROVIDERS: Emergency Provider Emergency Medicine; Family Provider Family Medicine; PCP Family Medicine
DX: F03.90 Unspecified dementia, unspecified severity, without behavioral disturbance, psychotic disturbance, mood disturbance, and anxiety (principal); E66.9 Obesity, unspecified
CPT/HCPCS: 80048; 81001; 85025; 99285

== ENCOUNTER → 2019-02-26 | Outpatient (CLI) | payer MEDICARE, OTHER, SELFPAY ==
--- NOTE | 2019-02-26 08:51 | RAD_ITS ---
STUDY: X-RAY CHEST REASON FOR EXAM: Male, 73 years old. Cough TECHNIQUE: PA and lateral views of the chest COMPARISON: X-Ray Chest September 03, 2018 FINDINGS: Left base atelectasis versus small infiltrate is present. The right lung is clear. There are no pleural effusions. There is no pneumothorax. The heart is normal in size. The visualized osseous structures are within normal limits. RAD/Chest PA and Lateral IMPRESSION: Left base atelectasis versus small infiltrate. Electronically Signed: Yoan Shahid, at 17:13 EDT Tel , Service support ,
== END | disposition home or self-care (01) ==
LOC: MTRAD 08:50
PROVIDERS: Family Provider Family Medicine; PCP Family Medicine; Referring Provider Family Medicine; Visit Provider Family Medicine
DX: R05 Cough (principal)
CPT/HCPCS: 71046

== ENCOUNTER → 2019-07-02 | Outpatient (CLI) | payer MEDICARE, OTHER, SELFPAY ==
[2019-07-02 10:10] LABS: Absolute Lymphocyte Count 1.77 X10^3/uL (0.83-4.51); Basophil# 0.03 X10^3/uL; Basophil% 0.4 % (0-1); Eosinophil# 0.16 X10^3/uL; Eosinophils% 2.1 % (0-5); Hematocrit 43.1 % (40-54); Lymphocyte # 1.77 X10^3/ul (4.0); Lymphocyte % 22.9 % (19-41); Mean Corp Hgb Conc 32.5 g/dL (32-36); Mean Corpuscular Hgb 28.5 pg (27.0-32.0); Mean Corpuscular Volume 87.8 fL (80-94); Mean Platelet Vol. 10.3 fl (6.2-12.0); Monocyte# 0.77 X10^3/uL; NRBC Flagged by Analyzer 0 % (0-5); Neutrophil # 4.97 X10^3/uL (2.7-7.7); Neutrophil % 64.2 % (47-70); Platelet Count 213 K/mm3 (150-450); RBC Distribution Width CV 13.2 % (11.6-14.6); RBC Distribution Width SD 42.4 fl (35.1-43.9); Red Blood Count 4.91 M/mm3 (4.6-6.2); White Blood Count 7.7 K/mm3 (4.4-11.0)
[2019-07-02 10:36] LABS: Hemoglobin A1c 6.1 % (4.2-6.3)
[2019-07-02 12:34] LABS: AST(SGOT) 12 U/L (15-37); Alanine Aminotransfer ALT/SGPT 23 U/L (16-61); Albumin, Serum 3.7 g/dL (3.2-5.0); Alkaline Phosphatase 99 U/L (45-117); Anion Gap 10 (5-15); BUN 20 mg/dL (7-18); BUN/Creat Ratio 15.7 RATIO (10-20); Calcium,Total 9.3 mg/dL (8.5-10.1); Chloride 105 mmol/L (98-107); Cholesterol 211 mg/dL (200); Creatinine, Serum 1.27 mg/dL (0.70-1.30); EST Glomerular Filtration Rate 59 mL/min (>60); Est Glom Filt Rate - Afr Amer 71 mL/min (>60); Globulin 3.8 g/dL (2.2-4.2); Glucose 195 mg/dL (74-106); High Density Lipoprotein 42 mg/dL; Potassium 3.7 mmol/L (3.5-5.1); Protein, Total 7.5 g/dL (6.4-8.2); Sodium Level 141 mmol/L (136-145); Triglycerides 162 mg/dL; Uric Acid 6.1 mg/dL (3.5-7.2); Very Low Density Lipoprotein 32 mg/dL (5-40)
== END | disposition home or self-care (01) ==
LOC: LAB.FUTURE 09:03 → BFHLAB 09:43
PROVIDERS: Family Provider Family Medicine; PCP Family Medicine; Visit Provider Family Medicine
DX: E11.9 Type 2 diabetes mellitus without complications (principal); M10.9 Gout, unspecified; Z51.81 Encounter for therapeutic drug level monitoring
CPT/HCPCS: 36415; 80053; 80061; 83036; 84550; 85025

== ENCOUNTER 2020-10-12 15:27 | Outpatient (RCR) | payer MEDICARE, OTHER, SELFPAY | END 2020-10-12 23:59 | LOC: IMMUN 15:27 | PROVIDERS: PCP Family Medicine; Referring Provider Family Medicine; Visit Provider Family Medicine | DX: Z23 Encounter for immunization (principal) | CPT/HCPCS: 0011A; 0012A ==

== ENCOUNTER → 2020-10-27 14:24 | Outpatient (CLI) | payer MEDICARE, OTHER, SELFPAY ==
[2020-10-27 15:30] LABS: Absolute Lymphocyte Count 3.08 X10^3/uL (0.83-4.51); Absolute Neutrophil Count 5.3 X10^3/uL (2.0-7.7); Basophil# 0.04 X10^3/uL; Basophil% 0.4 % (0-1); Eosinophils% 2.1 % (0-5); Hematocrit 42.6 % (40-54); Hemoglobin 13.3 g/dL (13.0-16.5); Lymphocyte # 3.08 X10^3/ul (4.0); Lymphocyte % 32.4 % (19-41); Mean Corp Hgb Conc 31.2 g/dL (32-36); Mean Corpuscular Hgb 27.1 pg (27.0-32.0); Mean Corpuscular Volume 86.9 fL (80-94); Mean Platelet Vol. 10.7 fl (6.2-12.0); Monocyte% 9.5 % (0-10); NRBC Flagged by Analyzer 0 % (0-5); Neutrophil # 5.25 X10^3/uL (2.7-7.7); Neutrophil % 55.2 % (47-70); Platelet Count 246 K/mm3 (150-450); RBC Distribution Width CV 13.5 % (11.6-14.6); RBC Distribution Width SD 42.3 fl (35.1-43.9); White Blood Count 9.5 K/mm3 (4.4-11.0)
[2020-10-27 15:40] LABS: Vitamin B12 820 pg/mL (211-911)
[2020-10-27 15:45] LABS: ALB/GLOB Ratio 0.9 RATIO (0.9-2.4); AST(SGOT) 15 U/L (15-37); Alanine Aminotransfer ALT/SGPT 22 U/L (16-61); Albumin, Serum 3.6 g/dL (3.2-5.0); Alkaline Phosphatase 128 U/L (45-117); Anion Gap 8 (5-15); BUN 12 mg/dL (7-18); BUN/Creat Ratio 11.2 RATIO (10-20); Calcium,Total 9.6 mg/dL (8.5-10.1); Chloride 105 mmol/L (98-107); Cholesterol 208 mg/dL (200); Creatinine, Serum 1.07 mg/dL (0.70-1.30); EST Glomerular Filtration Rate 71 mL/min (>60); Est Glom Filt Rate - Afr Amer 86 mL/min (>60); Globulin 3.8 g/dL (2.2-4.2); Glucose 83 mg/dL (74-106); High Density Lipoprotein 41 mg/dL; Potassium 4.1 mmol/L (3.5-5.1); Protein, Total 7.4 g/dL (6.4-8.2); Sodium Level 139 mmol/L (136-145); Triglycerides 196 mg/dL; Uric Acid 6.1 mg/dL (3.5-7.2); Very Low Density Lipoprotein 39 mg/dL (5-40)
[2020-10-27 15:46] LABS: Hemoglobin A1c 5.8 % (3.8-5.6)
== END ==
PROVIDERS: PCP Family Medicine; Visit Provider Family Medicine
DX: E11.9 Type 2 diabetes mellitus without complications (principal); M10.9 Gout, unspecified; Z51.81 Encounter for therapeutic drug level monitoring
CPT/HCPCS: 36415; 80053; 80061; 82607; 83036; 84550; 85025

== ENCOUNTER → 2020-11-02 15:50 | Outpatient (CLI) | payer MEDICARE, OTHER, SELFPAY ==
[2020-11-02 18:25] LABS: Microalbumin,Random Urine 11.6 mg/L (NO RANGE EST.); Microalbumin:Creatinine Ratio 4.6 mg/g CRE (<30 mg/g CRE)
== END ==
PROVIDERS: PCP Family Medicine; Referring Provider Family Medicine; Visit Provider Family Medicine
DX: E11.9 Type 2 diabetes mellitus without complications (principal); M10.9 Gout, unspecified; Z51.81 Encounter for therapeutic drug level monitoring
CPT/HCPCS: 82043; 82570

== ENCOUNTER 2021-01-21 19:10 | Emergency (ER) | payer MEDICARE, OTHER, SELFPAY ==
[2021-01-21 19:10] VITALS: BP 135/74; PULSE 77; RESP 18; TEMP 36.7; O2SAT 94; BMI 28.8
--- NOTE | 2021-01-21 19:37 | ED.VIS.FALL ---
HPI HPI - Fall History of Present Illness Chief Complaint: Fall Informant: patient, spouse/S.O. and family Occured/Mechanism Occurred: Today Narrative: Patient stood up the table fell at his left ear on the table as he went down causing a laceration. Pain/Injury Quality of Pain: Dull Current Severity: Mild Maximum Severity: Mild Narrative Narrative: 75-year-old male with Lewy body dementia got up from the kitchen table and when he went to walk he started to fall his tried to catch him and as he went down he hit his left ear on the kitchen table causing a laceration. No LOC. Minor skin tear to his left elbow. Patient is a limited informant due to his dementia. is unsure of his last tetanus. Tetanus Immunization: Unknown Prior similar symptoms: No Recent Illness/Hospitalization: No PFSH PFSH Medical History BPH (benign prostatic hyperplasia) Dementia Diabetes Gout HTN (hypertension) Home Medications metformin 500 mg PO DAILY 01/07/15 [History Last Taken 08/17/18 06:00] aspirin 81 mg PO DAILY 08/17/18 [History Last Taken 08/17/18 18:00] memantine 10 mg PO BID 08/17/18 [History Last Taken 08/17/18 18:00] cephalexin 500 mg PO BID 5 Days #10 tab 01/21/21 [Rx Last Taken Unknown] cholecalciferol (vitamin D3) [Vitamin D3] 125 mcg PO DAILY 01/21/21 [History Last Taken Unknown] lorazepam [Ativan] 0.5 mg PO Q4H 01/21/21 [History Last Taken Unknown] oxycodone 2.5 mg PO Q4H 01/21/21 [History Last Taken Unknown] quetiapine [Seroquel] 50 mg PO QHS 01/21/21 [History Last Taken Unknown] vitamin B complex 1 cap PO DAILY 01/21/21 [History Last Taken Unknown] Allergy/AdvReac Type Severity Reaction Status Date / Time Penicillins Allergy Unknown Verified 01/21/21 19:12 Family History Mother Hypertension Father CVA (cerebral vascular accident) Social History Smoking Status: Never smoker ROS ROS ED ROS Narrative Elderly male family denies any recent illness. Review of Systems ROS Unobtainable: due to mental status Constitutional Constitutional ED: Denies fever(s) Eyes Eyes: Denies change in vision ENT ENT ED: Reports ear pain; Denies sore throat Cardiovascular Cardiovascular: Denies chest pain Respiratory/Chest Respiratory/Chest: Denies dyspnea Gastrointestinal Gastrointestinal: Denies abdominal pain Genitourinary Genitourinary ED: Denies dysuria Musculoskeletal Musculoskeletal: Denies myalgias Integumentary Denies rash Neurologic Neurologic: Denies headache(s) Psychiatric Psychiatric: Denies depression Endocrine Endocrinology: Denies polyuria Hematologic/Lymphatic Hematologic/Lymphatic: Denies easy bruising Allergic/Immunologic Allergic/Immunologic ED: Denies urticaria EXAM Physical Exam Narrative Exam Narrative: Only male no acute distress. Vital signs stable afebrile. HEENT exam left ear is a large diagonal laceration across the inner aspect of the outer ear. There is loss of cartilage. Otherwise there is no other signs of head trauma. Scalp is nontender. C-spine is nontender. Lungs are clear. Heart regular rhythm. Chest wall nontender. Abdomen soft nontender. Moving all 4 extremities. Mild abrasion left elbow but full flexion extension no deformity nontender. Small subungual hematoma of his left thumb but no bony deformity or tenderness to the left hand or wrist. Lower extremities are unremarkable. No shortening or rotation both hips are nontender. Right upper extremity is nontender. Back nontender no signs of trauma. Neurologically is awake. He suffers some dementia. He follows limited commands. This is his baseline. Const Vital Signs: 01/21/21 19:10 01/21/21 19:16 Temperature 98.1 F Temperature Source Temporal Pulse Rate 77 Respiratory Rate 18 Respiratory Effort Normal Non-Labored Respiratory Depth Normal Respiratory Pattern Normal Blood Pressure 135/74 H Blood Pressure Mean 94 Pulse Ox 94 Oxygen Delivery Method Room Air Room Air HEENT Reports normocephalic HEENT Narrative: Left ear laceration. Diagonal. Sternal ear. Loss of cartilage. Negative for trauma Eyes PERRL and EOMs intact bilaterally Neck full ROM, no lymphadenopathy and supple General: Negative for tenderness Chest Wall inspection of chest normal and palpation of chest normal Resp normal respiratory effort and clear to auscultation bilaterally Cardio regular rate, regular rhythm and no murmurs GI non-tender, non-distended and no masses Auscultation: normoactive bowel sounds Palpation: soft Back/Spine no CVA tenderness Extremity General Extremety ED: Yes normal exam except as noted General Extremity: normal exam except as noted Neuro Sensorium / Orientation: alert Psych mental status grossly normal Psych Narrative: For this patient. Skin Skin Narrative: Left ear laceration. Minor skin tear left elbow. Rashes: no rashes MDM MDM MDM Narrative Medical decision making narrative: Tetanus will be updated. Left ear will be cleaned and repaired. He will be placed on antibiotics due to the cartilage injury. Procedures Lacerations Left outer ear laceration: Length: 2.36 in Depth: Ear cartilage Shape: Linear Prep: Sterile Conditions and Shure-Clens Laceration repair: Irrigated, Lidocaine, Local, Skin sutures and Wound explored Suture Information: Ethilon, 5-0 and - (Anterior laceration was cleaned and irrigated. Cleaned with Shur-Clens and iodine. Washed with saline. Explored. Closed using 8 simple interrupted 5-0 Ethilon sutures. There is a small through and through laceration the posterior ear it was also closed using one 5-0 Ethilon suture.) Discharge Plan Triage Chief Complaint: Fall ED Provider: Ameya Bassett Dx/Rx/DC Orders Clinical Impression: Fall, Laceration of ear, external, left, Skin tear of left elbow without complication Instructions: ED Laceration: All Closures Prescriptions: New cephalexin 500 mg tablet 500 mg PO BID 5 Days Qty: 10 RF: 0 No Action metformin 500 MG tablet 500 mg PO DAILY RF: 0 aspirin 81 MG tablet,chewable 81 mg PO DAILY RF: 0 memantine 5 MG tablet 10 mg PO BID RF: 0 lorazepam [Ativan] 0.5 mg Tablet 0.5 mg PO Q4H RF: 0 vitamin B complex Capsule 1 cap PO DAILY RF: 0 oxycodone 5 mg Tablet 2.5 mg PO Q4H RF: 0 quetiapine [Seroquel] 50 mg Tablet 50 mg PO QHS RF: 0 cholecalciferol (vitamin D3) [Vitamin D3] 125 mcg (5,000 unit) Tablet 125 mcg PO DAILY RF: 0 Primary Care Provider: Dallas Vitale Referrals: Dallas Vitale DO [Primary Care Provider] - 10 Day for suture removal Activity Restrictions/Additional Instructions: Ice to the area to decrease pain. Tylenol for pain. Clean daily with soap and water. Watch for any signs of infection is seen return. Suture removal in 7 to 10 days. Antibiotic twice daily to prevent infection. Disposition Disposition: Home, self care
[2021-01-21] MEDS: Lidocaine 1% (20 ml mdv) 20 ML Vial INFILT (20:59)
[2021-01-21] MEDS: Diphth,Pertuss(Acell),Tet Vac 0.5 ML Vial IM (20:59)
== END 2021-01-21 21:15 | disposition home or self-care (01) ==
PROVIDERS: Emergency Provider Emergency Medicine; PCP Family Medicine
DX: S01.312A Laceration without foreign body of left ear, initial encounter (principal); S51.012A Laceration without foreign body of left elbow, initial encounter; E11.9 Type 2 diabetes mellitus without complications; X58.XXXA Exposure to other specified factors, initial encounter; Z79.82 Long term (current) use of aspirin; Z79.84 Long term (current) use of oral hypoglycemic drugs; Z79.899 Other long term (current) drug therapy
CPT/HCPCS: 12011; 90471; 90715; 99283